=== PATIENT | female | born 1995 | race African-American/Black ===

== ENCOUNTER 2016-08-02 22:20 | Emergency (ER) | payer BC ==
[~2016-08-02] VITALS: Ht 157.5 cm; Wt 89.6 kg
[~2016-08-02 22:20] MED LIST: DICY1TAB26 PO; PANT20 PO; RANI150 PO; ZOFR4TAB3 PO
[2016-08-02 22:22] VITALS: BP 138/83; PULSE 107; RESP 18; TEMP 97.9; O2SAT 96
[2016-08-02 23:32] LABS: BACTERIA, URINE RARE /hpf; BLOOD, URINE NEG (NEG); GLUCOSE,URINE NEG (NEG); HYALINE CAST, URINE 3 /lpf (RARE); KETONE, URINE NEG (NEG); MUCUS URINE FEW /lpf (OCC); NITRITE,URINE NEG (NEG); SQUAMOUS EPITHELIAL CELL URINE 1 /hpf (0-5); URINE COLOR YELLOW (YELLW/STRAW)
[2016-08-03] MEDS ORDERED: CEPHALEXIN MONOHYDRATE 500 MG CAP PO ONE (00:15)
[2016-08-03] MEDS ORDERED: IBUPROFEN 600 MG TAB PO ONE (00:15)
[2016-08-03] MEDS ORDERED: CEPH-460 PO (00:24)
[2016-08-03] MEDS ORDERED: DIFL150T PO (00:24)
--- NOTE | 2016-08-03 00:25 | PD ---
HPI Chief Complaint: Complaint Time Seen by Provider: 22:50 Travel History International Travel<30 days: No Contact w/Intl Traveler<30days: No Traveled to known affect area: No [facility] Past Medical History Diminished Hearing: No Immunizations Current: Yes ?: Not LMP: 07/20/16 Past Surgical History Surgical History: No Previous Surgery Social History Alcohol Use: No Tobacco Use: No Substance Use: No Allergies-Medications (Allergen,Severity, Reaction): Coded Allergies: No Known Allergies (Unverified , 08/02/16) Reported Meds & Prescriptions Reported Meds & Active Scripts Active Diflucan (Fluconazole) 150 Mg Tab 150 Mg PO ONCE Keflex (Cephalexin) 500 Mg Cap 500 Mg PO Q6H 7 Days Data Data Last Documented VS Vital Signs Date Time Temp Pulse Resp B/P Pulse Ox O2 Delivery O2 Flow Rate FiO2 08/02/16 22:22 97.9 107 18 138/83 96 Room Air Orders Ua Includes Microscopic (08/02/16 22:50) Ed Urine Pregnancytest Poc (08/02/16 22:50) Wet Prep Profile (08/02/16 22:50) Gc And Chlamydia Pcr (08/02/16 22:50) Ibuprofen (Motrin) (08/03/16 00:15) Cephalexin (Keflex) (08/03/16 00:15) Labs Laboratory Tests Test 08/02/16 08/03/16 23:05 00:05 Urine Color YELLOW Urine Turbidity HAZY Urine pH 6.0 Urine Specific [place] 1.024 Urine Protein 30 mg/dL Urine Glucose (UA) NEG mg/dL Urine Ketones NEG mg/dL Urine Occult Blood NEG Urine Nitrite NEG Urine Bilirubin NEG Urine Urobilinogen LESS THAN 2.0 MG/DL Urine Leukocyte Esterase LARGE Urine RBC 163 /hpf Urine WBC 4 /hpf Urine Squamous Epithelial 1 /hpf Cells Urine Bacteria RARE /hpf Urine Hyaline Casts 3 /lpf Urine Mucus FEW /lpf Urine Yeast (Budding) OCC Microscopic Urinalysis Comment Chlamydia trachomatis DNA NOT DETECTED (PCR) Neisseria gonorrhoeae DNA NOT DETECTED (PCR) Clue Cells (Wet Prep) PRESENT Vaginal Trichomonas (Wet Prep) NONE SEEN Vaginal Yeast (Wet Prep) PRESENT MDM Medical Decision Making Medical Screen Exam Complete: Yes Emergency Medical Condition: Yes Diagnosis Primary Impression: UTI (urinary tract infection) Qualified Code: N30.01 - Acute cystitis with hematuria Additional Impressions: Yeast infection Vaginitis Additional Instructions: Recommend he follow-up with a primary care provider and your 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 Scripts Fluconazole (Diflucan)150 Mg [id number] Mg PO ONCE #1 TAB Ref 0 Prov:Yoan Saucedo MD 08/03/16 Cephalexin (Keflex)500 Mg [id number] Mg PO Q6H 7 Days Ref 0 Prov:Yoan Saucedo MD 08/03/16 Yoan Saucedo MD Aug 03, 2016 00:25
[2016-08-03 07:19] LABS: CHLAMYDIA PCR NOT DETECTED (NOT DETECT); NEISSERIA PCR NOT DETECTED (NOT DETECT)
--- NOTE | 2016-08-03 17:33 | PD ---
HPI Chief Complaint: Complaint Time Seen by Provider: 22:50 Travel History International Travel<30 days: No Contact w/Intl Traveler<30days: No Traveled to known affect area: No History of Present Illness HPI Patient is a 20 year old female presents for evaluation of vaginal burning and pain. Patient states she was discussing with her mother who told her she has a yeast infection and she had treated herself with vaginal treatments for the past two days. She states then started burning and cramping. States no chance for because she is a virgin. Patient denies fevers. Patient states has had pelvic exam once before and didn't like it. Denies n/v/d, chest pain, extremity pain, dysuria. PFSH Past Medical History Diminished Hearing: No Immunizations Current: Yes ?: Not LMP: 07/20/16 Past Surgical History Surgical History: No Previous Surgery Social History Alcohol Use: No Tobacco Use: No Substance Use: No Allergies-Medications (Allergen,Severity, Reaction): Coded Allergies: No Known Allergies (Unverified , 08/02/16) Reported Meds & Prescriptions Reported Meds & Active Scripts Active Diflucan (Fluconazole) 150 Mg Tab 150 Mg PO ONCE Keflex (Cephalexin) 500 Mg Cap 500 Mg PO Q6H 7 Days Review of Systems Except as stated in HPI: all other systems reviewed are Neg Physical Exam Narrative GENERAL: WD/WN in nad. SKIN: Warm and dry. HEAD: Atraumatic. Normocephalic. EYES: Pupils equal and round. No scleral icterus. No injection or drainage. ENT: No nasal bleeding or discharge. Mucous membranes pink and moist. NECK: Trachea midline. No JVD. CARDIOVASCULAR: Regular rate and rhythm. RESPIRATORY: No accessory muscle use. Clear to auscultation. Breath sounds equal bilaterally. GASTROINTESTINAL: Abdomen soft, non-tender, nondistended. Hepatic and splenic margins not palpable. GENITOURINARY: Performed with female nurse chiropractic physician at all times. Patient has signficant vaginal tenderness limiting exam. Has reddened vaginal kaur and moderate yeast like discharge. No cervical discharge. No obvious adenexal fullness nor tenderness. MUSCULOSKELETAL: Extremities without clubbing, cyanosis, or edema. No obvious deformities. NEUROLOGICAL: Awake and alert. No obvious cranial nerve deficits. Motor grossly within normal limits. Five out of 5 muscle strength in the arms and legs. Normal speech. PSYCHIATRIC: Appropriate mood and affect; insight and judgment normal. Data Data Last Documented VS Vital Signs Date Time Temp Pulse Resp B/P Pulse Ox O2 Delivery O2 Flow Rate FiO2 08/02/16 22:22 97.9 107 18 138/83 96 Room Air Orders Ua Includes Microscopic (08/02/16 22:50) Ed Urine Pregnancytest Poc (08/02/16 22:50) Wet Prep Profile (08/02/16 22:50) Gc And Chlamydia Pcr (08/02/16 22:50) Ibuprofen (Motrin) (08/03/16 00:15) Cephalexin (Keflex) (08/03/16 00:15) Labs Laboratory Tests Test 08/02/16 08/03/16 23:05 00:05 Urine Color YELLOW Urine Turbidity HAZY Urine pH 6.0 Urine Specific [place] 1.024 Urine Protein 30 mg/dL Urine Glucose (UA) NEG mg/dL Urine Ketones NEG mg/dL Urine Occult Blood NEG Urine Nitrite NEG Urine Bilirubin NEG Urine Urobilinogen LESS THAN 2.0 MG/DL Urine Leukocyte Esterase LARGE Urine RBC 163 /hpf Urine WBC 4 /hpf Urine Squamous Epithelial 1 /hpf Cells Urine Bacteria RARE /hpf Urine Hyaline Casts 3 /lpf Urine Mucus FEW /lpf Urine Yeast (Budding) OCC Microscopic Urinalysis Comment Chlamydia trachomatis DNA NOT DETECTED (PCR) Neisseria gonorrhoeae DNA NOT DETECTED (PCR) Clue Cells (Wet Prep) PRESENT Vaginal Trichomonas (Wet Prep) NONE SEEN Vaginal Yeast (Wet Prep) PRESENT MDM Medical Decision Making Medical Screen Exam Complete: Yes Emergency Medical Condition: Yes Differential Diagnosis Yeast infection, vaginitis, UTI, highly unlikely, STD highly unlikely. Narrative Course Patient roomed in ER. UPT negative. UA shows evidence of yeast infection. Discussed with patient at length after external examination that i cannot exclude other pathology without pelvic exam. She waivers on whether or not she would like pelvic exam. Patient ultimately agrees. Patient has significant vaginal wall tenderness. Yeast infection and UTI. WIll treat with difucan 150mg PO now and in one week. Diagnosis Primary Impression: UTI (urinary tract infection) Qualified Code: N30.01 - Acute cystitis with hematuria Additional Impressions: Yeast infection Vaginitis Patient Instructions: General Instructions, Urinary Tract Infection in Women ( ED) Departure Forms: Tests/Procedures Additional Instructions: Recommend he follow-up with a primary care provider and your crystal slicer within a week. Scripts Fluconazole (Diflucan)150 Mg [id number] Mg PO ONCE #1 TAB Ref 0 Prov:Yoan Saucedo MD 08/03/16 Cephalexin (Keflex)500 Mg [id number] Mg PO Q6H 7 Days Ref 0 Prov:Yoan Saucedo MD 08/03/16 Disposition: 01 DISCHARGE HOME Condition: Stable Yoan Saucedo MD Aug 03, 2016 17:32
== END 2016-08-03 00:47 | disposition home or self-care (01) ==
LOC: NEPC 22:20
DX: N30.01 Acute cystitis with hematuria (principal); B37.3 Candidiasis of vulva and vagina
CPT/HCPCS: 81001; 84703; 87210; 87491; 87591; 99283

== ENCOUNTER 2017-08-17 15:02 | Emergency (ER) | payer BC ==
[~2017-08-17 15:02] MED LIST changes: +CEPH-460 PO; -DICY1TAB26 PO; +DIFL150T PO; -PANT20 PO; -RANI150 PO; -ZOFR4TAB3 PO
[2017-08-17] MEDS ORDERED: IOHEXOL 350 MG/ML 10 ML VIAL (for RAD DIAG) IVCONTRAST ONE (15:03)
[2017-08-17 15:17] VITALS: BP 140/84; PULSE 92; RESP 16; TEMP 98.3; O2SAT 99
--- NOTE | 2017-08-17 16:25 | PD ---
HPI Chief Complaint: Abdominal Pain Time Seen by Provider: 16:17 Travel History International Travel<30 days: No Contact w/Intl Traveler<30days: No Traveled to known affect area: No History of Present Illness HPI 21-year-old female presents emergency department with approximate one-week history of nausea vomiting for the past 2 days with generalized abdominal cramping and diarrhea this morning. Patient denies fever or chills. She denies chest pain or shortness of breath. She denies upper respiratory symptoms. She denies urinary symptoms or vaginal symptoms. Pain is localized in the left upper quadrant. Patient's pain is approximately 7 out of 10. Patient denies blood in the stool. No history of colitis or diverticulitis in the past. She has no known drug allergies per [facility] Past Medical History Medical History: Denies Significant Hx Diminished Hearing: No Immunizations Current: Yes ?: Not LMP: 08/04/2017 Past Surgical History Surgical History: No Previous Surgery Social History Alcohol Use: No Tobacco Use: No Substance Use: No Allergies-Medications (Allergen,Severity, Reaction): Coded Allergies: No Known Allergies (Unverified Adverse Reaction, Unknown, 08/17/17) Reported Meds & Prescriptions Reported Meds & Active Scripts Active Diflucan (Fluconazole) 150 Mg Tab 150 Mg PO ONCE Keflex (Cephalexin) 500 Mg Cap 500 Mg PO Q6H 7 Days Review of Systems Except as stated in HPI: all other systems reviewed are Neg General / Constitutional: No: Fever Eyes: No: Visual changes HENT: No: Headaches Cardiovascular: No: Chest Pain or Discomfort Respiratory: No: Shortness of Breath Gastrointestinal: Positive: Nausea, Vomiting (2 days prior not today.), Diarrhea (Today.), Abdominal Pain (See history of present illness) Genitourinary: No: Dysuria Musculoskeletal: No: Pain Skin: No Rash Neurologic: No: Weakness Psychiatric: No: Depression Endocrine: No: Polydipsia Hematologic/Lymphatic: No: Easy Bruising Physical Exam Narrative GENERAL: Patient is in no obvious distress per SKIN: Warm and dry. Normal color. Normal turgor. HEAD: Atraumatic. Normocephalic. EYES: Pupils equal and round. No scleral icterus. No injection or drainage. ENT: No nasal bleeding or discharge. Mucous membranes pink and moist. Pharynx is clear. Airways patent NECK: Trachea midline. Supple and nontender. CARDIOVASCULAR: Regular rate and rhythm. RESPIRATORY: No accessory muscle use. Clear to auscultation. Breath sounds equal bilaterally. GASTROINTESTINAL: Abdomen soft, moderate left upper quadrant tenderness. Nondistended. No masses or specific rebound. No specific point tenderness or guarding. No CVA tenderness. Hepatic and splenic margins not palpable. MUSCULOSKELETAL: Extremities without clubbing, cyanosis, or edema. No obvious deformities. NEUROLOGICAL: Awake and alert. No obvious cranial nerve deficits. Motor grossly within normal limits. Five out of 5 muscle strength in the arms and legs. Normal speech. PSYCHIATRIC: Appropriate mood and affect; insight and judgment normal. Data Data Last Documented VS Vital Signs Date Time Temp Pulse Resp B/P (MAP) Pulse Ox O2 Delivery O2 Flow Rate FiO2 08/17/17 16:29 99 Room Air 08/17/17 15:17 98.3 92 16 140/84 (102) Orders Orders Complete Blood Count With Diff (08/17/17 15:29) Comprehensive Metabolic Panel (08/17/17 15:29) Lipase (08/17/17 15:29) Urinalysis - C+S If Indicated (08/17/17 15:29) Ed Urine Pregnancytest Poc (08/17/17 15:29) Iv Access Insert/Monitor (08/17/17 16:18) Oximetry (08/17/17 16:18) NPO (08/17/17 16:18) Oxygen Administration (08/17/17 16:18) Ondansetron Inj (Zofran Inj) (08/17/17 16:30) Dicyclomine (Bentyl) (08/17/17 16:30) Sodium Chlor 0.9% 1000 Ml Inj (Ns 1000 M (08/17/17 16:30) Ct Abd/Pel W Iv Contrast(Rout) (08/17/17 16:49) Iohexol 350 Inj (Omnipaque 350 Inj) (08/17/17 15:03) Abdomen, Flat & Upright (08/17/17 17:17) Labs Laboratory Tests Test 08/17/17 16:25 White Blood Count 5.6 TH/MM3 Red Blood Count 4.20 MIL/MM3 Hemoglobin 13.1 GM/DL Hematocrit 38.3 % Mean Corpuscular Volume 91.2 FL Mean Corpuscular Hemoglobin 31.0 PG Mean Corpuscular Hemoglobin Concent 34.1 % Red Cell Distribution Width 12.5 % Platelet Count 262 TH/MM3 Mean Platelet Volume 8.4 FL Neutrophils (%) (Auto) 60.2 % Lymphocytes (%) (Auto) 29.4 % Monocytes (%) (Auto) 8.3 % Eosinophils (%) (Auto) 1.2 % Basophils (%) (Auto) 0.9 % Neutrophils # (Auto) 3.4 TH/MM3 Lymphocytes # (Auto) 1.6 TH/MM3 Monocytes # (Auto) 0.5 TH/MM3 Eosinophils # (Auto) 0.1 TH/MM3 Basophils # (Auto) 0.0 TH/MM3 CBC Comment DIFF FINAL Differential Comment Urine Color YELLOW Urine Turbidity HAZY Urine pH 6.5 Urine Specific [place] 1.020 Urine Protein NEG mg/dL Urine Glucose (UA) NEG mg/dL Urine Ketones NEG mg/dL Urine Occult Blood NEG Urine Nitrite NEG Urine Bilirubin NEG Urine Urobilinogen LESS THAN 2.0 MG/DL Urine Leukocyte Esterase MOD Urine RBC 1 /hpf Urine WBC 2 /hpf Urine Squamous Epithelial Cells 6 /hpf Microscopic Urinalysis Comment CULT NOT INDICATED Blood Urea Nitrogen 16 MG/DL Creatinine 0.76 MG/DL Random Glucose 87 MG/DL Total Protein 7.9 GM/DL Albumin 4.0 GM/DL Calcium Level 9.0 MG/DL Alkaline Phosphatase 85 U/L Aspartate Amino Transf (AST/SGOT) 23 U/L Alanine Aminotransferase (ALT/SGPT) 15 U/L Total Bilirubin 0.4 MG/DL Sodium Level 139 MEQ/L Potassium Level 4.9 MEQ/L Chloride Level 105 MEQ/L Carbon Dioxide Level 29.1 MEQ/L Anion Gap 5 MEQ/L Estimat Glomerular Filtration Rate 117 ML/MIN Lipase 114 U/L [facility] Medical Decision Making Medical Screen Exam Complete: Yes Emergency Medical Condition: Yes Differential Diagnosis Abdominal pain. Gastroenteritis. Colitis. Diarrhea. UTI. Narrative Course Patient is medically stable at time of exam. Labs ordered including CBC, CMP, lipase, urinalysis, urine test. CT without IV contrast is ordered of the abdomen pelvis in triage. Question bilateral inflammation of the ovaries noted. X-ray upright and flat is ordered showing no signs of obstruction. CBC, CMP, lipase, and urinalysis are all within normal limits. Urine test is negative. Patient is felt to have gastroenteritis with diarrhea. I do not suspect PID. Patient treated empirically with Zofran 4 mg every 6 hours as needed nausea #12 Patient also given Bentyl 10 mg every 6 hours as needed #12 Patient is to rest, push fluids, take Tylenol and ibuprofen as needed, and follow-up if symptoms do not improve over the next several days. Diagnosis Primary Impression: Viral gastroenteritis Patient Instructions: Acute Diarrhea (ED), General Instructions Departure Forms: School Release Return to School Date: Aug 19, 2017 Additional Instructions: CT without IV contrast is ordered of the abdomen pelvis in triage. Question bilateral inflammation of the ovaries noted. X-ray upright and flat is ordered showing no signs of obstruction. CBC, CMP, lipase, and urinalysis are all within normal limits. Urine test is negative. Patient is felt to have gastroenteritis with diarrhea. I do not suspect PID. Patient treated empirically with Zofran 4 mg every 6 hours as needed nausea #12 Patient also given Bentyl 10 mg every 6 hours as needed #12 Patient is to rest, push fluids, take Tylenol and ibuprofen as needed, and follow-up if symptoms do not improve over the next several days. Med/Other Pt SpecificInfo: Prescription(s) given Disposition: 01 DISCHARGE HOME Condition: Stable Justino Casas Aug 17, 2017 16:25
[2017-08-17 16:29] VITALS: O2SAT 99
[2017-08-17] MEDS ORDERED: ONDANSETRON HCL 4 MG/2 ML VIAL IV PUSH ONE (16:30)
[2017-08-17] MEDS ORDERED: DICYCLOMINE HCL 10 MG CAP PO ONE (16:30)
[2017-08-17] MEDS ORDERED: SODIUM CHLOR 0.9% 1000 ML INJ 1,000 ML IV ONE (16:30)
[2017-08-17 16:47] LABS: AUTOMATED NEUTROPHIL # 3.4 TH/MM3 (1.8-7.7); BASOPHIL % 0.9 % (0.0-2.0); EOSINOPHIL # 0.1 TH/MM3 (0-0.4); EOSINOPHIL % 1.2 % (0.0-4.0); HEMATOCRIT 38.3 % (35.0-46.0); HEMOGLOBIN 13.1 GM/DL (11.6-15.3); LYMPH % 29.4 % (9.0-44.0); LYMPHOCYTE # 1.6 TH/MM3 (1.0-4.8); MEAN CELL VOLUME 91.2 FL (80.0-100.0); MEAN CORPUSCULAR HGB CONC 34.1 % (32.0-36.0); MEAN PLATELET VOLUME 8.4 FL (7.0-11.0); MONO % 8.3 % (0.0-8.0); MONOCYTE # 0.5 TH/MM3 (0-0.9); NEUT % 60.2 % (16.0-70.0); PLATELET COUNT 262 TH/MM3 (150-450); RED CELL DISTRIBUTION WIDTH 12.5 % (11.6-17.2); WHITE BLOOD COUNT 5.6 TH/MM3 (4.0-11.0)
[2017-08-17 16:52] LABS: BILIRUBIN, URINE NEG (NEG); BLOOD, URINE NEG (NEG); GLUCOSE,URINE NEG (NEG); KETONE, URINE NEG (NEG); NITRITE,URINE NEG (NEG); PH, URINE 6.5 (5.0-8.5); SQUAMOUS EPITHELIAL CELL URINE 6 /hpf (0-5); URINE COLOR YELLOW (YELLW/STRAW); URINE LEUKOCYTE ESTERASE MOD (NEG)
--- NOTE | 2017-08-17 17:15 | RADRPT ---
EXAM DATE/TIME: 08/17/2017 16:50 [facility] COMPARISON: No previous studies available for comparison. INDICATIONS : Left lower quadrant pain with nausea,vomiting diarrhea IV CONTRAST: 80 cc Omnipaque 350 (iohexol) IV ORAL CONTRAST: No oral contrast ingested. RADIATION DOSE: 7.31 CTDIvol (mGy) MEDICAL HISTORY : None SURGICAL HISTORY : None. ENCOUNTER: Initial ACUITY: 1 week PAIN SCALE: 7/10 LOCATION: Left lower quadrant Abdomen TECHNIQUE: Volumetric scanning of the abdomen and pelvis was performed. Using automated exposure control and ad justment of the mA and/or kV according to patient size, radiation dose was kept as low as reasonably achievable to obtain optimal diagnostic quality images. DICOM format image data is available electro nically for review and comparison. FINDINGS: The liver and spleen are normal in size and no focal defects are identified. There are numerous air c ontaining gallstones within the gallbladder with borderline wall thickening but no findings of acute cholecystitis. The adrenal glands and kidneys appear normal bilaterally. No hydronephrosis or mass le sions are identified. Examination of the pelvis demonstrates no evidence of free fluid or pelvic mass. No abnormally enlarg ed inguinal or retroperitoneal lymph nodes are present. The bladder is unremarkable. The lower uterin e segment and adnexa are prominent appearing bilaterally but no evidence of abscess. Correlation B. o utlet regards to the possibility of pelvic inflammatory disease. The colon appears normal. CONCLUSION: 1. Adnexal prominence bilaterally which may reflect pelvic inflammatory disease without evidence of a bscess. The remainder of the examination is unremarkable. Jevon Montanez MD on August 17, 2017 at 17:10 Board Certified Radiologist. This report was verified electronically.
[2017-08-17 17:17] LABS: ALKALINE PHOSPHATASE 85 U/L (45-117); TOTAL BILIRUBIN ADULT 0.4 MG/DL (0.2-1.0); TOTAL PROTEIN 7.9 GM/DL (6.4-8.2)
[2017-08-17 17:21] LABS: ALT (GPT) 15 U/L (9-42); AST (GOT) 23 U/L (16-38); BICARBONATE 29.1 MEQ/L (21.0-32.0); BLOOD UREA NITROGEN 16 MG/DL (7-18); CHLORIDE 105 MEQ/L (98-107); CREATININE 0.76 MG/DL (0.50-1.00); GLOMERULAR FILTRATION RATE 117 ML/MIN (>89); GLUCOSE,RANDOM 87 MG/DL (74-106); SODIUM (NA) 139 MEQ/L (136-145)
--- NOTE | 2017-08-17 17:29 | RADRPT ---
EXAM DATE/TIME: 08/17/2017 17:03 [facility] COMPARISON: No previous studies available for comparison. INDICATIONS : Nausea, vomiting, diarrhea, abdominal pain. MEDICAL HISTORY : None. SURGICAL HISTORY : None. ENCOUNTER: Initial ACUITY: 1 week PAIN SCORE: 7/10 LOCATION: Left abdomen. FINDINGS: Supine and upright views of the abdomen were performed. The abdominal bowel gas pattern is normal. No air fluid levels are seen. No abnormal masses, calcifications, or organomegaly is seen. The visu alized lower lungs are clear. No evidence of free intraperitoneal gas. The osseous structures are u nremarkable. Contrast is present in a normal-appearing urinary system and bladder CONCLUSION: No evidence of obstruction. Jevon Montanez MD on August 17, 2017 at 17:26 Board Certified Radiologist. This report was verified electronically.
[2017-08-17] MEDS ORDERED: ZOFR4TAB PO (17:35)
[2017-08-17] MEDS ORDERED: DICY10 PO (17:35)
== END 2017-08-17 18:43 | disposition home or self-care (01) ==
LOC: NEPD 15:02
DX: A08.4 Viral intestinal infection, unspecified (principal); Z79.899 Other long term (current) drug therapy
CPT/HCPCS: 74177; 80053; 81001; 83690; 84703; 85025; 96374; 99285; J2405; J7030; Q9967; 74019

== ENCOUNTER 2018-08-07 11:31 | Inpatient (IN) ==
[2018-08-07] MEDS ORDERED: Aluminum/Magnesium/Simethacone Susp 30 ML UDC PO ONE (11:46)
[2018-08-07] MEDS ORDERED: Famotidine PF Inj 20 MG/2 ML Vial IV.PUSH ONE (11:46)
[2018-08-07] MEDS ORDERED: Atropine/Scopolamine/Hyoscyamine/Phenobarb 10 ML Liq UDC PO ONE (11:46)
--- NOTE | 2018-08-07 11:56 | ED ---
HPI General Chief Complaint: Chest Pain Stated Complaint: Chest Pain Time Seen by Provider: 08/07/18 11:39 Source: patient Mode of arrival: ambulatory Limitations: no limitations History of Present Illness HPI narrative: 22-year-old female complains of epigastric abdominal pain and chest pain. Patient states the pain started about 4 days ago. Patient stated pain is aching pain started over the epigastric area with radiation to the substernal area. Patient denies any coughing congestion. Patient states that she has nausea. Patient stated pain is worse with eating and at night. Patient denies any dysuria frequency. Patient denies any vaginal discharge or bleeding. Patient status post cholecystectomy last year. Patient denies history hypertension, diabetes, hyperlipidemia. Patient is a non-smoker. Patient has family history of heart disease. Patient was seen in emergency room 2 days ago and liver ultrasound was negative acute pathology. LFTs mildly elevated. Patient states that her urine is more orange since discharge. MD complaint: Reports chest pain STEMI Alert: No Onset (ago): day(s) Duration: constant Onset: during rest Pain location: Reports substernal Severity: moderate Severity scale (1-10): 7 Quality: Reports aching Pain radiation: Reports abdomen Relieving factors: nothing Exacerbating factors: nothing Associated symptoms: Reports nausea Treatments prior to arrival chest pain: Reports none Related Data Previous Rx's Medication Instructions Recorded famotidine [Pepcid] 20 mg PO DAILY #14 tab 08/05/18 ondansetron HCl [Zofran] 4 mg PO DAILY PRN #20 tab 08/05/18 Allergies Allergy/AdvReac Type Severity Reaction Status Date / Time No Known Allergies Allergy Verified 08/05/18 15:51 Review of Systems ROS: all other systems reviewed are negative PMFSH Medical History Medical History Patient denies medical problems (Acute) Surgical History Surgical History Hx of cholecystectomy (Acute) Social History Social History Substance History: No History of Abuse Second Hand Smoke Exposure: No Smoking Status: Never smoker How Often Do You Have a Drink Containing Alcohol: 2 to 4 times a month Immunization History Tetanus Immunization: Unsure Exam Narrative Exam Narrative: GENERAL: Well-nourished, well-developed patient. SKIN: Focused skin assessment warm/dry. HEAD: Normocephalic. EYES: No scleral icterus. No injection or drainage. NECK: Supple, trachea midline. No JVD or lymphadenopathy. CARDIOVASCULAR: Regular rate and rhythm without murmurs, gallops, or rubs. RESPIRATORY: Breath sounds equal bilaterally. No accessory muscle use. GASTROINTESTINAL: Abdomen soft, nondistended. Patient has moderate tenderness on palpation epigastric area. No rebound tenderness. No mass. MUSCULOSKELETAL: No cyanosis, or edema. BACK: Nontender without obvious deformity. No CVA tenderness. Neurologic exam normal. Course Initial Documented Vital Signs Temperature 98 F 08/07/18 11:32 Pulse Rate 92 H 08/07/18 11:32 Respiratory Rate 24 08/07/18 11:32 Blood Pressure 156/64 H 08/07/18 11:32 Pulse Oximetry 98 08/07/18 11:32 Last Documented Vital Signs Temperature 98 F 08/07/18 11:32 Pulse Rate 78 08/07/18 18:42 Respiratory Rate 18 08/07/18 18:42 Blood Pressure 126/79 08/07/18 18:42 Pulse Oximetry 99 08/07/18 18:42 Medical Decision Making MDM Narrative Medical decision making narrative: 22-year-old female with epigastric abdominal pain and substernal chest pain. Start post cholecystectomy. Normal saline solution 125 cc an hour. Pepcid 20 mg IV. Maalox 30 cc p.o. 10 cc p.o. Medical Screen Exam Complete: Yes Emergency Medical Condition: Yes Differential Diagnosis Differential Diagnosis: Differential diagnosis including gastritis, PUD, pancreatitis, colitis, UTI, pyelonephritis, nephrolithiasis, angina, OR, PE, pneumothorax. Lab Data Lab results reviewed: Yes I reviewed the patient's lab results. Result diagrams: 08/07/18 11:45 08/07/18 11:45 Lab Results 08/07/18 08/07/18 08/07/18 Range/Units 11:45 11:45 11:45 WBC 3.8 L (4.0-11.0) th/mm3 RBC 4.34 (4.00-5.30) mil/mm3 Hgb 13.3 (11.6-15.3) gm/dL Hct 39.7 (35.0-46.0) % MCV 91.6 (80.0-100.0) fL MCH 30.7 (27.0-34.0) pg MCHC 33.6 (32.0-36.0) % RDW 13.1 (11.6-17.2) % Plt Count 231 D (150-450) th/mm3 MPV 8.9 (7.0-11.0) fL Neut % (Auto) 62.7 (16.0-70.0) % Lymph % (Auto) 23.9 (9.0-44.0) % Glascock % (Auto) 9.9 H (0.0-8.0) % Eos % (Auto) 2.2 (0.0-4.0) % Baso % (Auto) 1.3 (0.0-2.0) % Neut # (Auto) 2.4 (1.8-7.7) th/mm3 Lymph # (Auto) 0.9 L (1.0-4.8) th/mm3 Glascock # (Auto) 0.4 (0.0-0.9) th/mm3 Eos # (Auto) 0.1 (0.0-0.4) th/mm3 Baso # (Auto) 0.1 (0.0-0.2) th/mm3 WBC Differential . Differential Comment Auto diff final PT 10.3 (9.8-11.6) sec INR 1.0 Ratio APTT 31.2 (23.4-31.7) sec Sodium 138 (136-145) meq/L Potassium 3.7 D (3.5-5.1) meq/L Chloride 106 (98-107) meq/L Carbon Dioxide 25.6 (21.0-32.0) meq/L Anion Gap 6 (5-15) meq/L BUN 9 (7-18) mg/dL Creatinine 0.79 (0.50-1.00) mg/dL Estimated GFR Greater than 89 (>89) mL/min Random Glucose 116 H (74-106) mg/dL Calcium 8.8 (8.5-10.1) mg/dL Total Bilirubin 3.1 H (0.2-1.0) mg/dL AST 309 H (15-37) U/L ALT 612 H (10-53) U/L Alkaline Phosphatase 210 H (45-117) U/L Total Creatine Kinase 79 (26-192) U/L Troponin I Less than 0.02 L (0.02-0.05) ng/mL Total Protein 8.3 H D (6.4-8.2) g/dL Albumin 4.0 (3.4-5.0) g/dL Lipase 137 (73-393) U/L Urine Color (Yellw/Straw) Urine Clarity (Clear) Urine pH (5.0-8.5) Ur Specific Mel[place] (1.002-1.035) Urine Protein (Neg-Trace) mg/dL Urine Glucose (UA) (Negative) mg/dL Urine Ketones (Negative) mg/dL Urine Occult Blood (Negative) Urine Nitrate (Negative) Urine Bilirubin (Negative) Urine Ictotest (Negative) Urine Urobilinogen (Less than 2) mg/dL Ur Leukocyte Esterase (Negative) Urine RBC (0-3) /hpf Urine WBC (0-5) /hpf Ur Squamous Epith Cells (0-5) /hpf Urine Mucus (Occasional) /lpf Micro UA Comment Ur Microscopic Review Urine Culture Comments 08/07/18 Range/Units 12:00 WBC (4.0-11.0) th/mm3 RBC (4.00-5.30) mil/mm3 Hgb (11.6-15.3) gm/dL Hct (35.0-46.0) % MCV (80.0-100.0) fL MCH (27.0-34.0) pg MCHC (32.0-36.0) % RDW (11.6-17.2) % Plt Count (150-450) th/mm3 MPV (7.0-11.0) fL Neut % (Auto) (16.0-70.0) % Lymph % (Auto) (9.0-44.0) % Glascock % (Auto) (0.0-8.0) % Eos % (Auto) (0.0-4.0) % Baso % (Auto) (0.0-2.0) % Neut # (Auto) (1.8-7.7) th/mm3 Lymph # (Auto) (1.0-4.8) th/mm3 Glascock # (Auto) (0.0-0.9) th/mm3 Eos # (Auto) (0.0-0.4) th/mm3 Baso # (Auto) (0.0-0.2) th/mm3 WBC Differential Differential Comment PT (9.8-11.6) sec INR Ratio APTT (23.4-31.7) sec Sodium (136-145) meq/L Potassium (3.5-5.1) meq/L Chloride (98-107) meq/L Carbon Dioxide (21.0-32.0) meq/L Anion Gap (5-15) meq/L BUN (7-18) mg/dL Creatinine (0.50-1.00) mg/dL Estimated GFR (>89) mL/min Random Glucose (74-106) mg/dL Calcium (8.5-10.1) mg/dL Total Bilirubin (0.2-1.0) mg/dL AST (15-37) U/L ALT (10-53) U/L Alkaline Phosphatase (45-117) U/L Total Creatine Kinase (26-192) U/L Troponin I (0.02-0.05) ng/mL Total Protein (6.4-8.2) g/dL Albumin (3.4-5.0) g/dL Lipase (73-393) U/L Urine Color Elsy (Yellw/Straw) Urine Clarity Hazy H (Clear) Urine pH 5.0 (5.0-8.5) Ur Specific [place] 1.021 (1.002-1.035) Urine Protein Negative (Neg-Trace) mg/dL Urine Glucose (UA) Negative (Negative) mg/dL Urine Ketones Negative (Negative) mg/dL Urine Occult Blood Negative (Negative) Urine Nitrate Negative (Negative) Urine Bilirubin Moderate H (Negative) Urine Ictotest Positive H (Negative) Urine Urobilinogen 2.0 H (Less than 2) mg/dL Ur Leukocyte Esterase Trace H (Negative) Urine RBC 1 (0-3) /hpf Urine WBC 10 H (0-5) /hpf Ur Squamous Epith Cells 20 (0-5) /hpf Urine Mucus Many H (Occasional) /lpf Micro UA Comment Culture indicated Ur Microscopic Review Not Reportable Urine Culture Comments Culture indicated Imaging Data Radiologist's impression: Abdomen/Pelvis CT 08/07/18 11:46 CONCLUSION: 1. No acute findings. Previous cholecystectomy with mild intrahepatic biliary ductal dilatation. Mild constipation. Cholangiopancreatography MRI 08/07/18 15:48 CONCLUSION: 1. Post cholecystectomy with commonly seen mild biliary ductal dilatation. Normal pancreatic duct. No evidence for choledocholithiasis. No acute findings. Discharge Plan Discharge Disposition Patient Disposition: ED Admit(ED Internal Use Only) Discharge Order Discharge Orders: ED Use Only Admit Order (Routine); Ordered 08/07/18 Ordered By: Zaki Baum Discharge Details Diagnosis: Abdominal pain, Elevated bilirubin Physicians Team ED Provider: Zaki Baum Primary Care Provider: Primary Care Jennyfer Suarez Attending Provider: Jesus Hong Other Providers: Briana Gomes Discharge Interventions Interventions: Vital Signs Last Done: 08/07/18 18:42 ED Discharge Assessment Last Done: 08/07/18 18:42 Status ED Status: Admitted Observation Patient
[2018-08-07] MEDS ORDERED: Sod Chloride 0.9% Inj 1,000 ML IV.CONT SCH (12:00)
[2018-08-07 12:45] LABS: Baso # (Auto) 0.1 th/mm3 (0.0-0.2); Baso % (Auto) 1.3 % (0.0-2.0); Eos # (Auto) 0.1 th/mm3 (0.0-0.4); Eos % (Auto) 2.2 % (0.0-4.0); Hematocrit 39.7 % (35.0-46.0); Hemoglobin 13.3 gm/dL (11.6-15.3); Lymph # (Auto) 0.9 th/mm3 (1.0-4.8); Lymph % (Auto) 23.9 % (9.0-44.0); Mean Corpuscular HGB Conc 33.6 % (32.0-36.0); Mean Corpuscular Hemoglobin 30.7 pg (27.0-34.0); Mean Corpuscular Volume 91.6 fL (80.0-100.0); Mean Platelet Volume 8.9 fL (7.0-11.0); Mono # (Auto) 0.4 th/mm3 (0.0-0.9); Mono % (Auto) 9.9 % (0.0-8.0); Neut # (Auto) 2.4 th/mm3 (1.8-7.7); Neut % (Auto) 62.7 % (16.0-70.0); Platelet Count 231 th/mm3 (150-450); Red Blood Count 4.34 mil/mm3 (4.00-5.30); Red Cell Distribution Width 13.1 % (11.6-17.2); White Blood Count 3.8 th/mm3 (4.0-11.0)
[2018-08-07 12:55] LABS: Activated Partial Thrombo Time 31.2 sec (23.4-31.7); Prothrombin Time 10.3 sec (9.8-11.6)
[2018-08-07 12:58] LABS: Bilirubin,Urine Moderate (Negative); Clarity,Urine Hazy (Clear); Color,Urine Amber (Yellw/Straw); Glucose,Urine (UA) Negative (Negative); Leukocyte Esterase,Urine Trace (Negative); Mucus,Urine Many /lpf (Occasional); Nitrite,Urine Negative (Negative); Specific Gravity,Urine 1.021 (1.002-1.035); Squamous Epithelial Cell,Urine 20 /hpf (0-5)
[2018-08-07 13:00] LABS: Ictotest,Urine Positive (Negative)
[2018-08-07 13:14] LABS: Alanine Aminotransferase 612 U/L (10-53); Alkaline Phosphatase 210 U/L (45-117); Anion Gap 6 meq/L (5-15); Aspartate Aminotransferase 309 U/L (15-37); Blood Urea Nitrogen 9 mg/dL (7-18); Calcium 8.8 mg/dL (8.5-10.1); Carbon Dioxide 25.6 meq/L (21.0-32.0); Chloride 106 meq/L (98-107); Glomerular Filtration Rate Greater Than 89 mL/min (>89); Glucose,Random 116 mg/dL (74-106); Lipase 137 U/L (73-393); Potassium 3.7 meq/L (3.5-5.1); Sodium 138 meq/L (136-145); Total Protein 8.3 g/dL (6.4-8.2)
[2018-08-07 13:15] LABS: Creatine Kinase 79 U/L (26-192)
--- NOTE | 2018-08-07 14:40 | CT ---
EXAM DATE: 08/07/2018 2:16 PM EST AGE/SEX: 22 years / Female INDICATIONS: Complains of epigastric and chest pain, gastritis diagnosed recently. CLINICAL DATA: This is the patient's initial encounter. Patient reports that signs and symptoms have been present for 1 day and indicates a pain score of 8/10. MEDICAL/SURGICAL HISTORY: None. Cholecystectomy. ORAL CONTRAST: No oral contrast ingested. RADIATION DOSE: 15.73 CTDI (mGy) COMPARISON: [facility] [place], CT ABDOMEN & PELVIS W CONTRAST, 08/17/2017. . TECHNIQUE: Multiple contiguous axial images were obtained through the abdomen and pelvis following b olus infusion of 75ml ml Omnipaque 350 (iohexol) nonionic water-soluble contrast as a single exam d ose. No oral contrast ingested. Using automated exposure control and adjustment of the mA and/or kV according to patient size, radiation dose was kept as low as reasonably achievable to obtain optimal diagnostic quality images. DICOM format image data is available electronically for review and compar isaias. FINDINGS: Lung bases are clear. Spleen, adrenals, kidneys and pancreas are unremarkable. Previous cholecystecto my. Mild intrahepatic biliary ductal dilatation. No free fluid. No bowel obstruction. No adenopathy. Mild constipation. CONCLUSION: 1. No acute findings. Previous cholecystectomy with mild intrahepatic biliary ductal dilatation. Mil d constipation. Electronically signed by: Kishor Jules MD Board Certified Radiologist 08/07/2018 2:39 PM EST
--- NOTE | 2018-08-07 16:17 | P.HPFP ---
History of Present Illness Primary Care Physician: No Primary Care Physician <Jesus Hong Kala - 08/07/18 19:57> No Primary Care Physician <Gi Millard - 08/07/18 23:16> Chief Complaint: Epigastric pain <Gi Millard - 08/07/18 23:16> History of Present Illness: Patient is a 22 year old female who presents to the [facility] ED for evaluation of epigastric pain. Pain started on (08/04) around 5:30 p.m., following the patient's first meal of the day. Patient has since been experiencing a burning pain involving her epigastric region as well as chest tightness. The pain is non-radiating but continuous. She rates the pain an 8/ 10. The pain worsens with food. She has not found anything that provides relief. In the past, patient would eat pickle or drink vinegar to make heartburn go away but these remedies have not alleviate the current pain. Patient was seen at the [facility] ED on Wednesday, an abdominal US at that time was unremarkable. She received supportive care, felt a little better and was discharged from the ED. Once home, she started eating and the pain returned. She also reports nausea and non-bloody vomiting q2hr yesterday; no vomit today. She denies diarrhea. Her last bowel movement was one week ago, which is unusual for her. In fact, since her cholecystectomy last summer, she has been experiencing diarrhea or quick stools following meals. She denies fever and chills. She reports her urine looking orange, which is abnormal. She denies an odor to the urine. She denies pain with urination or increased frequency in urination. <Gi Millard - 08/07/18 23:16> - Diagnosis (1) Abdominal pain (2) Abnormal liver enzymes (3) Elevated bilirubin (4) Nutrition, metabolism, and development symptoms <Gi Millard 08/07/18 23:16> Inpatient Certification: I certify that the inpatient services were ordered in accordance with Medicare regulations governing the order. This includes certification that hospital inpatient services are reasonable and necessary and in the case of services not specified as inpatient-only under 42 CFR 419.22(n), that they are appropriately provided as inpatient services in accordance to with the 2-midnight benchmark under 43 CFR 412.3(e) <Jesus Hong 08/07/18 19:59> Estimated Total Length of Stay (Days): 2 <Gi Millard 08/07/18 23:16> Plans for Post Hospital Care: Home <Gi Millard 08/07/18 23:16> Review of Systems All other systems reviewed negative except as stated in HPI <Gi Millard 08/07/18 16:17> PMFSH - History History Provided By: Patient <Gi Millard 08/07/18 16:17> - Medical / Surgical Hx Neg / Unobtainable Medical Problems Denied: Yes <Gi Millard 08/07/18 23:16> - Medical History Medical History: Medical History (Last Reviewed 08/07/18 @ 11:56 by Zaki Baum MD) Patient denies medical problems <Jesus Hong 08/07/18 19:59> Medical History (Last Reviewed 08/07/18 @ 11:56 by Zaki Baum MD) Patient denies medical problems <Gi Millard 08/07/18 16:17> - Surgical History Surgical History: Surgical History (Last Reviewed 08/07/18 @ 11:56 by Zaki Baum MD) Hx of cholecystectomy <Jesus Hong 08/07/18 19:59> Surgical History (Last Reviewed 08/07/18 @ 11:56 by Zaki Baum MD) Hx of cholecystectomy <Macoliudmila Gi Hale 08/07/18 16:17> - Family History Family History: Family History (Last Updated 08/07/18 @ 23:00 by Gi Hale MD, R2) Other Family history of diabetes mellitus Family history of heart disease <Lonny AlexiaGi 08/07/18 23:16> - Tobacco History Second Hand Smoke Exposure: No <Gi Millard 08/07/18 16:17> Tobacco Use In Past 30 Days: No <Lonny AlexiaGi 08/07/18 23:16> Smoking Status: Never smoker <Lonny AlexiaKymberlyGi 08/07/18 16:17> - Alcohol History How Often Do You Have a Drink Containing Alcohol: 2 to 4 times a month < Gi Millard 08/07/18 23:16> - Substance Use History Substance History: No History of Abuse (Denies IV drug use) <Gi Millard 08/07/18 23:16> - Travel History History of Recent Travel: No <Gi Millard 08/07/18 23:16> Recent Travel in the [facility] Within the Last 8 Weeks: No <Gi Millard 23:16> Recent Travel Out of the Country Within the Last 8 Weeks: No <Gi Millard 08/07/18 23:16> - Immunization History Tetanus Immunization: Unsure <Gi Millard 08/07/18 16:17> Medications and Allergies Allergies Allergy/AdvReac Type Severity Reaction Status Date / Time No Known Allergies Allergy Verified 08/05/18 15:51 <Gi Millard 08/07/18 16:17> Active Medications: Active Medications Acetaminophen (Tylenol) 650 mg PO Q4H PRN PRN Reason: Temp > 100.4 Sodium Chloride (Ns Inj) 1,000 mls @ 125 mls/hr IV.CONT .Q8H KOMAL Stop: 08/07/18 19:59 Last Admin: 08/07/18 12:29 Dose: 125 mls/hr Ondansetron HCl (Zofran Inj) 4 mg IV.PUSH Q6H PRN PRN Reason: NAUSEA OR VOMITING Polyethylene Glycol (Miralax) 17 gm PO DAILY KOMAL Senna/Docusate Sodium (Tish-Colace) 1 tab PO BID KOMAL Sodium Chloride (Ns Flush) 2 ml IV.FLUSH BID KOMAL Sodium Chloride (Ns Flush) 2 ml IV.FLUSH PRN PRN PRN Reason: FLUSH AFTER USING IV ACCESS <Jesus Hong - 08/07/18 19:57> Active Medications Sodium Chloride (Ns Inj) 1,000 mls @ 125 mls/hr IV.CONT .Q8H KOMAL Stop: 08/07/18 19:59 Last Admin: 08/07/18 12:29 Dose: 125 mls/hr <Gi Millard 08/07/18 16:17> Exam Vital signs: Vital Signs 08/07/18 11:32 08/07/18 11:34 08/07/18 11:46 Temperature 98 F Pulse Rate 92 H 92 H Respiratory Rate 24 18 Blood Pressure 156/64 H 143/87 H Pulse Oximetry 98 100 98 08/07/18 15:34 08/07/18 16:24 08/07/18 17:22 Temperature Pulse Rate 77 82 Respiratory Rate 20 18 Blood Pressure 137/92 H 126/87 Pulse Oximetry 100 99 08/07/18 18:42 08/07/18 19:34 Temperature 97.7 F Pulse Rate 78 82 Respiratory Rate 18 16 Blood Pressure 126/79 127/74 Pulse Oximetry 99 99 Intake & Output 08/07/18 08/07/18 08/08/18 06:59 18:59 06:59 Weight 88.451 kg Other: Weight On Admission 88.451 kg <GelyJesus Armendariz - 08/07/18 19:57> Vital Signs 08/07/18 11:32 08/07/18 11:34 08/07/18 11:46 Temperature 98 F Pulse Rate 92 H 92 H Respiratory Rate 24 18 Blood Pressure 156/64 H 143/87 H Pulse Oximetry 98 100 98 08/07/18 15:34 Temperature Pulse Rate 77 Respiratory Rate 20 Blood Pressure 137/92 H Pulse Oximetry 100 Intake & Output 08/06/18 08/07/18 08/07/18 18:59 06:59 18:59 Weight 88.451 kg <Lonny HaleGi - 08/07/18 16:17> Narrative: GENERAL: -[place] female in no acute distress. SKIN: Warm and dry. HEAD: Atraumatic. Normocephalic. EYES: Pupils equal and round. No scleral icterus. No injection or drainage. ENT: No nasal bleeding or discharge. Mucous membranes pink and moist. NECK: Trachea midline. No JVD. CARDIOVASCULAR: Regular rate and rhythm. RESPIRATORY: No accessory muscle use. Clear to auscultation. Breath sounds equal bilaterally. GASTROINTESTINAL: Positive bowel sounds. Abdomen soft, nondistended. Tenderness upon palpation over epigastric region. No masses palpable. MUSCULOSKELETAL: Extremities without clubbing, cyanosis, or edema. No obvious deformities. NEUROLOGICAL: Awake and alert. No obvious cranial nerve deficits. Motor grossly within normal limits. Normal speech. PSYCHIATRIC: Appropriate mood and affect; insight and judgment normal. <Labell Gi Hale - 08/07/18 23:16> Results - Labs Result diagrams: 08/07/18 11:45 08/07/18 11:45 <Labell Gi Hale - 08/07/18 16:17> Abnormal lab results 08/07/18 08/07/18 08/07/18 Range/Units 11:45 11:45 12:00 WBC 3.8 L (4.0-11.0) th/mm3 [place] % (Auto) 9.9 H (0.0-8.0) % Lymph # (Auto) 0.9 L (1.0-4.8) th/mm3 Random Glucose 116 H (74-106) mg/dL Total Bilirubin 3.1 H (0.2-1.0) mg/dL AST 309 H (15-37) U/L ALT 612 H (10-53) U/L Alkaline Phosphatase 210 H (45-117) U/L Troponin I Less than 0.02 L (0.02-0.05) ng/mL Total Protein 8.3 H D (6.4-8.2) g/dL Urine Clarity Hazy H (Clear) Urine Bilirubin Moderate H (Negative) Urine Ictotest Positive H (Negative) Urine Urobilinogen 2.0 H (Less than 2) mg/dL Ur Leukocyte Esterase Trace H (Negative) Urine WBC 10 H (0-5) /hpf Urine Mucus Many H (Occasional) /lpf Short CBC 08/07/18 Range/Units 11:45 WBC 3.8 L (4.0-11.0) th/mm3 Hgb 13.3 (11.6-15.3) gm/dL Hct 39.7 (35.0-46.0) % Plt Count 231 D (150-450) th/mm3 BMP 08/07/18 11:45 Sodium 138 Potassium 3.7 D Chloride 106 Carbon Dioxide 25.6 BUN 9 Creatinine 0.79 Calcium 8.8 Cardiac Enzymes 08/07/18 Range/Units 11:45 Total Creatine Kinase 79 (26-192) U/L Troponin I Less than 0.02 L (0.02-0.05) ng/mL Liver Function 08/07/18 Range/Units 11:45 Total Bilirubin 3.1 H (0.2-1.0) mg/dL AST 309 H (15-37) U/L ALT 612 H (10-53) U/L Alkaline Phosphatase 210 H (45-117) U/L Albumin 4.0 (3.4-5.0) g/dL Urine 08/07/18 Range/Units 12:00 Urine Color Elsy (Yellw/Straw) Urine Clarity Hazy H (Clear) Urine pH 5.0 (5.0-8.5) Ur Specific [place] 1.021 (1.002-1.035) Urine Protein Negative (Neg-Trace) mg/dL Urine Glucose (UA) Negative (Negative) mg/dL <Jesus Hong - 08/07/18 19:57> Abnormal lab results 08/07/18 08/07/18 08/07/18 Range/Units 11:45 11:45 12:00 WBC 3.8 L (4.0-11.0) th/mm3 [place] % (Auto) 9.9 H (0.0-8.0) % Lymph # (Auto) 0.9 L (1.0-4.8) th/mm3 Random Glucose 116 H (74-106) mg/dL Total Bilirubin 3.1 H (0.2-1.0) mg/dL AST 309 H (15-37) U/L ALT 612 H (10-53) U/L Alkaline Phosphatase 210 H (45-117) U/L Troponin I Less than 0.02 L (0.02-0.05) ng/mL Total Protein 8.3 H D (6.4-8.2) g/dL Urine Clarity Hazy H (Clear) Urine Bilirubin Moderate H (Negative) Urine Ictotest Positive H (Negative) Urine Urobilinogen 2.0 H (Less than 2) mg/dL Ur Leukocyte Esterase Trace H (Negative) Urine WBC 10 H (0-5) /hpf Urine Mucus Many H (Occasional) /lpf Short CBC 08/07/18 Range/Units 11:45 WBC 3.8 L (4.0-11.0) th/mm3 Hgb 13.3 (11.6-15.3) gm/dL Hct 39.7 (35.0-46.0) % Plt Count 231 D (150-450) th/mm3 BMP 08/07/18 11:45 Sodium 138 Potassium 3.7 D Chloride 106 Carbon Dioxide 25.6 BUN 9 Creatinine 0.79 Calcium 8.8 Cardiac Enzymes 08/07/18 Range/Units 11:45 Total Creatine Kinase 79 (26-192) U/L Troponin I Less than 0.02 L (0.02-0.05) ng/mL Liver Function 08/07/18 Range/Units 11:45 Total Bilirubin 3.1 H (0.2-1.0) mg/dL AST 309 H (15-37) U/L ALT 612 H (10-53) U/L Alkaline Phosphatase 210 H (45-117) U/L Albumin 4.0 (3.4-5.0) g/dL Urine 08/07/18 Range/Units 12:00 Urine Color Elsy (Yellw/Straw) Urine Clarity Hazy H (Clear) Urine pH 5.0 (5.0-8.5) Ur Specific [place] 1.021 (1.002-1.035) Urine Protein Negative (Neg-Trace) mg/dL Urine Glucose (UA) Negative (Negative) mg/dL <Gi Millard - 08/07/18 16:17> - Imaging Impressions Abdomen/Pelvis CT 08/07/18 11:46 CONCLUSION: 1. No acute findings. Previous cholecystectomy with mild intrahepatic biliary ductal dilatation. Mild constipation. Cholangiopancreatography MRI 08/07/18 15:48 CONCLUSION: 1. Post cholecystectomy with commonly seen mild biliary ductal dilatation. Normal pancreatic duct. No evidence for choledocholithiasis. No acute findings. <Jesus Hong - 08/07/18 19:57> Impressions Abdomen/Pelvis CT 08/07/18 11:46 CONCLUSION: 1. No acute findings. Previous cholecystectomy with mild intrahepatic biliary ductal dilatation. Mild constipation. <Gi Millard - 08/07/18 16:17> Caprini VTE Risk Assessment Caprini VTE Risk Assessment: No/Low Risk (score <= 1) <Gi Millard - 23:16> Caprini Risk Assessment Model: Point Value = 1 Point Value = 2 Point Value = 3 Point Value = 5 Age 41-60 Minor surgery BMI > 25 kg/m2 Swollen legs Varicose veins or History of unexplained or recurrent spontaneous Oral contraceptives or hormone replacement Sepsis (< 1 month) Serious lung disease, including pneumonia (< 1 month) Abnormal pulmonary function Acute myocardial infarction Congestive heart failure (< 1 month) History of inflammatory bowel disease Medical patient at bed rest Age 61-74 Arthroscopic surgery Major open surgery (> 45 min) Laparoscopic surgery (> 45 min) Malignancy Confined to bed (> 72 hours) Immobilizing plaster cast Central venous access Age >= 75 History of VTE Family history of VTE Factor V Leiden Prothrombin [id number] Lupus anticoagulant Anticardiolipin antibodies Elevated serum homocysteine Heparin-induced thrombocytopenia Other congenital or acquired thrombophilia Stroke (< 1 month) Elective arthroplasty Hip, pelvis, or leg fracture Acute spinal cord injury (< 1 month) <Jesus Hong - 08/07/18 19:57> Point Value = 1 Point Value = 2 Point Value = 3 Point Value = 5 Age 41-60 Minor surgery BMI > 25 kg/m2 Swollen legs Varicose veins or History of unexplained or recurrent spontaneous Oral contraceptives or hormone replacement Sepsis (< 1 month) Serious lung disease, including pneumonia (< 1 month) Abnormal pulmonary function Acute myocardial infarction Congestive heart failure (< 1 month) History of inflammatory bowel disease Medical patient at bed rest Age 61-74 Arthroscopic surgery Major open surgery (> 45 min) Laparoscopic surgery (> 45 min) Malignancy Confined to bed (> 72 hours) Immobilizing plaster cast Central venous access Age >= 75 History of VTE Family history of VTE Factor V Leiden Prothrombin [id number] Lupus anticoagulant Anticardiolipin antibodies Elevated serum homocysteine Heparin-induced thrombocytopenia Other congenital or acquired thrombophilia Stroke (< 1 month) Elective arthroplasty Hip, pelvis, or leg fracture Acute spinal cord injury (< 1 month) <Gi Millard - 08/07/18 16:17> Prophylaxis Regimen: Total Risk Factor Score Risk Level Prophylaxis Regimen 0-1 Low Early ambulation 2 Moderate Order ONE of the following: *Sequential Compression Device (SCD) *Heparin 5000 units SQ BID 3-4 Higher Order ONE of the following medications: *Heparin 5000 units SQ TID *Enoxaparin/Lovenox 40 mg SQ daily (WT < 150 kg, CrCl > 30 mL/min) *Enoxaparin/Lovenox 30 mg SQ daily (WT < 150 kg, CrCl > 10-29 mL/min) *Enoxaparin/Lovenox 30 mg SQ BID (WT < 150 kg, CrCl > 30 mL/min) AND/OR *Sequential Compression Device (SCD) 5 or more Highest Order ONE of the following medications: *Heparin 5000 units SQ TID (Preferred with Epidurals) *Enoxaparin/Lovenox 40 mg SQ daily (WT < 150 kg, CrCl > 30 mL/min) *Enoxaparin/Lovenox 30 mg SQ daily (WT < 150 kg, CrCl > 10-29 mL/min) *Enoxaparin/Lovenox 30 mg SQ BID (WT < 150 kg, CrCl > 30 mL/min) AND *Sequential Compression Device (SCD) <Jesus Hong - 08/07/18 19:57> Total Risk Factor Score Risk Level Prophylaxis Regimen 0-1 Low Early ambulation 2 Moderate Order ONE of the following: *Sequential Compression Device (SCD) *Heparin 5000 units SQ BID 3-4 Higher Order ONE of the following medications: *Heparin 5000 units SQ TID *Enoxaparin/Lovenox 40 mg SQ daily (WT < 150 kg, CrCl > 30 mL/min) *Enoxaparin/Lovenox 30 mg SQ daily (WT < 150 kg, CrCl > 10-29 mL/min) *Enoxaparin/Lovenox 30 mg SQ BID (WT < 150 kg, CrCl > 30 mL/min) AND/OR *Sequential Compression Device (SCD) 5 or more Highest Order ONE of the following medications: *Heparin 5000 units SQ TID (Preferred with Epidurals) *Enoxaparin/Lovenox 40 mg SQ daily (WT < 150 kg, CrCl > 30 mL/min) *Enoxaparin/Lovenox 30 mg SQ daily (WT < 150 kg, CrCl > 10-29 mL/min) *Enoxaparin/Lovenox 30 mg SQ BID (WT < 150 kg, CrCl > 30 mL/min) AND *Sequential Compression Device (SCD) <Macol AlexiaGi - 08/07/18 16:17> Assessment and Plan - Assessment (1) Abdominal pain Code(s): R10.9 - Unspecified abdominal pain Status: Acute Plan: Patient with epigastric pain. Gastric ulcer versus biliary/hepatic duct stone versus infectious versus autoimmune etiology. WBC 3.8. Afebrile. Vitals wnl and stable. Liver enzymes and bilirubin abnormal. Lipase wnl. Tumor AFP wnl. Hepatitis panel nonreactive. SHERIE pending. CT abdomen/pelvis: No acute findings. Previous cholecystectomy with mild intrahepatic biliary ductal dilatation. Mild constipation. MRCP: Post cholecystectomy with commonly seen mild biliary ductal dilatation. Normal pancreatic duct. No evidence for choledocholithiasis. No acute findings. IV hydration as below. Protonix 40mg PO daily. Miralax 17gm PO daily. GI consulted; appreciate recommendations. * Possible EGD Wednesday. (2) Abnormal liver enzymes Code(s): R74.8 - Abnormal levels of other serum enzymes Status: Acute Plan: Labs on admission (08/07/18): AST 309 ALT 612 Alk Phos 210 Tumor Marker AFP wnl. Hepatitis panel nonreactive. See Plan above. (3) Elevated bilirubin Code(s): R17 - Unspecified jaundice Status: Acute Plan: Total bilirubin 3.1 on admission (08/07/18). Total bilirubin 1.1 two days prior (08/05/18). UA with moderate bilirubin. See Plan above. (4) Nutrition, metabolism, and development symptoms Code(s): R63.8 - Other symptoms and signs concerning food and fluid intake Status: Acute Plan: Fluid: NS at 125 ml/hr. Diet: Clear liquid diet. Electrolytes: Monitor and replete as necessary. <Gi Millard - 08/07/18 23:16> - Assessment and Plan Dr. Baum, ED physician. <Gi Millard - 08/07/18 23:16> - Attending Attestation The exam, history, and the medical decision-making described in the above note were completed with the assistance of the resident physician. I reviewed and agree with the findings presented. I attest that I had a [id number] encounter with the patient on the same day, and personally performed and documented my assessment and findings in the medical record. reviewed Dr Mukherjee's histories and agree. exam remarkable only for epigastric tenderness > RUQ tenderness. GI consulted already MRCP pending EGD if negative cont PPI, started transaminitis work up as well. <Jesus Hong - 08/07/18 19:59> <Labell R2,Gi - Last Filed: 08/07/18 23:16> (1) Abdominal pain Qualifiers: Abdominal location: epigastric Qualified Code(s): R10.13 - Epigastric pain <Labell R2,Gi - Last Filed: 08/07/18 23:16> (1) Abdominal pain Qualifiers: Abdominal location: epigastric Qualified Code(s): R10.13 - Epigastric pain
[2018-08-07] MEDS ORDERED: Acetaminophen 325 MG Tablet PO PRN (16:24)
--- NOTE | 2018-08-07 16:43 | P.CONGI ---
History of Present Illness Consult date: 08/07/18 Consult reason: Transaminitis and hyperbilirubinemia, epigastric and gastric abdominal pain Chief complaint: Chest Pain History of Present Illness: This is a 22-year-old obese female who came into the hospital for further evaluation on 08/07/2018 for uncontrolled epigastric and gastric discomfort. Patient was seen in the ER approximately 2 days ago with right upper quadrant discomfort as well as uncontrolled epigastric pain. Pain initiated approximately 4 days before this admission acute onset associated with dyspepsia but no dysphasia. Patient denies any hematemesis or coffee-ground emesis and no diarrhea and no rectal bleed. Patient does note increased stressors secondary to work, college, and has noted dark orange urine as well as constipation over the past week. Patient is positive for social alcohol consumption 2-4 times a month as well as history of previous cholecystectomy 1 year ago uneventful until this point. Right upper quadrant is mild pressure to light palpation no other abdominal pain noted labs reviewed which show hemoglobin 13.3, WBC count 3.8, lipase 137, bilirubin 3.1, AST 309 elevated and ALT 612 elevated, alkaline phosphatase 210. Noted liver ultrasound on 215 showed no mass no stone and common bile duct [address] scan performed on 2018 shows previous cholecystectomy noted with mild intrahepatic biliary ductal dilatation, mild constipation otherwise no acute findings and no bowel obstruction no adenopathy. Gastroenterology was consulted to assist in her care transaminitis, hyperbilirubinemia causes as well as epigastric and gastric discomfort 10 out of 10 at time rule out inflammation versus ulcer disease <Katarzyna Gloria - Last Filed: 08/07/18 16:43> [facility] - History History Provided By: Patient - Medical History Medical History: Medical History (Last Reviewed 08/07/18 @ 11:56 by Zaki Baum MD) Patient denies medical problems - Surgical History Surgical History: Surgical History (Last Reviewed 08/07/18 @ 11:56 by Zaki Baum MD) Hx of cholecystectomy - Tobacco History Second Hand Smoke Exposure: No Smoking Status: Never smoker - Alcohol History How Often Do You Have a Drink Containing Alcohol: 2 to 4 times a month - Substance Use History Substance History: No History of Abuse - Immunization History Tetanus Immunization: Unsure <Katarzyna Gloria - Last Filed: 08/07/18 16:43> - Medical History Medical History: Medical History (Last Reviewed 08/07/18 @ 11:56 by Zaki Baum MD) Patient denies medical problems - Surgical History Surgical History: Surgical History (Last Reviewed 08/07/18 @ 11:56 by Zaki Baum MD) Hx of cholecystectomy <Briana Gomes - Last Filed: 08/07/18 18:28> Medications and Allergies Active Medications: Active Medications Acetaminophen (Tylenol) 650 mg PO Q4H PRN PRN Reason: Temp > 100.4 Sodium Chloride (Ns Inj) 1,000 mls @ 125 mls/hr IV.CONT .Q8H KOMAL Stop: 08/07/18 19:59 Last Admin: 08/07/18 12:29 Dose: 125 mls/hr Ondansetron HCl (Zofran Inj) 4 mg IV.PUSH Q6H PRN PRN Reason: NAUSEA OR VOMITING Polyethylene Glycol (Miralax) 17 gm PO DAILY KOMAL Senna/Docusate Sodium (Tish-Colace) 1 tab PO BID KOMAL Sodium Chloride (Ns Flush) 2 ml IV.FLUSH BID KOMAL Sodium Chloride (Ns Flush) 2 ml IV.FLUSH PRN PRN PRN Reason: FLUSH AFTER USING IV ACCESS <Katarzyna Gloria Nitish - Last Filed: 08/07/18 16:43> Active Medications: Active Medications Acetaminophen (Tylenol) 650 mg PO Q4H PRN PRN Reason: Temp > 100.4 Sodium Chloride (Ns Inj) 1,000 mls @ 125 mls/hr IV.CONT .Q8H KOMAL Stop: 08/07/18 19:59 Last Admin: 08/07/18 12:29 Dose: 125 mls/hr Ondansetron HCl (Zofran Inj) 4 mg IV.PUSH Q6H PRN PRN Reason: NAUSEA OR VOMITING Polyethylene Glycol (Miralax) 17 gm PO DAILY KOMAL Senna/Docusate Sodium (Tish-Colace) 1 tab PO BID KOMAL Sodium Chloride (Ns Flush) 2 ml IV.FLUSH BID KOMAL Sodium Chloride (Ns Flush) 2 ml IV.FLUSH PRN PRN PRN Reason: FLUSH AFTER USING IV ACCESS <Briana Gomes - Last Filed: 08/07/18 18:28> Allergies Allergy/AdvReac Type Severity Reaction Status Date / Time No Known Allergies Allergy Verified 02/15/19 15:51 Exam Vital signs: Vital Signs 08/07/18 11:32 08/07/18 11:34 08/07/18 11:46 Temperature 98 F Pulse Rate 92 H 92 H Respiratory Rate 24 18 Blood Pressure 156/64 H 143/87 H Pulse Oximetry 98 100 98 08/07/18 15:34 Temperature Pulse Rate 77 Respiratory Rate 20 Blood Pressure 137/92 H Pulse Oximetry 100 Intake & Output 08/06/18 08/07/18 08/07/18 18:59 06:59 18:59 Weight 88.451 kg <Katarzyna Gloria - Last Filed: 08/07/18 16:43> Vital signs: Vital Signs 08/07/18 11:32 08/07/18 11:34 08/07/18 11:46 Temperature 98 F Pulse Rate 92 H 92 H Respiratory Rate 24 18 Blood Pressure 156/64 H 143/87 H Pulse Oximetry 98 100 98 08/07/18 15:34 08/07/18 16:24 08/07/18 17:22 Temperature Pulse Rate 77 82 Respiratory Rate 20 18 Blood Pressure 137/92 H 126/87 Pulse Oximetry 100 99 Intake & Output 08/06/18 08/07/18 08/07/18 18:59 06:59 18:59 Weight 88.451 kg <Briana Gomes - Last Filed: 08/07/18 18:28> Results - Labs CBC & Chem 7: 08/07/18 11:45 08/07/18 11:45 Labs: Laboratory Results - last 24 hr 08/07/18 08/07/18 08/07/18 11:45 11:45 11:45 WBC 3.8 L RBC 4.34 Hgb 13.3 Hct 39.7 MCV 91.6 MCH 30.7 MCHC 33.6 RDW 13.1 Plt Count 231 D MPV 8.9 Neut % (Auto) 62.7 Lymph % (Auto) 23.9 [place] % (Auto) 9.9 H Eos % (Auto) 2.2 Baso % (Auto) 1.3 Neut # (Auto) 2.4 Lymph # (Auto) 0.9 L [place] # (Auto) 0.4 Eos # (Auto) 0.1 Baso # (Auto) 0.1 WBC Differential . Differential Comment Auto diff final PT 10.3 INR 1.0 APTT 31.2 Sodium 138 Potassium 3.7 D Chloride 106 Carbon Dioxide 25.6 Anion Gap 6 BUN 9 Creatinine 0.79 Estimated GFR Greater than 89 Random Glucose 116 H Calcium 8.8 Total Bilirubin 3.1 H AST 309 H ALT 612 H Alkaline Phosphatase 210 H Total Creatine Kinase 79 Troponin I Less than 0.02 L Total Protein 8.3 H D Albumin 4.0 Lipase 137 Urine Color Urine Clarity Urine pH Ur Specific [place] Urine Protein Urine Glucose (UA) Urine Ketones Urine Occult Blood Urine Nitrate Urine Bilirubin Urine Ictotest Urine Urobilinogen Ur Leukocyte Esterase Urine RBC Urine WBC Ur Squamous Epith Cells Urine Mucus Micro UA Comment Ur Microscopic Review Urine Culture Comments 08/07/18 12:00 WBC RBC Hgb Hct MCV MCH MCHC RDW Plt Count MPV Neut % (Auto) Lymph % (Auto) [place] % (Auto) Eos % (Auto) Baso % (Auto) Neut # (Auto) Lymph # (Auto) [place] # (Auto) Eos # (Auto) Baso # (Auto) WBC Differential Differential Comment PT INR APTT Sodium Potassium Chloride Carbon Dioxide Anion Gap BUN Creatinine Estimated GFR Random Glucose Calcium Total Bilirubin AST ALT Alkaline Phosphatase Total Creatine Kinase Troponin I Total Protein Albumin Lipase Urine Color Elsy Urine Clarity Hazy H Urine pH 5.0 Ur Specific [place] 1.021 Urine Protein Negative Urine Glucose (UA) Negative Urine Ketones Negative Urine Occult Blood Negative Urine Nitrate Negative Urine Bilirubin Moderate H Urine Ictotest Positive H Urine Urobilinogen 2.0 H Ur Leukocyte Esterase Trace H Urine RBC 1 Urine WBC 10 H Ur Squamous Epith Cells 20 Urine Mucus Many H Micro UA Comment Culture indicated Ur Microscopic Review Not Reportable Urine Culture Comments Culture indicated - Imaging Impressions Abdomen/Pelvis CT 08/07/18 11:46 CONCLUSION: 1. No acute findings. Previous cholecystectomy with mild intrahepatic biliary ductal dilatation. Mild constipation. <Katarzyna Gloria - Last Filed: 08/07/18 16:43> - Labs CBC & Chem 7: 08/07/18 11:45 08/07/18 11:45 Labs: Laboratory Results - last 24 hr 08/07/18 08/07/18 08/07/18 11:45 11:45 11:45 WBC 3.8 L RBC 4.34 Hgb 13.3 Hct 39.7 MCV 91.6 MCH 30.7 MCHC 33.6 RDW 13.1 Plt Count 231 D MPV 8.9 Neut % (Auto) 62.7 Lymph % (Auto) 23.9 [place] % (Auto) 9.9 H Eos % (Auto) 2.2 Baso % (Auto) 1.3 Neut # (Auto) 2.4 Lymph # (Auto) 0.9 L [place] # (Auto) 0.4 Eos # (Auto) 0.1 Baso # (Auto) 0.1 WBC Differential . Differential Comment Auto diff final PT 10.3 INR 1.0 APTT 31.2 Sodium 138 Potassium 3.7 D Chloride 106 Carbon Dioxide 25.6 Anion Gap 6 BUN 9 Creatinine 0.79 Estimated GFR Greater than 89 Random Glucose 116 H Calcium 8.8 Total Bilirubin 3.1 H AST 309 H ALT 612 H Alkaline Phosphatase 210 H Total Creatine Kinase 79 Troponin I Less than 0.02 L Total Protein 8.3 H D Albumin 4.0 Lipase 137 Urine Color Urine Clarity Urine pH Ur Specific [place] Urine Protein Urine Glucose (UA) Urine Ketones Urine Occult Blood Urine Nitrate Urine Bilirubin Urine Ictotest Urine Urobilinogen Ur Leukocyte Esterase Urine RBC Urine WBC Ur Squamous Epith Cells Urine Mucus Micro UA Comment Ur Microscopic Review Urine Culture Comments 08/07/18 12:00 WBC RBC Hgb Hct MCV MCH MCHC RDW Plt Count MPV Neut % (Auto) Lymph % (Auto) [place] % (Auto) Eos % (Auto) Baso % (Auto) Neut # (Auto) Lymph # (Auto) [place] # (Auto) Eos # (Auto) Baso # (Auto) WBC Differential Differential Comment PT INR APTT Sodium Potassium Chloride Carbon Dioxide Anion Gap BUN Creatinine Estimated GFR Random Glucose Calcium Total Bilirubin AST ALT Alkaline Phosphatase Total Creatine Kinase Troponin I Total Protein Albumin Lipase Urine Color Elsy Urine Clarity Hazy H Urine pH 5.0 Ur Specific [place] 1.021 Urine Protein Negative Urine Glucose (UA) Negative Urine Ketones Negative Urine Occult Blood Negative Urine Nitrate Negative Urine Bilirubin Moderate H Urine Ictotest Positive H Urine Urobilinogen 2.0 H Ur Leukocyte Esterase Trace H Urine RBC 1 Urine WBC 10 H Ur Squamous Epith Cells 20 Urine Mucus Many H Micro UA Comment Culture indicated Ur Microscopic Review Not Reportable Urine Culture Comments Culture indicated - Imaging Impressions Abdomen/Pelvis CT 08/07/18 11:46 CONCLUSION: 1. No acute findings. Previous cholecystectomy with mild intrahepatic biliary ductal dilatation. Mild constipation. Cholangiopancreatography MRI 08/07/18 15:48 CONCLUSION: 1. Post cholecystectomy with commonly seen mild biliary ductal dilatation. Normal pancreatic duct. No evidence for choledocholithiasis. No acute findings. <Briana Gomes - Last Filed: 08/07/18 18:28> Assessment and Plan - Plan uncontrolled epigastric and gastric discomfort. Patient was seen in the ER approximately 2 days ago with right upper quadrant discomfort as well as uncontrolled epigastric pain. Pain initiated approximately 4 days before this admission acute onset associated with dyspepsia but no dysphasia. Patient denies any hematemesis or coffee-ground emesis and no diarrhea and no rectal bleed. Patient does note increased stressors secondary to work, college, and has noted dark orange urine as well as constipation over the past week. Patient is positive for social alcohol consumption 2-4 times a month as well as history of previous cholecystectomy 1 year ago uneventful until this point. Right upper quadrant is mild pressure to light palpation no other abdominal pain noted labs reviewed which show hemoglobin 13.3, WBC count 3.8, lipase 137, bilirubin 3.1, AST 309 elevated and ALT 612 elevated, alkaline phosphatase 210. Noted liver ultrasound on 215 showed no mass no stone and common bile duct [address] scan performed on 08/07/2018 shows previous cholecystectomy noted with mild intrahepatic biliary ductal dilatation, mild constipation otherwise no acute findings and no bowel obstruction no adenopathy. Gastroenterology was consulted to assist in her care transaminitis, hyperbilirubinemia causes as well as epigastric and gastric discomfort 10 out of 10 at time rule out inflammation versus ulcer disease Patient has had no previous EGD or colonoscopy and no family history of colon cancer or GI disease Dyspepsia uncontrolled, patient does note if she eats spicy foods and late at night due to her schedule. Patient states she is awakened at 1:59 AM with dyspepsia and it is worse in the evening time and after eating. She denies any ibuprofen or Aleve use . Stressors related to college, and work. Erratic eating schedule Hyperbilirubinemia, rule out hepatocellular disease Transaminitis unspecified rule out autoimmune versus obstruction versus infection or inflammation./Stones Social alcohol use, does not appear to be a heavy alcohol consumer History of cholecystectomy Obesity Plan Diet clear liquids for now MRCP pending Further recommendations to follow once MRCP is performed, may need to consider EGD Wednesday or EGD with ERCP pending results 08/09/2018 Add Protonix 40 mg daily MiraLAX daily for bowel regimen until patient constipation is alleviated Recommend IV fluids for hydration for now Alpha-fetoprotein SHERIE level Hepatitis profile Monitor labs with special attention to bilirubin and LFTs, recheck in a.m. Supportive care Further recommendations to follow Patient was seen per myself and Dr. Gomes, note was written on his behalf <Katarzyna Gloria - Last Filed: 08/07/18 16:43> - Plan Seen and examined with [facility], records reviewed. MRCP ordered, if -ve consider egd /ercp. Dr Campbell will follow. Thank you <Briana Gomes - Last Filed: 08/07/18 18:28>
--- NOTE | 2018-08-07 18:01 | MR ---
EXAM DATE: 08/07/2018 5:40 PM EST AGE/SEX: 22 years / Female INDICATIONS: Abdominal pain. CLINICAL DATA: This is the patient's initial encounter. Patient reports that signs and symptoms have been present for 1 day and indicates a pain score of 4/10. MEDICAL/SURGICAL HISTORY: None. Cholecystectomy. COMPARISON: [facility] [place], CT ABDOMEN & PELVIS W CONTRAST, 08/07/2018. . TECHNIQUE: Multiplanar, multisequence images of the abdomen were obtained without contrast including dedicated cholangiographic images. FINDINGS: There is previous cholecystectomy with mild biliary ductal dilatation up to about 8 mm. Also minimal intrahepatic biliary ductal dilatation which can be seen post cholecystectomy. Pancreatic duct has no rmal caliber. Mild fatty liver. Spleen, adrenals, kidneys and pancreas unremarkable. No free fluid. Normal caliber bowel. CONCLUSION: 1. Post cholecystectomy with commonly seen mild biliary ductal dilatation. Normal pancreatic duct. N o evidence for choledocholithiasis. No acute findings. Electronically signed by: Kishor Jules MD Board Certified Radiologist 08/07/2018 6:00 PM EST
[2018-08-07] MEDS: Senna/Docusate Sodium 8.6/50 MG Tablet PO SCH (20:48)
[2018-08-07 21:22] LABS: Hepatitits B Surface Antigen Nonreactive (Nonreactive)
[2018-08-07 21:55] LABS: Hepatitis A IgM Antibody Nonreactive (Nonreactive)
[2018-08-08] MEDS: Sod Chloride 0.9% Inj 1,000 ML IV.CONT SCH ×4 (04:42→23:04)
[2018-08-08 08:08] LABS: Hematocrit 33.8 % (35.0-46.0); Hemoglobin 11.5 gm/dL (11.6-15.3); Mean Corpuscular Hemoglobin 30.5 pg (27.0-34.0); Mean Corpuscular Volume 89.8 fL (80.0-100.0); Mean Platelet Volume 8.2 fL (7.0-11.0); Platelet Count 205 th/mm3 (150-450); Red Blood Count 3.77 mil/mm3 (4.00-5.30); Red Cell Distribution Width 12.8 % (11.6-17.2)
[2018-08-08] MEDS: Polyethylene Glycol 3350 17 GM Packet PO SCH (08:12)
[2018-08-08] MEDS: Senna/Docusate Sodium 8.6/50 MG Tablet PO SCH ×2 (08:12→20:13)
[2018-08-08 08:28] LABS: Alanine Aminotransferase 356 U/L (10-53); Albumin 3.3 g/dL (3.4-5.0); Anion Gap 7 meq/L (5-15); Aspartate Aminotransferase 124 U/L (15-37); Blood Urea Nitrogen 6 mg/dL (7-18); Calcium 8.4 mg/dL (8.5-10.1); Carbon Dioxide 25.5 meq/L (21.0-32.0); Chloride 108 meq/L (98-107); Glomerular Filtration Rate Greater Than 89 mL/min (>89); Glucose,Random 87 mg/dL (74-106); Potassium 3.7 meq/L (3.5-5.1); Sodium 140 meq/L (136-145)
[2018-08-08 08:29] LABS: Alkaline Phosphatase 174 U/L (45-117); Total Protein 6.7 g/dL (6.4-8.2)
--- NOTE | 2018-08-08 10:13 | P.PNGI ---
Subjective Interval history: Awake and alert Sitting up in bed Completed clear liquid diet Reports generalized abdominal tenderness Denies hematemesis or any noted bleeding, denies nausea Physical Exam Vital signs: Vital Signs 08/07/18 11:32 08/07/18 11:34 08/07/18 11:46 Temperature 98 F Pulse Rate 92 H 92 H Respiratory Rate 24 18 Blood Pressure 156/64 H 143/87 H Pulse Oximetry 98 100 98 08/07/18 15:34 08/07/18 16:24 08/07/18 17:22 Temperature Pulse Rate 77 82 Respiratory Rate 20 18 Blood Pressure 137/92 H 126/87 Pulse Oximetry 100 99 08/07/18 18:42 08/07/18 19:34 08/07/18 23:28 Temperature 97.7 F 98.4 F Pulse Rate 78 82 72 Respiratory Rate 18 16 16 Blood Pressure 126/79 127/74 121/80 Pulse Oximetry 99 99 99 08/08/18 03:36 08/08/18 07:53 08/08/18 08:00 Temperature 98.8 F 98.5 F Pulse Rate 95 H 88 Respiratory Rate 12 16 Blood Pressure 102/53 L 124/73 Pulse Oximetry 96 100 100 Intake & Output 08/07/18 08/08/18 08/08/18 18:59 06:59 18:59 Intake Total 1000 / 1000 1000 / 1000 Balance 1000 / 1000 1000 / 1000 Weight 88.451 kg Intake: IV 1000 / 1000 1000 / 1000 NS Inj 1,000 ML @ 125 mls/hr IV 1000 / 1000 1000 / 1000 .CONT .Q8H [facility] Rx#:[id number] Other: Weight On Admission 88.451 kg - Constitutional no acute distress, cooperative - Routine HEENT Exam Head: Present: normocephalic ENT: Present: mucous membranes moist - Routine Neck Exam Present: supple - Routine Respiratory Exam Present: CTA bilaterally. Absent: accessory muscle use - Routine Cardiovascular Exam Present: RRR, S1 - Routine Abdominal Exam Present: soft, normoactive bowel sounds, tenderness. Absent: distended, guarding, firm - Routine Extremities Exam Absent: edema - Routine Skin Exam Present: dry, warm - Routine Neurological Exam Present: alert, oriented X3 Results - Labs CBC & Chem 7: 08/08/18 07:57 08/08/18 07:57 Laboratory Results - last 24 hr 08/07/18 08/07/1819 11:45 11:45 11:45 WBC 3.8 L RBC 4.34 Hgb 13.3 Hct 39.7 MCV 91.6 MCH 30.7 MCHC 33.6 RDW 13.1 Plt Count 231 D MPV 8.9 Neut % (Auto) 62.7 Lymph % (Auto) 23.9 [place] % (Auto) 9.9 H Eos % (Auto) 2.2 Baso % (Auto) 1.3 Neut # (Auto) 2.4 Lymph # (Auto) 0.9 L [place] # (Auto) 0.4 Eos # (Auto) 0.1 Baso # (Auto) 0.1 WBC Differential . Differential Comment Auto diff final PT 10.3 INR 1.0 APTT 31.2 Sodium 138 Potassium 3.7 D Chloride 106 Carbon Dioxide 25.6 Anion Gap 6 BUN 9 Creatinine 0.79 Estimated GFR Greater than 89 Random Glucose 116 H Calcium 8.8 Total Bilirubin 3.1 H AST 309 H ALT 612 H Alkaline Phosphatase 210 H Total Creatine Kinase 79 Troponin I Less than 0.02 L Total Protein 8.3 H D Albumin 4.0 Lipase 137 Tumor Marker AFP Urine Color Urine Clarity Urine pH Ur Specific [place] Urine Protein Urine Glucose (UA) Urine Ketones Urine Occult Blood Urine Nitrate Urine Bilirubin Urine Ictotest Urine Urobilinogen Ur Leukocyte Esterase Urine RBC Urine WBC Ur Squamous Epith Cells Urine Mucus Micro UA Comment Ur Microscopic Review Urine Culture Comments Hepatitis A IgM Ab Hep Bs Antigen Hep B Core IgM Ab Hep C IgG Ab 08/07/18 08/07/18 08/07/18 12:00 18:30 18:30 WBC RBC Hgb Hct MCV MCH MCHC RDW Plt Count MPV Neut % (Auto) Lymph % (Auto) [place] % (Auto) Eos % (Auto) Baso % (Auto) Neut # (Auto) Lymph # (Auto) [place] # (Auto) Eos # (Auto) Baso # (Auto) WBC Differential Differential Comment PT INR APTT Sodium Potassium Chloride Carbon Dioxide Anion Gap BUN Creatinine Estimated GFR Random Glucose Calcium Total Bilirubin AST ALT Alkaline Phosphatase Total Creatine Kinase Troponin I Total Protein Albumin Lipase Tumor Marker AFP 6.6 Urine Color Elsy Urine Clarity Hazy H Urine pH 5.0 Ur Specific [place] 1.021 Urine Protein Negative Urine Glucose (UA) Negative Urine Ketones Negative Urine Occult Blood Negative Urine Nitrate Negative Urine Bilirubin Moderate H Urine Ictotest Positive H Urine Urobilinogen 2.0 H Ur Leukocyte Esterase Trace H Urine RBC 1 Urine WBC 10 H Ur Squamous Epith Cells 20 Urine Mucus Many H Micro UA Comment Culture indicated Ur Microscopic Review Not Reportable Urine Culture Comments Culture indicated Hepatitis A IgM Ab Nonreactive Hep Bs Antigen Nonreactive Hep B Core IgM Ab Nonreactive Hep C IgG Ab Nonreactive 08/08/18 08/08/18 07:57 07:57 WBC 4.0 RBC 3.77 L Hgb 11.5 L Hct 33.8 L MCV 89.8 MCH 30.5 MCHC 34.0 RDW 12.8 Plt Count 205 MPV 8.2 Neut % (Auto) Lymph % (Auto) [place] % (Auto) Eos % (Auto) Baso % (Auto) Neut # (Auto) Lymph # (Auto) [place] # (Auto) Eos # (Auto) Baso # (Auto) WBC Differential Differential Comment PT INR APTT Sodium 140 Potassium 3.7 Chloride 108 H Carbon Dioxide 25.5 Anion Gap 7 BUN 6 L Creatinine 0.64 Estimated GFR Greater than 89 Random Glucose 87 Calcium 8.4 L Total Bilirubin 4.2 H AST 124 H ALT 356 H Alkaline Phosphatase 174 H Total Creatine Kinase Troponin I Total Protein 6.7 D Albumin 3.3 L D Lipase Tumor Marker AFP Urine Color Urine Clarity Urine pH Ur Specific [place] Urine Protein Urine Glucose (UA) Urine Ketones Urine Occult Blood Urine Nitrate Urine Bilirubin Urine Ictotest Urine Urobilinogen Ur Leukocyte Esterase Urine RBC Urine WBC Ur Squamous Epith Cells Urine Mucus Micro UA Comment Ur Microscopic Review Urine Culture Comments Hepatitis A IgM Ab Hep Bs Antigen Hep B Core IgM Ab Hep C IgG Ab - Imaging Impressions Abdomen/Pelvis CT 08/07/18 11:46 CONCLUSION: 1. No acute findings. Previous cholecystectomy with mild intrahepatic biliary ductal dilatation. Mild constipation. Cholangiopancreatography MRI 08/07/18 15:48 CONCLUSION: 1. Post cholecystectomy with commonly seen mild biliary ductal dilatation. Normal pancreatic duct. No evidence for choledocholithiasis. No acute findings. Assessment and Plan - Plan Uncontrolled epigastric and gastric discomfort. Patient was seen in the ER approximately 2 days ago with right upper quadrant discomfort as well as uncontrolled epigastric pain. Pain initiated approximately 4 days before this admission acute onset associated with dyspepsia but no dysphasia. Patient denies any hematemesis or coffee-ground emesis and no diarrhea and no rectal bleed. Patient does note increased stressors secondary to work, college, and has noted dark orange urine as well as constipation over the past week. Patient is positive for social alcohol consumption 2-4 times a month as well as history of previous cholecystectomy 1 year ago uneventful until this point. Right upper quadrant is mild pressure to light palpation no other abdominal pain noted labs reviewed which show hemoglobin 13.3, WBC count 3.8, lipase 137, bilirubin 3.1, AST 309 elevated and ALT 612 elevated, alkaline phosphatase 210. Noted liver ultrasound on 215 showed no mass no stone and common bile duct [address] scan performed on 08/07/2018 shows previous cholecystectomy noted with mild intrahepatic biliary ductal dilatation, mild constipation otherwise no acute findings and no bowel obstruction no adenopathy. Gastroenterology was consulted to assist in her care transaminitis, hyperbilirubinemia causes as well as epigastric and gastric discomfort 10 out of 10 at time rule out inflammation versus ulcer disease Patient has had no previous EGD or colonoscopy and no family history of colon cancer or GI disease Dyspepsia uncontrolled, patient does note if she eats spicy foods and late at night due to her schedule. Patient states she is awakened at 1:59 AM with dyspepsia and it is worse in the evening time and after eating. She denies any ibuprofen or Aleve use . Stressors related to college, and work. Erratic eating schedule Hyperbilirubinemia, rule out hepatocellular disease Transaminitis unspecified rule out autoimmune versus obstruction versus infection or inflammation./Stones Social alcohol use, does not appear to be a heavy alcohol consumer History of cholecystectomy Obesity 08/08/2018 Transaminitis Dyspepsia Patient tolerating clear liquid diet without complaint of nausea or vomiting. Endorses generalized abdominal tenderness on palpation during exam -WBC 4.0 hemoglobin 11.5 hematocrit 33.8 -Total bilirubin 4.2 AST 124 ALT 356 alk phos 174 trending down-liver immunology pending -AFP 6.6 -SHERIE pending -Hepatitis panel nonreactive 08/07/2018 MRCP revealed the following : post cholecystectomy with commonly seen mild biliary ductal dilatation. Normal pancreatic duct. No evidence for choledocholithiasis. No acute findings. Plan -Clear liquid diet -N.p.o. after midnight -Obtain consent for EGD with ERCP -Monitor labs -Liver immunology pending -Bowel regimen -IV hydration -Analgesics and antiemetics as per attending -Continue PPI -Supportive care -Further recommendations to follow This patient was seen by myself and Dr. Campbell and this note is written on his behalf - Attending Attestation Dr. Campbell
--- NOTE | 2018-08-08 11:57 | P.PNFP ---
Subjective Interval history: 22-year-old female admitted for epigastric abdominal pain. Patient seen and examined this morning, who states she is feeling much better compared to yesterday. She notes improved epigastric abdominal pain and some mild nausea at present. She denies vomiting, dysuria, back pain, chest pain, shortness of breath, or leg pain. All questions answered. <Sonya Roa B - 08/08/18 11:57> Results - Labs Result diagrams: 08/08/18 07:57 08/08/18 07:57 <Jesus Hong - 08/08/18 16:34> Abnormal lab results 08/08/18 08/08/18 08/08/18 Range/Units 07:57 07:57 11:33 RBC 3.77 L (4.00-5.30) mil/mm3 Hgb 11.5 L (11.6-15.3) gm/dL Hct 33.8 L (35.0-46.0) % Chloride 108 H (98-107) meq/L BUN 6 L (7-18) mg/dL Calcium 8.4 L (8.5-10.1) mg/dL Iron 226 H (50-170) mcg/dL % Saturation 62.6 H (20-50) % Total Bilirubin 4.2 H (0.2-1.0) mg/dL AST 124 H (15-37) U/L ALT 356 H (10-53) U/L Alkaline Phosphatase 174 H (45-117) U/L Albumin 3.3 L D (3.4-5.0) g/dL Short CBC 08/08/18 Range/Units 07:57 WBC 4.0 (4.0-11.0) th/mm3 Hgb 11.5 L (11.6-15.3) gm/dL Hct 33.8 L (35.0-46.0) % Plt Count 205 (150-450) th/mm3 BMP 08/08/18 07:57 Sodium 140 Potassium 3.7 Chloride 108 H Carbon Dioxide 25.5 BUN 6 L Creatinine 0.64 Calcium 8.4 L Liver Function 08/08/18 Range/Units 07:57 Total Bilirubin 4.2 H (0.2-1.0) mg/dL AST 124 H (15-37) U/L ALT 356 H (10-53) U/L Alkaline Phosphatase 174 H (45-117) U/L Albumin 3.3 L D (3.4-5.0) g/dL <Jesus Hong K - 08/08/18 16:34> Abnormal lab results 08/07/18 08/07/18 08/07/18 Range/Units 11:45 11:45 12:00 WBC 3.8 L (4.0-11.0) th/mm3 RBC (4.00-5.30) mil/mm3 Hgb (11.6-15.3) gm/dL Hct (35.0-46.0) % [place] % (Auto) 9.9 H (0.0-8.0) % Lymph # (Auto) 0.9 L (1.0-4.8) th/mm3 Chloride (98-107) meq/L BUN (7-18) mg/dL Random Glucose 116 H (74-106) mg/dL Calcium (8.5-10.1) mg/dL Total Bilirubin 3.1 H (0.2-1.0) mg/dL AST 309 H (15-37) U/L ALT 612 H (10-53) U/L Alkaline Phosphatase 210 H (45-117) U/L Troponin I Less than 0.02 L (0.02-0.05) ng/mL Total Protein 8.3 H D (6.4-8.2) g/dL Albumin (3.4-5.0) g/dL Urine Clarity Hazy H (Clear) Urine Bilirubin Moderate H (Negative) Urine Ictotest Positive H (Negative) Urine Urobilinogen 2.0 H (Less than 2) mg/dL Ur Leukocyte Esterase Trace H (Negative) Urine WBC 10 H (0-5) /hpf Urine Mucus Many H (Occasional) /lpf 08/08/18 08/08/18 Range/Units 07:57 07:57 WBC (4.0-11.0) th/mm3 RBC 3.77 L (4.00-5.30) mil/mm3 Hgb 11.5 L (11.6-15.3) gm/dL Hct 33.8 L (35.0-46.0) % [place] % (Auto) (0.0-8.0) % Lymph # (Auto) (1.0-4.8) th/mm3 Chloride 108 H (98-107) meq/L BUN 6 L (7-18) mg/dL Random Glucose (74-106) mg/dL Calcium 8.4 L (8.5-10.1) mg/dL Total Bilirubin 4.2 H (0.2-1.0) mg/dL AST 124 H (15-37) U/L ALT 356 H (10-53) U/L Alkaline Phosphatase 174 H (45-117) U/L Troponin I (0.02-0.05) ng/mL Total Protein (6.4-8.2) g/dL Albumin 3.3 L D (3.4-5.0) g/dL Urine Clarity (Clear) Urine Bilirubin (Negative) Urine Ictotest (Negative) Urine Urobilinogen (Less than 2) mg/dL Ur Leukocyte Esterase (Negative) Urine WBC (0-5) /hpf Urine Mucus (Occasional) /lpf Short CBC 08/07/18 08/08/18 Range/Units 11:45 07:57 WBC 3.8 L 4.0 (4.0-11.0) th/mm3 Hgb 13.3 11.5 L (11.6-15.3) gm/dL Hct 39.7 33.8 L (35.0-46.0) % Plt Count 231 D 205 (150-450) th/mm3 BMP 08/07/18 08/08/18 11:45 07:57 Sodium 138 140 Potassium 3.7 D 3.7 Chloride 106 108 H Carbon Dioxide 25.6 25.5 BUN 9 6 L Creatinine 0.79 0.64 Calcium 8.8 8.4 L Cardiac Enzymes 08/07/18 Range/Units 11:45 Total Creatine Kinase 79 (26-192) U/L Troponin I Less than 0.02 L (0.02-0.05) ng/mL Liver Function 08/07/18 08/08/18 Range/Units 11:45 07:57 Total Bilirubin 3.1 H 4.2 H (0.2-1.0) mg/dL AST 309 H 124 H (15-37) U/L ALT 612 H 356 H (10-53) U/L Alkaline Phosphatase 210 H 174 H (45-117) U/L Albumin 4.0 3.3 L D (3.4-5.0) g/dL Urine 08/07/18 Range/Units 12:00 Urine Color Elsy (Yellw/Straw) Urine Clarity Hazy H (Clear) Urine pH 5.0 (5.0-8.5) Ur Specific [place] 1.021 (1.002-1.035) Urine Protein Negative (Neg-Trace) mg/dL Urine Glucose (UA) Negative (Negative) mg/dL <Sonya Roa - 08/08/18 11:57> - Imaging Impressions Cholangiopancreatography MRI 08/07/18 15:48 CONCLUSION: 1. Post cholecystectomy with commonly seen mild biliary ductal dilatation. Normal pancreatic duct. No evidence for choledocholithiasis. No acute findings. <Jesus Hong - 08/08/18 16:34> Impressions Abdomen/Pelvis CT 08/07/18 11:46 CONCLUSION: 1. No acute findings. Previous cholecystectomy with mild intrahepatic biliary ductal dilatation. Mild constipation. Cholangiopancreatography MRI 08/07/18 15:48 CONCLUSION: 1. Post cholecystectomy with commonly seen mild biliary ductal dilatation. Normal pancreatic duct. No evidence for choledocholithiasis. No acute findings. <Sonya Roa - 08/08/18 11:57> Physical Exam Vital signs: Vital Signs 08/07/18 17:22 08/07/18 18:42 08/07/18 19:34 Temperature 97.7 F Pulse Rate 78 82 Respiratory Rate 18 16 Blood Pressure 126/79 127/74 Pulse Oximetry 99 99 99 08/07/18 23:28 08/08/18 03:36 08/08/18 07:53 Temperature 98.4 F 98.8 F 98.5 F Pulse Rate 72 95 H 88 Respiratory Rate 16 12 16 Blood Pressure 121/80 102/53 L 124/73 Pulse Oximetry 99 96 100 08/08/18 08:00 08/08/18 12:00 08/08/18 16:00 Temperature 99.2 F 98.7 F Pulse Rate 82 66 Respiratory Rate 16 16 Blood Pressure 126/80 117/57 L Pulse Oximetry 100 99 99 Intake & Output 08/07/18 08/08/18 08/08/18 18:59 06:59 18:59 Intake Total 1000 / 999 Balance 1000 / 999 Weight 88.451 kg Intake: IV 1000 / 1000 1999 NS Inj 1,000 ML @ 125 mls/hr IV 1000 / 1000 1999 .CONT .Q8H KOMAL Rx#:[id number] Other: Date of Last Bowel Movement 08/08/18 # Bowel Movements 1 Weight On Admission 88.451 kg <Jesus Hong K - 08/08/18 16:34> Vital Signs 08/07/18 15:34 08/07/18 16:24 08/07/18 17:22 Temperature Pulse Rate 77 82 Respiratory Rate 20 18 Blood Pressure 137/92 H 126/87 Pulse Oximetry 100 99 08/07/18 18:42 08/07/18 19:34 08/07/18 23:28 Temperature 97.7 F 98.4 F Pulse Rate 78 82 72 Respiratory Rate 18 16 16 Blood Pressure 126/79 127/74 121/80 Pulse Oximetry 99 99 99 08/08/18 03:36 08/08/18 07:53 08/08/18 08:00 Temperature 98.8 F 98.5 F Pulse Rate 95 H 88 Respiratory Rate 12 16 Blood Pressure 102/53 L 124/73 Pulse Oximetry 96 100 100 Intake & Output 08/07/18 08/08/18 08/08/18 18:59 06:59 18:59 Intake Total 1000 / 1000 1000 / 1000 Balance 1000 / 1000 1000 / 1000 Weight 88.451 kg Intake: IV 1000 / 1000 1000 / 1000 NS Inj 1,000 ML @ 125 mls/hr IV 1000 / 1000 1000 / 1000 .CONT .Q8H KOMAL Rx#:[id number] Other: Weight On Admission 88.451 kg <Sonya Roa Piper - 08/08/18 11:57> Narrative: GENERAL: -[place] female, sitting up in bed, in no acute distress. SKIN: Warm and dry. HEAD: Atraumatic. Normocephalic. EYES: EMOI. No scleral icterus. No injection or drainage. ENT: No nasal bleeding or discharge. Mucous membranes pink and moist. NECK: Trachea midline. No JVD. CARDIOVASCULAR: Regular rate and rhythm. RESPIRATORY: No accessory muscle use. Clear to auscultation. Breath sounds equal bilaterally. GASTROINTESTINAL: Positive bowel sounds. Abdomen soft, nondistended. Tenderness upon palpation over epigastric region. No masses palpable. MUSCULOSKELETAL: Extremities without clubbing, cyanosis, or edema. No obvious deformities. NEUROLOGICAL: Awake and alert. No obvious cranial nerve deficits. Motor grossly within normal limits. Normal speech. PSYCHIATRIC: Appropriate mood and affect; insight and judgment normal. <Sonya Roa - 08/08/18 11:57> Assessment and Plan - Assessment (1) Abdominal pain Code(s): R10.9 - Unspecified abdominal pain Status: Acute (2) Abnormal liver enzymes Code(s): R74.8 - Abnormal levels of other serum enzymes Status: Acute (3) Elevated bilirubin Code(s): R17 - Unspecified jaundice Status: Acute (4) Nutrition, metabolism, and development symptoms Code(s): R63.8 - Other symptoms and signs concerning food and fluid intake Status: Acute <Jesus Hong - 08/08/18 16:34> (1) Abdominal pain Code(s): R10.9 - Unspecified abdominal pain Status: Acute Plan: Patient with epigastric pain. Gastric ulcer versus biliary/hepatic duct stone versus infectious versus autoimmune etiology. WBC 3.8. Afebrile. Vitals wnl and stable. CT abdomen/pelvis: No acute findings. Previous cholecystectomy with mild intrahepatic biliary ductal dilatation. Mild constipation. MRCP: Post cholecystectomy with commonly seen mild biliary ductal dilatation. Normal pancreatic duct. No evidence for choledocholithiasis. No acute findings. LFTs abnormal on admission, AST/ALT 103/612, improving today at 124/356. Lipase wnl. Tumor AFP wnl. Hepatitis panel nonreactive. SHERIE pending. UA positive for moderate bilirubin, trace leukoesterase and 10 white blood cells. Culture indicated. Urine culture less than 50,000 CFU/mL of mixed jhonathan, probable contaminants. No treatment indicated. IV hydration as below. Protonix 40mg PO daily. Miralax 17gm PO daily. GI consulted * MRCP ordered yesterday showed post cholecystectomy with commonly seen mild biliary ductal dilatation. Normal pancreatic duct. No evidence for choledocholithiasis. No acute findings. * Ordered iron profile, ferritin, ceruloplasmin, smooth muscle antibody, alpha- 1 antitrypsin, and mitochondrial M2 antibody levels. * Plan for EGD with ERCP tomorrow * N.p.o. after midnight in preparation for procedure. (2) Abnormal liver enzymes Code(s): R74.8 - Abnormal levels of other serum enzymes Status: Acute Plan: See Plan above. (3) Elevated bilirubin Code(s): R17 - Unspecified jaundice Status: Acute Plan: See Plan above. (4) Nutrition, metabolism, and development symptoms Code(s): R63.8 - Other symptoms and signs concerning food and fluid intake Status: Acute Plan: Fluid: NS at 125 ml/hr. Diet: Clear liquid diet. N.p.o. after midnight in preparation for EGD with ERCP Electrolytes: Monitor and replete as necessary. <Sonya Roa - 08/08/18 11:46> - Assessment and Plan sdw Dr. Hong and Dr. Hernandez <Sonya Roa - 08/08/18 11:57> - Attending Attestation The exam, history, and the medical decision-making described in the above note were completed with the assistance of the resident physician. I reviewed and agree with the findings presented. I attest that I had a [id number] encounter with the patient on the same day, and personally performed and documented my assessment and findings in the medical record. Much improved clinically and lab mcneill today. abdominal pain significantly improved on exam. still on PPI/anti emetics. transaminitis work up pending but MRCP with no concerns. GI plans for EGD tomorrow. hopeful d/c soon after that. <Jesus Hong - 08/08/18 16:34> <Sonya Roa - Last Filed: 08/08/18 11:46> (1) Abdominal pain Qualifiers: Abdominal location: epigastric Qualified Code(s): R10.13 - Epigastric pain <Jesus Hong - Last Filed: 08/08/18 16:34> (1) Abdominal pain Qualifiers: Abdominal location: epigastric Qualified Code(s): R10.13 - Epigastric pain <Sonya Roa B - Last Filed: 08/08/18 11:46> (1) Abdominal pain Qualifiers: Abdominal location: epigastric Qualified Code(s): R10.13 - Epigastric pain <Jesus Hong K - Last Filed: 08/08/18 16:34> (1) Abdominal pain Qualifiers: Abdominal location: epigastric Qualified Code(s): R10.13 - Epigastric pain
[2018-08-08 13:04] LABS: % Iron Saturation 62.6 % (20-50)
[2018-08-08] MEDS ORDERED: Naloxone Inj 0.4 MG/ML Vial IV.PUSH PRN (20:23)
[2018-08-09] MEDS: Sod Chloride 0.9% Inj 1,000 ML IV.CONT SCH ×2 (06:18→16:57)
[2018-08-09 07:29] LABS: Baso # (Auto) 0.1 th/mm3 (0.0-0.2); Baso % (Auto) 1.6 % (0.0-2.0); Eos # (Auto) 0.1 th/mm3 (0.0-0.4); Eos % (Auto) 1.9 % (0.0-4.0); Hematocrit 33.9 % (35.0-46.0); Hemoglobin 11.5 gm/dL (11.6-15.3); Lymph # (Auto) 1.4 th/mm3 (1.0-4.8); Lymph % (Auto) 33.9 % (9.0-44.0); Mean Corpuscular HGB Conc 33.8 % (32.0-36.0); Mean Corpuscular Hemoglobin 30.8 pg (27.0-34.0); Mean Corpuscular Volume 91.3 fL (80.0-100.0); Mean Platelet Volume 8.8 fL (7.0-11.0); Mono # (Auto) 0.4 th/mm3 (0.0-0.9); Mono % (Auto) 9.8 % (0.0-8.0); Neut # (Auto) 2.1 th/mm3 (1.8-7.7); Neut % (Auto) 52.8 % (16.0-70.0); Platelet Count 201 th/mm3 (150-450); Red Blood Count 3.71 mil/mm3 (4.00-5.30); Red Cell Distribution Width 12.6 % (11.6-17.2); White Blood Count 4.1 th/mm3 (4.0-11.0)
[2018-08-09 08:09] LABS: Albumin 3.2 g/dL (3.4-5.0); Anion Gap 8 meq/L (5-15); Aspartate Aminotransferase 76 U/L (15-37); Blood Urea Nitrogen 4 mg/dL (7-18); Calcium 8.5 mg/dL (8.5-10.1); Carbon Dioxide 23.9 meq/L (21.0-32.0); Chloride 108 meq/L (98-107); Glomerular Filtration Rate Greater Than 89 mL/min (>89); Glucose,Random 68 mg/dL (74-106); Potassium 3.6 meq/L (3.5-5.1); Sodium 140 meq/L (136-145)
[2018-08-09 08:10] LABS: Alanine Aminotransferase 273 U/L (10-53)
[2018-08-09 08:12] LABS: Alkaline Phosphatase 164 U/L (45-117); Total Protein 6.9 g/dL (6.4-8.2)
[2018-08-09] MEDS: Polyethylene Glycol 3350 17 GM Packet PO SCH (08:29)
[2018-08-09] MEDS: Senna/Docusate Sodium 8.6/50 MG Tablet PO SCH ×2 (08:29→20:01)
--- NOTE | 2018-08-09 11:03 | P.PNFP ---
Subjective Interval history: Patient was seen and evaluated this morning. She is doing well but continues to experience epigastric pain as well as nausea. She denies vomiting. She denies chest pain, shortness of breath, diarrhea and constipation. Patient scheduled for EGD this morning. All questions were answered. <Lonny Gi Hale - 08/09/18 12:35> Results - Labs Result diagrams: 08/09/18 05:58 08/09/18 05:58 <Jesus Hong - 08/09/18 21:21> Abnormal lab results 08/09/18 08/09/18 Range/Units 05:58 05:58 RBC 3.71 L (4.00-5.30) mil/mm3 Hgb 11.5 L (11.6-15.3) gm/dL Hct 33.9 L (35.0-46.0) % [place] % (Auto) 9.8 H (0.0-8.0) % Chloride 108 H (98-107) meq/L BUN 4 L (7-18) mg/dL Random Glucose 68 L (74-106) mg/dL Total Bilirubin 4.7 H (0.2-1.0) mg/dL AST 76 H (15-37) U/L ALT 273 H (10-53) U/L Alkaline Phosphatase 164 H (45-117) U/L Albumin 3.2 L (3.4-5.0) g/dL Short CBC 08/09/18 Range/Units 05:58 WBC 4.1 (4.0-11.0) th/mm3 Hgb 11.5 L (11.6-15.3) gm/dL Hct 33.9 L (35.0-46.0) % Plt Count 201 (150-450) th/mm3 [facility] 08/09/18 05:58 Sodium 140 Potassium 3.6 Chloride 108 H Carbon Dioxide 23.9 BUN 4 L Creatinine 0.53 Calcium 8.5 Liver Function 08/09/18 Range/Units 05:58 Total Bilirubin 4.7 H (0.2-1.0) mg/dL AST 76 H (15-37) U/L ALT 273 H (10-53) U/L Alkaline Phosphatase 164 H (45-117) U/L Albumin 3.2 L (3.4-5.0) g/dL <Jesus Hong - 08/09/18 21:21> Abnormal lab results 08/08/18 08/09/18 08/09/18 Range/Units 11:33 05:58 05:58 RBC 3.71 L (4.00-5.30) mil/mm3 Hgb 11.5 L (11.6-15.3) gm/dL Hct 33.9 L (35.0-46.0) % [place] % (Auto) 9.8 H (0.0-8.0) % Chloride 108 H (98-107) meq/L BUN 4 L (7-18) mg/dL Random Glucose 68 L (74-106) mg/dL Iron 226 H (50-170) mcg/dL % Saturation 62.6 H (20-50) % Total Bilirubin 4.7 H (0.2-1.0) mg/dL AST 76 H (15-37) U/L ALT 273 H (10-53) U/L Alkaline Phosphatase 164 H (45-117) U/L Albumin 3.2 L (3.4-5.0) g/dL Short CBC 08/09/18 Range/Units 05:58 WBC 4.1 (4.0-11.0) th/mm3 Hgb 11.5 L (11.6-15.3) gm/dL Hct 33.9 L (35.0-46.0) % Plt Count 201 (150-450) th/mm3 BMP 08/09/18 05:58 Sodium 140 Potassium 3.6 Chloride 108 H Carbon Dioxide 23.9 BUN 4 L Creatinine 0.53 Calcium 8.5 Liver Function 08/09/18 Range/Units 05:58 Total Bilirubin 4.7 H (0.2-1.0) mg/dL AST 76 H (15-37) U/L ALT 273 H (10-53) U/L Alkaline Phosphatase 164 H (45-117) U/L Albumin 3.2 L (3.4-5.0) g/dL <Gi Millard - 08/09/18 11:03> - Imaging Impressions GI Procedure 08/09/18 00:00 CONCLUSION: No acute abnormality. Mildly prominent common bile duct, probably reservoir effect postcholecystectomy. No filling defects are demonstrated. <Jesus Hong - 08/09/18 21:21> Physical Exam Vital signs: Vital Signs 08/09/18 00:00 08/09/18 04:00 08/09/18 07:46 Temperature 98.7 F Pulse Rate 73 80 82 Respiratory Rate 16 16 18 Blood Pressure 136/83 144/65 H 112/56 L Pulse Oximetry 100 98 100 08/09/18 11:10 08/09/18 15:21 08/09/18 15:30 Temperature 98.6 F 98 F Pulse Rate 88 111 H 109 H Respiratory Rate 18 20 24 Blood Pressure 133/71 122/70 121/73 Pulse Oximetry 99 100 100 08/09/18 15:45 08/09/18 16:57 08/09/18 19:42 Temperature 98 F 98.3 F Pulse Rate 104 H 89 Respiratory Rate 21 17 18 Blood Pressure 121/75 126/59 L Pulse Oximetry 100 98 Intake & Output 08/09/18 08/09/18 08/10/18 06:59 18:59 06:59 Intake Total 1850 / 1850 850 / 850 916 / 916 Output Total 0 / 0 Balance 1850 / 1850 850 / 850 916 / 916 Intake: IV 1850 / 1850 850 / 850 916 / 916 NS Inj 1,000 ML @ 125 mls/hr IV 1850 / 1850 850 / 850 .CONT .Q8H KOMAL Rx#:[id number] LR 1000 mL Inj 1,000 ML @ 250 916 / 916 mls/hr IV.SIG .Q4H KOMAL Rx#: [id number] Oral 0 / 0 Output: Urine 0 / 0 Other: Date of Last Bowel Movement 08/08/18 08/08/18 08/08/18 <Jesus Hong 08/09/18 21:21> Vital Signs 08/08/18 12:00 08/08/18 16:00 08/09/18 00:00 Temperature 99.2 F 98.7 F Pulse Rate 82 66 73 Respiratory Rate 16 16 16 Blood Pressure 126/80 117/57 L 136/83 Pulse Oximetry 99 99 100 08/09/18 04:00 08/09/18 07:46 Temperature 98.7 F Pulse Rate 80 82 Respiratory Rate 16 18 Blood Pressure 144/65 H 112/56 L Pulse Oximetry 98 100 Intake & Output 08/08/18 08/09/18 08/09/18 18:59 06:59 18:59 Intake Total 1999 Balance 1999 Intake: IV 1999 NS Inj 1,000 ML @ 125 mls/hr IV 1999 .CONT .Q8H KOMAL Rx#:[id number] Other: Date of Last Bowel Movement 08/08/18 08/08/18 08/08/18 # Bowel Movements 1 <Gi Millard - 08/09/18 11:03> Narrative: GENERAL: -Iranian female, laying in bed, in no acute distress. SKIN: Warm and dry. HEAD: Atraumatic. Normocephalic. EYES: EMOI. No scleral icterus. No injection or drainage. ENT: No nasal bleeding or discharge. Mucous membranes pink and moist. CARDIOVASCULAR: Regular rate and rhythm. RESPIRATORY: No accessory muscle use. Clear to auscultation. Breath sounds equal bilaterally. GASTROINTESTINAL: Positive bowel sounds. Abdomen soft, nondistended. Tenderness upon palpation over epigastric region. MUSCULOSKELETAL: Extremities without clubbing, cyanosis, or edema. No obvious deformities. NEUROLOGICAL: Awake and alert. Normal speech. PSYCHIATRIC: Appropriate mood and affect; insight and judgment normal. <Gi Millard - 08/09/18 12:35> Assessment and Plan - Assessment (1) Abdominal pain Code(s): R10.9 - Unspecified abdominal pain Status: Acute (2) Abnormal liver enzymes Code(s): R74.8 - Abnormal levels of other serum enzymes Status: Acute (3) Elevated bilirubin Code(s): R17 - Unspecified jaundice Status: Acute (4) Nutrition, metabolism, and development symptoms Code(s): R63.8 - Other symptoms and signs concerning food and fluid intake Status: Acute <Jesus Hong - 08/09/18 21:21> (1) Abdominal pain Code(s): R10.9 - Unspecified abdominal pain Status: Acute Plan: Patient with epigastric pain. Gastric ulcer versus biliary/hepatic duct stone versus infectious versus autoimmune etiology. WBC 4.1. Afebrile. Vitals wnl and stable. CT abdomen/pelvis: No acute findings. Previous cholecystectomy with mild intrahepatic biliary ductal dilatation. Mild constipation. MRCP: Post cholecystectomy with commonly seen mild biliary ductal dilatation. Normal pancreatic duct. No evidence for choledocholithiasis. No acute findings. LFTs abnormal on admission, AST/ALT 103/612, improving today at 76/273. Lipase wnl. Tumor AFP wnl. Hepatitis panel nonreactive. SHERIE negative. Iron 226, TIBC 361, % saturation 62.6, ferritin 63. Ceruloplasmin pending. UA positive for moderate bilirubin, trace leukocyte esterase and 10 white blood cells. Culture indicated. Urine culture less than 50,000 CFU/mL of mixed jhonathan, probable contaminants. No treatment indicated. IV hydration as below. Protonix 40mg PO daily. Miralax 17gm PO daily. GI consulted * Plan for EGD this morning. * NPO after midnight in preparation for procedure. (2) Abnormal liver enzymes Code(s): R74.8 - Abnormal levels of other serum enzymes Status: Acute Plan: See Plan above. (3) Elevated bilirubin Code(s): R17 - Unspecified jaundice Status: Acute Plan: Up-trending. See Plan above. (4) Nutrition, metabolism, and development symptoms Code(s): R63.8 - Other symptoms and signs concerning food and fluid intake Status: Acute Plan: Fluid: NS at 125 ml/hr. Diet: Clear liquid diet. NPO after midnight in preparation for EGD. Electrolytes: Monitor and replete as necessary. <Gi Millard - 08/09/18 12:29> - Assessment and Plan Discharge Planning: Pending clinical improvement and GI clearance. <Gi Millard - 08/09/18 12:35> - Attending Attestation The exam, history, and the medical decision-making described in the above note were completed with the assistance of the resident physician. I reviewed and agree with the findings presented. I attest that I had a [id number] encounter with the patient on the same day, and personally performed and documented my assessment and findings in the medical record. Saw prior to procedure and she was still feeling much better ERCP today found retained ductal stone, removed. Follow labs tomorrow and clinically for pancreatitis and response to therapy <Jesus Hong - 08/09/18 21:21> <Labell [id number] - Last Filed: 08/09/18 12:29> (1) Abdominal pain Qualifiers: Abdominal location: epigastric Qualified Code(s): R10.13 - Epigastric pain <Jesus Hong - Last Filed: 08/09/18 21:21> (1) Abdominal pain Qualifiers: Abdominal location: epigastric Qualified Code(s): R10.13 - Epigastric pain <Labell Gi Hale - Last Filed: 08/09/18 12:29> (1) Abdominal pain Qualifiers: Abdominal location: epigastric Qualified Code(s): R10.13 - Epigastric pain <Jesus Hong - Last Filed: 08/09/18 21:21> (1) Abdominal pain Qualifiers: Abdominal location: epigastric Qualified Code(s): R10.13 - Epigastric pain
[2018-08-09] MEDS ORDERED: Metoprolol Tartrate 25 MG Tablet PO ONE (13:47)
[2018-08-09] MEDS ORDERED: Chlorhexidine Gluconate 2% 1 Pack (2 Cloths) TOPICAL ONE (13:47)
[2018-08-09] MEDS ORDERED: Sodium Chlor 0.9% Inj 500 ML IV.SIG SCH (14:00)
[2018-08-09] MEDS ORDERED: Lidocaine PF 1% Inj 5 ML Syringe OTHER ONE (14:05)
[2018-08-09] MEDS ORDERED: Glycopyrrolate Inj 1 MG/5 ML Syringe IV.PUSH ONE (14:05)
[2018-08-09] MEDS ORDERED: Ampicillin/Sulbactam 3 GM Vial ONE (14:14)
[2018-08-09 14:44] LABS: Smooth Muscle Total Auto Abs Negative (Negative)
[2018-08-09] MEDS ORDERED: *morphine SULFATE 4 MG/ML PERIprocedure ONLY ONE (15:31)
--- NOTE | 2018-08-09 15:35 | FL ---
EXAM DATE: 08/09/2018 3:30 PM EST AGE/SEX: 22 years / Female INDICATIONS: Obstruction; pancreatitis. CLINICAL DATA: This is the patient's initial encounter. Patient reports that signs and symptoms have been present for 1 day and indicates a pain score of Nonresponsive. MEDICAL/SURGICAL HISTORY: Non-responsive. Non-responsive. COMPARISON: [facility] [place], CT ABDOMEN & PELVIS W CONTRAST, 08/07/2018. . FLUORO TIME: 121.8 seconds IMAGE COUNT: 8 RADIATION DOSE: 1.2 mgym2 DAP FINDINGS: An ERCP was performed by the ordering physician. The images demonstrate an upper limits of normal ca liber bile duct without perceptible filling defect. CONCLUSION: No acute abnormality. Mildly prominent common bile duct, probably reservoir effect postcholecystectom y. No filling defects are demonstrated. Electronically signed by: Ha Lord MD Board Certified Radiologist 08/09/2018 3:34 PM EST
--- NOTE | 2018-08-09 15:41 | GIPROC ---
[facility] [address] [facility]. [facility], [address] ERCP PROCEDURE REPORT EXAM DATE: 08/09/2018 PATIENT NAME: Elvira Lindsay MR #: [id number] BIRTHDATE: 1995 ATTENDING: Janes Campbell MD ORDER #: [id number] RECEPTIONIST DOCTOR'S OFFICE: Luann Lock and Roshan Jones STATUS: inpatient INDICATIONS: The patient is a 22 yr old female here for an ERCP due to abdominal pain of suspected biliary origin, abnormal liver function test , and abnormal MRCP PROCEDURE PERFORMED: ERCP with sphincterotomy/papillotomy ERCP with removal of calculus/calculi MEDICATIONS: Per Anesthesia and None. CONSENT: The patient understands the risks and benefits of the procedure and understands that these risks include, but are not limited to: sedation, allergic reaction, infection, perforation and/or bleeding. Alternative means of evaluation and treatment include, among others: physical exam, x-rays, and/or surgical intervention. The patient elects to proceed with this endoscopic procedure. medical equipment was checked for proper function. Hand hygiene and appropriate measures for infection prevention was taken. After the risks, benefits and alternatives of the procedure were thoroughly explained, Informed was verified, confirmed and timeout was successfully executed by the treatment team. With the patient in prone position, medications were administered intravenously.The Pentax [id number] was passed from the mouth into the esophagus and further advanced from the esophagus into the stomach. From stomach scope was directed to the second portion of the duodenum. Major papilla was aligned with the duodenoscope. The scope position was confirmed fluoroscopically..Major ampula large,bulging due to cbd stone stuck in ampula. Selective CBD cannulation failed. Precut done with Needle knife .Stone passed into D2. CBd D selectively cannulated with Sphincterotome. Sphincteromy extended. Stone extraction balloon next passed on .Multiple pull through done .No more stones seen Rest of the findings/therapeutics are given below. The scope was then completely withdrawn from the patient and the procedure completed. The pulse, BP, and O2 saturation were monitored and documented by the physician and the nursing staff throughout the entire procedure. The patient was cared for as planned according to standard protocol. The patient was then discharged to recovery in stable condition and with appropriate post procedure care. Th ADVERSE EVENT: There were no complications. IMPRESSIONS: Ampulla appeared distorted CBD stone s/p removal S/P Needle knife precut, ES, Balloon extraction RECOMMENDATIONS: 1. Admit to hospital 2. Monitor labs IVF LR 250/hr X 6hrs REPEAT EXAM: Return as needed for ERCP Janes Campbell MD eSigned: Janes Campbell MD 08/09/2018 3:41 PM cc: PATIENT NAME: Elvira Lindsay MR#: [id number]
[2018-08-09] MEDS ORDERED: Iohexol 350 MG/ML 50 ML Vial (for Rad Diag) PO ONE (16:04)
[2018-08-10] MEDS ORDERED: Simethicone 125 MG Chew Tablet PO ONE (03:37)
[2018-08-10] MEDS ORDERED: Morphine Inj 4 MG/ML Vial IV.PUSH ONE (05:00)
[2018-08-10] MEDS ORDERED: Morphine Sulfate Inj 2 MG/ML Vial IV.PUSH PRN ×2 (05:02→08:52)
[2018-08-10] MEDS: Acetaminophen Inj 650 MG/65 ML VIAL IV.SIG ONE ×2 (05:19→06:45)
--- NOTE | 2018-08-10 05:26 | P.PNADD ---
Addendum to Inpatient Note Reason for Addendum: Additional Documentation Additional information: She is a 22-year old female status post ERCP, sphincterotomy, and stone removal yesterday. She started having increasing abdominal pain this morning and had her first episode of emesis around 0330. She was given a Zofran without relief. She then had multiple episodes of bilious emesis without blood. She was given simethicone by mouth for the pain, which she promptly threw up. I evaluated her around 0500. Her pain right now is constant and mostly epigastric. It is slightly improved sitting in the upright position and is exacerbated by movement and deep breathing. General: Obese female, sitting up in bed, in obvious pain Cardiac: Regular rate and rhythm without murmur Pulmonary: Clear to auscultation bilaterally with good air entry Abdominal: Hypoactive bowel sounds, moderate tenderness to palpation in the RUQ , mild tenderness elsewhere. Without guarding or rebound. Extremities: 2+ peripheral pulses, no edema Assessment and plan: Due to her pain, hypoactive bowel sounds, and emesis she likely has postprocedure ileus. It is unlikely this is gallstone ileus, post ERCP ileus is otherwise uncommon. Post procedure pancreatitis must also be considered. Upright abdomen XR IV Tylenol and 2 mg IV morphine now, repeat dose of 2 mg IV morphine for pain does not improve significantly Lipase and CMP
[2018-08-10 05:49] LABS: Alanine Aminotransferase 258 U/L (10-53); Albumin 3.5 g/dL (3.4-5.0); Anion Gap 9 meq/L (5-15); Aspartate Aminotransferase 91 U/L (15-37); Blood Urea Nitrogen 4 mg/dL (7-18); Calcium 8.8 mg/dL (8.5-10.1); Carbon Dioxide 23.4 meq/L (21.0-32.0); Chloride 107 meq/L (98-107); Glucose,Random 138 mg/dL (74-106); Potassium 3.8 meq/L (3.5-5.1); Sodium 139 meq/L (136-145)
[2018-08-10 05:51] LABS: Alkaline Phosphatase 173 U/L (45-117); Lipase 15167 U/L (73-393); Total Protein 7.4 g/dL (6.4-8.2)
--- NOTE | 2018-08-10 06:04 | XR ---
EXAM DATE: 08/10/2018 6:00 AM EST AGE/SEX: 22 years / Female INDICATIONS: Epigastric pain. CLINICAL DATA: This is the patient's subsequent encounter. Patient reports that signs and symptoms h ave been present for 3 days and indicates a pain score of 8/10. MEDICAL/SURGICAL HISTORY: None. Cholecystectomy. COMPARISON: [facility] [place], 08/17/2017. . FINDINGS: A single erect view of the abdomen demonstrates the lower lungs to be clear. No evidence of free intr aperitoneal gas. The visualized bowel loops are unremarkable. Surgical clips in the right upper abdom inal quadrant are characteristic of prior cholecystectomy CONCLUSION: Radiographically benign abdomen without obstruction or pneumoperitoneum. Electronically signed by: Erik Taylor MD Board Certified Radiologist 08/10/2018 6:02 AM EST
[2018-08-10] MEDS: Senna/Docusate Sodium 8.6/50 MG Tablet PO SCH (08:33)
[2018-08-10] MEDS: Polyethylene Glycol 3350 17 GM Packet PO SCH (08:33)
[2018-08-10] MEDS ORDERED: Naloxone Inj 0.4 MG/ML Vial IV.PUSH PRN (08:52)
--- NOTE | 2018-08-10 08:55 | P.PNFP ---
Subjective Interval history: Patient was seen and evaluated this morning. She reports diffuse abdominal pain and nausea. She denies vomiting. She denies diarrhea. Patient denies chest pain and shortness of breath. She was unable to sleep last night and feels very tired this morning. Spoke to mom over the phone to update on daughter's condition. All questions were answered. <Lonny Gi Hale - 08/10/18 11:03> Results - Labs Result diagrams: 08/09/18 05:58 08/10/18 05:20 <Jesus Hong - 08/10/18 11:51> Abnormal lab results 08/10/18 Range/Units 05:20 BUN 4 L (7-18) mg/dL Random Glucose 138 H (74-106) mg/dL Total Bilirubin 3.7 H (0.2-1.0) mg/dL AST 91 H (15-37) U/L ALT 258 H (10-53) U/L Alkaline Phosphatase 173 H (45-117) U/L Lipase 81825 H (73-393) U/L [facility] 08/10/18 05:20 Sodium 139 Potassium 3.8 Chloride 107 Carbon Dioxide 23.4 BUN 4 L Creatinine 0.60 Calcium 8.8 Liver Function 08/10/18 Range/Units 05:20 Total Bilirubin 3.7 H (0.2-1.0) mg/dL AST 91 H (15-37) U/L ALT 258 H (10-53) U/L Alkaline Phosphatase 173 H (45-117) U/L Albumin 3.5 (3.4-5.0) g/dL <Jesus Hong - 08/10/18 11:51> Abnormal lab results 08/10/18 Range/Units 05:20 BUN 4 L (7-18) mg/dL Random Glucose 138 H (74-106) mg/dL Total Bilirubin 3.7 H (0.2-1.0) mg/dL AST 91 H (15-37) U/L ALT 258 H (10-53) U/L Alkaline Phosphatase 173 H (45-117) U/L Lipase 65470 H (73-393) U/L [facility] 08/10/18 05:20 Sodium 139 Potassium 3.8 Chloride 107 Carbon Dioxide 23.4 BUN 4 L Creatinine 0.60 Calcium 8.8 Liver Function 08/10/18 Range/Units 05:20 Total Bilirubin 3.7 H (0.2-1.0) mg/dL AST 91 H (15-37) U/L ALT 258 H (10-53) U/L Alkaline Phosphatase 173 H (45-117) U/L Albumin 3.5 (3.4-5.0) g/dL <Labell Kymberly Halein - 08/10/18 08:55> - Imaging Impressions GI Procedure 08/09/18 00:00 CONCLUSION: No acute abnormality. Mildly prominent common bile duct, probably reservoir effect postcholecystectomy. No filling defects are demonstrated. Abdomen X-Ray 08/10/18 00:00 CONCLUSION: Radiographically benign abdomen without obstruction or pneumoperitoneum. <Jesus Hong - 08/10/18 11:51> Impressions GI Procedure 08/09/18 00:00 CONCLUSION: No acute abnormality. Mildly prominent common bile duct, probably reservoir effect postcholecystectomy. No filling defects are demonstrated. Abdomen X-Ray 08/10/18 00:00 CONCLUSION: Radiographically benign abdomen without obstruction or pneumoperitoneum. <Labell Alexia,Gi - 08/10/18 08:55> Physical Exam Vital signs: Vital Signs 08/09/18 15:21 08/09/18 15:30 08/09/18 15:45 Temperature 98 F 98 F Pulse Rate 111 H 109 H 104 H Respiratory Rate 20 24 21 Blood Pressure 122/70 121/73 121/75 Pulse Oximetry 100 100 100 08/09/18 16:57 08/09/18 19:42 08/09/18 23:37 Temperature 98.3 F 98.2 F Pulse Rate 89 94 H Respiratory Rate 17 18 17 Blood Pressure 126/59 L 123/79 Pulse Oximetry 98 96 08/10/18 03:46 08/10/18 07:15 08/10/18 07:56 Temperature 98.4 F 98.6 F Pulse Rate 79 71 Respiratory Rate 20 8 L 16 Blood Pressure 142/84 H 139/83 Pulse Oximetry 98 99 08/10/18 08:00 08/10/18 09:17 08/10/18 09:46 Temperature Pulse Rate Respiratory Rate 17 18 17 Blood Pressure Pulse Oximetry 08/10/18 11:45 Temperature 99 F Pulse Rate 78 Respiratory Rate 16 Blood Pressure 135/73 Pulse Oximetry 98 Intake & Output 08/09/18 08/10/18 08/10/18 18:59 06:59 18:59 Intake Total 850 / 850 1915 545 / 545 Output Total 0 / 0 Balance 850 / 850 1915 545 / 545 Intake: IV 850 / 850 1915 65 / 65 NS Inj 1,000 ML @ 125 mls/hr IV 850 / 850 .CONT .Q8H [facility] Rx#:[id number] Ofirmev Inj 650 mg In 65 ml @ 65 / 65 400 mls/hr IV.SIG ONCE ONE Rx#: [id number] LR 1000 mL Inj 1,000 ML @ 250 1915 mls/hr IV.SIG .Q4H [facility] Rx#: [id number] Oral 0 / 0 480 / 480 Output: Urine 0 / 0 Other: # Voids 4 Date of Last Bowel Movement 08/08/18 08/08/18 08/08/18 # Emeses 5 <Jesus Hong K - 08/10/18 11:51> Vital Signs 08/09/18 11:10 08/09/18 15:21 08/09/18 15:30 Temperature 98.6 F 98 F Pulse Rate 88 111 H 109 H Respiratory Rate 18 20 24 Blood Pressure 133/71 122/70 121/73 Pulse Oximetry 99 100 100 08/09/18 15:45 08/09/18 16:57 08/09/18 19:42 Temperature 98 F 98.3 F Pulse Rate 104 H 89 Respiratory Rate 21 17 18 Blood Pressure 121/75 126/59 L Pulse Oximetry 100 98 08/09/18 23:37 08/10/18 03:46 08/10/18 07:15 Temperature 98.2 F 98.4 F Pulse Rate 94 H 79 Respiratory Rate 17 20 8 L Blood Pressure 123/79 142/84 H Pulse Oximetry 96 98 08/10/18 07:56 Temperature 98.6 F Pulse Rate 71 Respiratory Rate 16 Blood Pressure 139/83 Pulse Oximetry 99 Intake & Output 08/09/18 08/10/18 08/10/18 18:59 06:59 18:59 Intake Total 850 / 850 1915 545 / 545 Output Total 0 / 0 Balance 850 / 850 1915 545 / 545 Intake: IV 850 / 850 1915 65 / 65 NS Inj 1,000 ML @ 125 mls/hr IV 850 / 850 .CONT .Q8H [facility] Rx#:[id number] Ofirmev Inj 650 mg In 65 ml @ 65 / 65 400 mls/hr IV.SIG ONCE ONE Rx#: [id number] LR 1000 mL Inj 1,000 ML @ 250 1915 mls/hr IV.SIG .Q4H [facility] Rx#: [id number] Oral 0 / 0 480 / 480 Output: Urine 0 / 0 Other: # Voids 4 Date of Last Bowel Movement 08/08/18 08/08/18 # Emeses 5 <Gi Millard - 08/10/18 08:55> Narrative: GENERAL: -[place] Citizen female, laying in bed, in obvious pain. SKIN: Warm and dry. HEAD: Atraumatic. Normocephalic. EYES: EMOI. No scleral icterus. No injection or drainage. CARDIOVASCULAR: Regular rate and rhythm. RESPIRATORY: No accessory muscle use. Clear to auscultation. Breath sounds equal bilaterally. GASTROINTESTINAL: Positive bowel sounds. Abdomen soft, nondistended. Diffuse tenderness upon palpation. MUSCULOSKELETAL: Extremities without clubbing, cyanosis, or edema. No obvious deformities. NEUROLOGICAL: Awake and alert. Normal speech. PSYCHIATRIC: Appropriate mood and affect; insight and judgment normal. <Gi Millard - 08/10/18 11:03> Assessment and Plan - Assessment (1) Acute pancreatitis after endoscopic retrograde cholangiopancreatography ( ERCP) Code(s): K91.89 - Other postprocedural complications and disorders of digestive system; K85.90 - Acute pancreatitis without necrosis or infection, unspecified Status: Acute (2) Abdominal pain Code(s): R10.9 - Unspecified abdominal pain Status: Acute (3) Abnormal liver enzymes Code(s): R74.8 - Abnormal levels of other serum enzymes Status: Acute (4) Elevated bilirubin Code(s): R17 - Unspecified jaundice Status: Acute (5) Nutrition, metabolism, and development symptoms Code(s): R63.8 - Other symptoms and signs concerning food and fluid intake Status: Acute <Jesus Hong - 08/10/18 11:51> (1) Acute pancreatitis after endoscopic retrograde cholangiopancreatography ( ERCP) Code(s): K91.89 - Other postprocedural complications and disorders of digestive system; K85.90 - Acute pancreatitis without necrosis or infection, unspecified Status: Acute Plan: Patient s/p ERCP with sphincterotomy/papillotomy on 08/09/18. * ERCP with removal of calculus. Patient with diffuse abdominal pain this morning. Lipase 63275. Patient allowed sips of water per GI. Aggressive IV hydration as below. Morphine for pain control. IV Potonix. Monitor labs, specifically lipase. GI following; appreciate further recommendations. (2) Abdominal pain Code(s): R10.9 - Unspecified abdominal pain Status: Acute Plan: See Plan above. Hospital Course: Patient with epigastric pain on admission. CT abdomen/pelvis: No acute findings. Previous cholecystectomy with mild intrahepatic biliary ductal dilatation. Mild constipation. MRCP: Post cholecystectomy with commonly seen mild biliary ductal dilatation. Normal pancreatic duct. No evidence for choledocholithiasis. No acute findings. LFTs abnormal on admission, AST/ALT 103/612, improving today at 76/273. Lipase wnl. Tumor AFP wnl. Hepatitis panel nonreactive. SHERIE negative. Iron 226, TIBC 361, % saturation 62.6, ferritin 63. Ceruloplasmin pending. UA positive for moderate bilirubin, trace leukocyte esterase and 10 white blood cells. Culture indicated. Urine culture less than 50,000 CFU/mL of mixed jhonathan, probable contaminants. No treatment indicated. (3) Abnormal liver enzymes Code(s): R74.8 - Abnormal levels of other serum enzymes Status: Acute Plan: See Plan above. (4) Elevated bilirubin Code(s): R17 - Unspecified jaundice Status: Acute Plan: See Plan above. (5) Nutrition, metabolism, and development symptoms Code(s): R63.8 - Other symptoms and signs concerning food and fluid intake Status: Acute Plan: Fluid: LR at 200 ml/hr. Diet: Clear liquid diet - allow sips of water. Electrolytes: Monitor and replete as necessary. <Gi Millard - 08/10/18 10:30> - Assessment and Plan Discharge Planning: Pending clinical improvement and GI clearance. <LabelGi Broussard - 08/10/18 11:03> - Attending Attestation The exam, history, and the medical decision-making described in the above note were completed with the assistance of the resident physician. I reviewed and agree with the findings presented. I attest that I had a [id number] encounter with the patient on the same day, and personally performed and documented my assessment and findings in the medical record. has epigastric pain and nausea this AM. POD #1 sphincterotomy and retained CBD stone extraction by ERCP unfortunately has developed post ERCP pancreatitis. We have made her NPO and restarted LR at 200 for aggressive IV hydration and bowel rest today will trend lipase and increase pain control as needed <Jesus Hong Kala - 08/10/18 11:51> <Labell Gi Hale - Last Filed: 08/10/18 10:30> (2) Abdominal pain Qualifiers: Abdominal location: epigastric Qualified Code(s): R10.13 - Epigastric pain <Jesus Hong Kala - Last Filed: 08/10/18 11:51> (2) Abdominal pain Qualifiers: Abdominal location: epigastric Qualified Code(s): R10.13 - Epigastric pain <Labell Gi Hale - Last Filed: 08/10/18 10:30> (2) Abdominal pain Qualifiers: Abdominal location: epigastric Qualified Code(s): R10.13 - Epigastric pain <Jesus Hong - Last Filed: 08/10/18 11:51> (2) Abdominal pain Qualifiers: Abdominal location: epigastric Qualified Code(s): R10.13 - Epigastric pain
[2018-08-10] MEDS: Pantoprazole Inj 40 MG Vial IV.PUSH SCH ×2 (09:16→20:24)
[2018-08-10] MEDS: Morphine Inj 4 MG/ML Vial IV.PUSH PRN ×7 (09:16→20:24)
--- NOTE | 2018-08-10 09:22 | P.PNGI ---
Subjective Interval history: Patient laying in bed complaining of diffuse abdominal pain from the epigastric area down to the lower quadrant RN at bedside reported patient had complaints of nausea but no vomiting Physical Exam Vital signs: Vital Signs 08/09/18 11:10 08/09/18 15:21 08/09/18 15:30 Temperature 98.6 F 98 F Pulse Rate 88 111 H 109 H Respiratory Rate 18 20 24 Blood Pressure 133/71 122/70 121/73 Pulse Oximetry 99 100 100 08/09/18 15:45 08/09/18 16:57 08/09/18 19:42 Temperature 98 F 98.3 F Pulse Rate 104 H 89 Respiratory Rate 21 17 18 Blood Pressure 121/75 126/59 L Pulse Oximetry 100 98 08/09/18 23:37 08/10/18 03:46 08/10/18 07:15 Temperature 98.2 F 98.4 F Pulse Rate 94 H 79 Respiratory Rate 17 20 8 L Blood Pressure 123/79 142/84 H Pulse Oximetry 96 98 08/10/18 07:56 Temperature 98.6 F Pulse Rate 71 Respiratory Rate 16 Blood Pressure 139/83 Pulse Oximetry 99 Intake & Output 08/09/18 08/10/18 08/10/18 18:59 06:59 18:59 Intake Total 850 / 850 1915 545 / 545 Output Total 0 / 0 Balance 850 / 850 1915 545 / 545 Intake: IV 850 / 850 1915 65 / 65 NS Inj 1,000 ML @ 125 mls/hr IV 850 / 850 .CONT .Q8H [facility] Rx#:[id number] Ofirmev Inj 650 mg In 65 ml @ 65 / 65 400 mls/hr IV.SIG ONCE ONE Rx#: [id number] LR 1000 mL Inj 1,000 ML @ 250 1915 / 1915 mls/hr IV.SIG .Q4H [facility] Rx#: [id number] Oral 0 / 0 480 / 480 Output: Urine 0 / 0 Other: # Voids 4 Date of Last Bowel Movement 08/08/18 08/08/18 # Emeses 5 - Constitutional no acute distress - Routine HEENT Exam Head: Present: normocephalic, atraumatic - Routine Neck Exam Present: supple - Routine Respiratory Exam Present: CTA bilaterally - Routine Cardiovascular Exam Present: RRR, S1, S2 - Routine Abdominal Exam Present: soft, normoactive bowel sounds, tenderness. Absent: distended Comments: Mild tenderness on palpation Patient pointed to the epigastric area with diffuse pattern towards lower quadrants is painful 12/28 - Routine Skin Exam Present: intact - Routine Neurological Exam Present: alert, oriented X3 Results - Labs CBC & Chem 7: 08/10/18 11:19 08/10/18 05:20 Laboratory Results - last 24 hr 08/08/18 08/08/18 08/10/18 11:33 12:15 05:20 Sodium 139 Potassium 3.8 Chloride 107 Carbon Dioxide 23.4 Anion Gap 9 BUN 4 L Creatinine 0.60 Random Glucose 138 H Calcium 8.8 Total Bilirubin 3.7 H AST 91 H ALT 258 H Alkaline Phosphatase 173 H Total Protein 7.4 Albumin 3.5 Lipase 89947 H Stool [id number] Less than 22 Anti-Smooth Muscle Ab Negative - Imaging Impressions GI Procedure 08/09/18 00:00 CONCLUSION: No acute abnormality. Mildly prominent common bile duct, probably reservoir effect postcholecystectomy. No filling defects are demonstrated. Abdomen X-Ray 08/10/18 00:00 CONCLUSION: Radiographically benign abdomen without obstruction or pneumoperitoneum. Assessment and Plan (1) Post-ERCP acute pancreatitis Status: Acute Code(s): K91.89 - Other postprocedural complications and disorders of digestive system; K85.90 - Acute pancreatitis without necrosis or infection, unspecified (2) Abdominal pain Status: Acute Code(s): R10.9 - Unspecified abdominal pain (3) Elevated bilirubin Status: Acute Code(s): R17 - Unspecified jaundice (4) Common bile duct dilatation Status: Acute Code(s): K83.8 - Other specified diseases of biliary tract - Plan Uncontrolled epigastric and gastric discomfort. Patient was seen in the ER approximately 2 days ago with right upper quadrant discomfort as well as uncontrolled epigastric pain. Pain initiated approximately 4 days before this admission acute onset associated with dyspepsia but no dysphasia. Patient denies any hematemesis or coffee-ground emesis and no diarrhea and no rectal bleed. Patient does note increased stressors secondary to work, college, and has noted dark orange urine as well as constipation over the past week. Patient is positive for social alcohol consumption 2-4 times a month as well as history of previous cholecystectomy 1 year ago uneventful until this point. Right upper quadrant is mild pressure to light palpation no other abdominal pain noted labs reviewed which show hemoglobin 13.3, WBC count 3.8, lipase 137, bilirubin 3.1, AST 309 elevated and ALT 612 elevated, alkaline phosphatase 210. Noted liver ultrasound on 215 showed no mass no stone and common bile duct [address] scan performed on 08/07/2018 shows previous cholecystectomy noted with mild intrahepatic biliary ductal dilatation, mild constipation otherwise no acute findings and no bowel obstruction no adenopathy. Gastroenterology was consulted to assist in her care transaminitis, hyperbilirubinemia causes as well as epigastric and gastric discomfort 10 out of 10 at time rule out inflammation versus ulcer disease Patient has had no previous EGD or colonoscopy and no family history of colon cancer or GI disease Dyspepsia uncontrolled, patient does note if she eats spicy foods and late at night due to her schedule. Patient states she is awakened at 1:59 AM with dyspepsia and it is worse in the evening time and after eating. She denies any ibuprofen or Aleve use . Stressors related to college, and work. Erratic eating schedule Hyperbilirubinemia, rule out hepatocellular disease Transaminitis unspecified rule out autoimmune versus obstruction versus infection or inflammation./Stones Social alcohol use, does not appear to be a heavy alcohol consumer History of cholecystectomy Obesity 08/08/2018 Transaminitis Dyspepsia Patient tolerating clear liquid diet without complaint of nausea or vomiting. Endorses generalized abdominal tenderness on palpation during exam -WBC 4.0 hemoglobin 11.5 hematocrit 33.8 -Total bilirubin 4.2 AST 124 ALT 356 alk phos 174 trending down-liver immunology pending -AFP 6.6 -SHERIE pending -Hepatitis panel nonreactive 08/07/2018 MRCP revealed the following : post cholecystectomy with commonly seen mild biliary ductal dilatation. Normal pancreatic duct. No evidence for choledocholithiasis. No acute findings. 08/10/2018 Assessment Patient status post ERCP with sphincterotomy/papillotomy ERCP with removal of calculus/calculi -08/09/2018 Post cholecystectomy biliary ductal dilatation Post ERCP with stones removal Acute pancreatitis post ERCP -abdominal pain secondary to post ERCP pancreatitis most likely due to reactive response to the removal of a huge stone close to the ampulla of the pancreas Plan -Sips of water/clear liquid diet -Aggressive IV hydration with LR 200 cc an hour for the next 24 hours -Monitor labs especially lipase -Liver immunology pending -Analgesics and antiemetics as per attending -Protonix p.o. twice daily 40 mg -Repeat ERCP as needed -Supportive care -Further recommendations to follow This patient was seen by myself and Dr. Campbell and this note is written on his behalf - Attending Attestation Dr. Campbell (2) Abdominal pain Qualifiers: Abdominal location: epigastric Qualified Code(s): R10.13 - Epigastric pain
[2018-08-10 12:26] LABS: Baso % (Auto) 0.3 % (0.0-2.0); Hematocrit 34.4 % (35.0-46.0); Hemoglobin 11.6 gm/dL (11.6-15.3); Lymph # (Auto) 0.4 th/mm3 (1.0-4.8); Lymph % (Auto) 6.3 % (9.0-44.0); Mean Corpuscular HGB Conc 33.7 % (32.0-36.0); Mean Corpuscular Hemoglobin 30.5 pg (27.0-34.0); Mean Corpuscular Volume 90.6 fL (80.0-100.0); Mean Platelet Volume 9.2 fL (7.0-11.0); Mono # (Auto) 0.3 th/mm3 (0.0-0.9); Mono % (Auto) 4.7 % (0.0-8.0); Neut # (Auto) 6.1 th/mm3 (1.8-7.7); Neut % (Auto) 88.7 % (16.0-70.0); Platelet Count 211 th/mm3 (150-450); Red Cell Distribution Width 13.1 % (11.6-17.2); White Blood Count 6.9 th/mm3 (4.0-11.0)
[2018-08-10 19:53] LABS: Ceruloplasmin 32 mg/dL (18-53)
[2018-08-11] MEDS: Morphine Inj 4 MG/ML Vial IV.PUSH PRN ×6 (02:15→22:16)
[2018-08-11 07:26] LABS: Anion Gap 8 meq/L (5-15); Aspartate Aminotransferase 96 U/L (15-37); Blood Urea Nitrogen 4 mg/dL (7-18); Calcium 8.4 mg/dL (8.5-10.1); Carbon Dioxide 26.9 meq/L (21.0-32.0); Chloride 104 meq/L (98-107); Glucose,Random 87 mg/dL (74-106); Potassium 3.5 meq/L (3.5-5.1); Sodium 139 meq/L (136-145)
[2018-08-11 07:29] LABS: Alanine Aminotransferase 209 U/L (10-53); Alkaline Phosphatase 142 U/L (45-117); Lipase 3341 U/L (73-393); Total Protein 6.5 g/dL (6.4-8.2)
--- NOTE | 2018-08-11 09:19 | P.PNFP ---
Subjective Interval history: Patient was seen and evaluated this morning. She continues to experience diffuse abdominal pain but denies nausea this morning. Patient also denies vomiting. She has not had a bowel movement since admission. Patient denies chest pain and shortness of breath. All questions were answered. <Lonny Gi Hale - 08/11/18 09:06> Results - Labs Result diagrams: 08/10/18 11:19 08/11/18 05:45 <Jesus Hong - 08/11/18 10:39> Abnormal lab results 08/10/18 08/10/18 08/11/18 Range/Units 11:19 13:51 05:45 RBC 3.80 L (4.00-5.30) mil/mm3 Hct 34.4 L (35.0-46.0) % Neut % (Auto) 88.7 H (16.0-70.0) % Lymph % (Auto) 6.3 L (9.0-44.0) % Lymph # (Auto) 0.4 L (1.0-4.8) th/mm3 BUN (7-18) mg/dL Calcium (8.5-10.1) mg/dL Total Bilirubin (0.2-1.0) mg/dL AST (15-37) U/L ALT (10-53) U/L Alkaline Phosphatase (45-117) U/L Albumin (3.4-5.0) g/dL Lipase 79493 H 3335 H (73-393) U/L 08/11/18 Range/Units 05:45 RBC (4.00-5.30) mil/mm3 Hct (35.0-46.0) % Neut % (Auto) (16.0-70.0) % Lymph % (Auto) (9.0-44.0) % Lymph # (Auto) (1.0-4.8) th/mm3 BUN 4 L (7-18) mg/dL Calcium 8.4 L (8.5-10.1) mg/dL Total Bilirubin 2.2 H (0.2-1.0) mg/dL AST 96 H (15-37) U/L ALT 209 H (10-53) U/L Alkaline Phosphatase 142 H (45-117) U/L Albumin 3.0 L (3.4-5.0) g/dL Lipase 3341 H (73-393) U/L Short CBC 08/10/18 Range/Units 11:19 WBC 6.9 (4.0-11.0) th/mm3 Hgb 11.6 (11.6-15.3) gm/dL Hct 34.4 L (35.0-46.0) % Plt Count 211 (150-450) th/mm3 BMP 08/11/18 05:45 Sodium 139 Potassium 3.5 Chloride 104 Carbon Dioxide 26.9 BUN 4 L Creatinine 0.58 Calcium 8.4 L Liver Function 08/11/18 Range/Units 05:45 Total Bilirubin 2.2 H (0.2-1.0) mg/dL AST 96 H (15-37) U/L ALT 209 H (10-53) U/L Alkaline Phosphatase 142 H (45-117) U/L Albumin 3.0 L (3.4-5.0) g/dL <Jesus Hong - 08/11/18 10:39> Abnormal lab results 08/10/18 08/10/18 08/11/18 Range/Units 11:19 13:51 05:45 RBC 3.80 L (4.00-5.30) mil/mm3 Hct 34.4 L (35.0-46.0) % Neut % (Auto) 88.7 H (16.0-70.0) % Lymph % (Auto) 6.3 L (9.0-44.0) % Lymph # (Auto) 0.4 L (1.0-4.8) th/mm3 BUN (7-18) mg/dL Calcium (8.5-10.1) mg/dL Total Bilirubin (0.2-1.0) mg/dL AST (15-37) U/L ALT (10-53) U/L Alkaline Phosphatase (45-117) U/L Albumin (3.4-5.0) g/dL Lipase 76921 H 3335 H (73-393) U/L 08/11/18 Range/Units 05:45 RBC (4.00-5.30) mil/mm3 Hct (35.0-46.0) % Neut % (Auto) (16.0-70.0) % Lymph % (Auto) (9.0-44.0) % Lymph # (Auto) (1.0-4.8) th/mm3 BUN 4 L (7-18) mg/dL Calcium 8.4 L (8.5-10.1) mg/dL Total Bilirubin 2.2 H (0.2-1.0) mg/dL AST 96 H (15-37) U/L ALT 209 H (10-53) U/L Alkaline Phosphatase 142 H (45-117) U/L Albumin 3.0 L (3.4-5.0) g/dL Lipase 3341 H (73-393) U/L Short CBC 08/10/18 Range/Units 11:19 WBC 6.9 (4.0-11.0) th/mm3 Hgb 11.6 (11.6-15.3) gm/dL Hct 34.4 L (35.0-46.0) % Plt Count 211 (150-450) th/mm3 BMP 08/11/18 05:45 Sodium 139 Potassium 3.5 Chloride 104 Carbon Dioxide 26.9 BUN 4 L Creatinine 0.58 Calcium 8.4 L Liver Function 08/11/18 Range/Units 05:45 Total Bilirubin 2.2 H (0.2-1.0) mg/dL AST 96 H (15-37) U/L ALT 209 H (10-53) U/L Alkaline Phosphatase 142 H (45-117) U/L Albumin 3.0 L (3.4-5.0) g/dL <Labell Gi Hale - 08/11/18 09:06> Physical Exam Vital signs: Vital Signs 08/10/18 11:45 08/10/18 15:36 08/10/18 15:54 Temperature 99 F 99.2 F Pulse Rate 78 87 Respiratory Rate 16 16 17 Blood Pressure 135/73 140/75 Pulse Oximetry 98 98 08/10/18 20:23 08/10/18 21:30 08/10/18 21:56 Temperature 98.0 F 98.4 F Pulse Rate 92 H 97 H Respiratory Rate 16 16 16 Blood Pressure 129/71 134/78 Pulse Oximetry 98 98 08/11/18 00:43 08/11/18 03:00 08/11/18 05:07 Temperature 98.0 F 99.0 F Pulse Rate 93 H 98 H Respiratory Rate 16 16 16 Blood Pressure 139/74 138/69 Pulse Oximetry 96 96 08/11/18 08:00 Temperature 100 F H Pulse Rate 106 H Respiratory Rate 16 Blood Pressure 139/70 Pulse Oximetry 94 L Intake & Output 08/10/18 08/11/18 08/11/18 18:59 06:59 18:59 Intake Total 2545 / 2545 1999 Balance 2545 / 2545 1999 Intake: IV 2064 LR 1000 mL Inj 1,000 ML @ 200 1999 mls/hr IV.CONT .Q5H KOMAL Rx#: [id number] Ofirmev Inj 650 mg In 65 ml @ 65 / 65 400 mls/hr IV.SIG ONCE ONE Rx#: [id number] Oral 480 / 480 Other: # Voids 4 Date of Last Bowel Movement 08/08/18 08/09/18 # Emeses 5 1 <Jesus Hong Kala - 08/11/18 10:39> Vital Signs 08/10/18 09:17 08/10/18 09:46 08/10/18 11:45 Temperature 99 F Pulse Rate 78 Respiratory Rate 18 17 16 Blood Pressure 135/73 Pulse Oximetry 98 08/10/18 15:36 08/10/18 15:54 08/10/18 20:23 Temperature 99.2 F 98.0 F Pulse Rate 87 92 H Respiratory Rate 16 17 16 Blood Pressure 140/75 129/71 Pulse Oximetry 98 98 08/10/18 21:30 08/10/18 21:56 08/11/18 00:43 Temperature 98.4 F 98.0 F Pulse Rate 97 H 93 H Respiratory Rate 16 16 16 Blood Pressure 134/78 139/74 Pulse Oximetry 98 96 08/11/18 03:00 08/11/18 05:07 08/11/18 08:00 Temperature 99.0 F 100 F H Pulse Rate 98 H 106 H Respiratory Rate 16 16 16 Blood Pressure 138/69 139/70 Pulse Oximetry 96 94 L Intake & Output 08/10/18 08/11/18 08/11/18 18:59 06:59 18:59 Intake Total 2544 / 2545 1999 Balance 2545 / 2545 1999 Intake: IV 2064 LR 1000 mL Inj 1,000 ML @ 200 1999 mls/hr IV.CONT .Q5H KOMAL Rx#: [id number] Ofirmev Inj 650 mg In 65 ml @ 65 / 65 400 mls/hr IV.SIG ONCE ONE Rx#: [id number] Oral 480 / 480 Other: # Voids 4 Date of Last Bowel Movement 08/08/18 # Emeses 5 1 <Gi Millard - 08/11/18 09:06> Narrative: GENERAL: -[place] female, laying in bed, in no acute distress. Patient smiling. SKIN: Warm and dry. HEAD: Atraumatic. Normocephalic. EYES: EMOI. No scleral icterus. No injection or drainage. CARDIOVASCULAR: Regular rate and rhythm. RESPIRATORY: No accessory muscle use. Clear to auscultation. Breath sounds equal bilaterally. GASTROINTESTINAL: Hypoactive bowel sounds. Abdomen soft, nondistended. Diffuse tenderness upon palpation. MUSCULOSKELETAL: Extremities without clubbing, cyanosis, or edema. No obvious deformities. NEUROLOGICAL: Awake and alert. Normal speech. PSYCHIATRIC: Appropriate mood and affect; insight and judgment normal. <Gi Millard - 08/11/18 09:06> Assessment and Plan - Assessment (1) Acute pancreatitis after endoscopic retrograde cholangiopancreatography ( ERCP) Code(s): K91.89 - Other postprocedural complications and disorders of digestive system; K85.90 - Acute pancreatitis without necrosis or infection, unspecified Status: Acute (2) Abdominal pain Code(s): R10.9 - Unspecified abdominal pain Status: Acute (3) Abnormal liver enzymes Code(s): R74.8 - Abnormal levels of other serum enzymes Status: Acute (4) Elevated bilirubin Code(s): R17 - Unspecified jaundice Status: Acute (5) Nutrition, metabolism, and development symptoms Code(s): R63.8 - Other symptoms and signs concerning food and fluid intake Status: Acute <Jesus Hong - 08/11/18 10:39> (1) Acute pancreatitis after endoscopic retrograde cholangiopancreatography ( ERCP) Code(s): K91.89 - Other postprocedural complications and disorders of digestive system; K85.90 - Acute pancreatitis without necrosis or infection, unspecified Status: Acute Plan: Patient s/p ERCP with sphincterotomy/papillotomy on 08/09/18. * ERCP with removal of calculus. Patient with diffuse abdominal pain this morning. Lipase downtrending; 3341. Patient allowed sips of water per GI. Aggressive IV hydration as below. Morphine for pain control. Protonix PO. Monitor labs, specifically lipase. GI following; appreciate further recommendations. (2) Abdominal pain Code(s): R10.9 - Unspecified abdominal pain Status: Acute Plan: See Plan above. Hospital Course: Patient with epigastric pain on admission. CT abdomen/pelvis: No acute findings. Previous cholecystectomy with mild intrahepatic biliary ductal dilatation. Mild constipation. MRCP: Post cholecystectomy with commonly seen mild biliary ductal dilatation. Normal pancreatic duct. No evidence for choledocholithiasis. No acute findings. LFTs abnormal on admission, AST/ALT 103/612, improving today at 76/273. Lipase wnl. Tumor AFP wnl. Hepatitis panel nonreactive. SHERIE negative. Iron 226, TIBC 361, % saturation 62.6, ferritin 63. Ceruloplasmin 32. UA positive for moderate bilirubin, trace leukocyte esterase and 10 white blood cells. Culture indicated. Urine culture less than 50,000 CFU/mL of mixed jhonathan, probable contaminants. No treatment indicated. (3) Abnormal liver enzymes Code(s): R74.8 - Abnormal levels of other serum enzymes Status: Acute Plan: Improving. See Plan above. (4) Elevated bilirubin Code(s): R17 - Unspecified jaundice Status: Acute Plan: Improving. See Plan above. (5) Nutrition, metabolism, and development symptoms Code(s): R63.8 - Other symptoms and signs concerning food and fluid intake Status: Acute Plan: Fluid: LR at 200 ml/hr. Diet: Clear liquid diet - allow sips of water. Electrolytes: Monitor and replete as necessary. <Gi Millard - 08/11/18 08:50> - Assessment and Plan Discharge Planning: Pending clinical improvement and GI clearance. <Gi Millard - 08/11/18 09:06> - Attending Attestation The exam, history, and the medical decision-making described in the above note were completed with the assistance of the resident physician. I reviewed and agree with the findings presented. I attest that I had a [id number] encounter with the patient on the same day, and personally performed and documented my assessment and findings in the medical record. still with epigastric pain but much improved from yesterday. not vomiting. food averse. still smoe tenderness to light epigastric palpation feels pain controlled on current regimen but knwos she can ask for more if needed and we will increase it lipase downtrending significantly working with GI to determine diet but is on clear liquids for today and we will see how she does. if no further intervention, pain improving, and lipase still down trending, possibly advance cautiously tomorrow if ok with GI <Jesus Hong - 08/11/18 10:39> <Labell Gi Hale - Last Filed: 08/11/18 08:50> (2) Abdominal pain Qualifiers: Abdominal location: epigastric Qualified Code(s): R10.13 - Epigastric pain <Jesus Hong - Last Filed: 08/11/18 10:39> (2) Abdominal pain Qualifiers: Abdominal location: epigastric Qualified Code(s): R10.13 - Epigastric pain <Labell Gi Hale - Last Filed: 08/11/18 08:50> (2) Abdominal pain Qualifiers: Abdominal location: epigastric Qualified Code(s): R10.13 - Epigastric pain <Jesus Hong - Last Filed: 08/11/18 10:39> (2) Abdominal pain Qualifiers: Abdominal location: epigastric Qualified Code(s): R10.13 - Epigastric pain
[2018-08-11 12:15] LABS: Baso % (Auto) 0.3 % (0.0-2.0); Eos % (Auto) 0.4 % (0.0-4.0); Hematocrit 32.7 % (35.0-46.0); Lymph # (Auto) 0.8 th/mm3 (1.0-4.8); Lymph % (Auto) 8.4 % (9.0-44.0); Mean Corpuscular HGB Conc 33.5 % (32.0-36.0); Mean Corpuscular Hemoglobin 30.2 pg (27.0-34.0); Mean Corpuscular Volume 90.2 fL (80.0-100.0); Mean Platelet Volume 8.6 fL (7.0-11.0); Mono # (Auto) 0.7 th/mm3 (0.0-0.9); Neut # (Auto) 7.5 th/mm3 (1.8-7.7); Neut % (Auto) 82.9 % (16.0-70.0); Platelet Count 192 th/mm3 (150-450); Red Blood Count 3.63 mil/mm3 (4.00-5.30); Red Cell Distribution Width 12.6 % (11.6-17.2)
[2018-08-11] MEDS ORDERED: Morphine Inj 4 MG/ML Vial IM ONE (13:12)
[2018-08-11] MEDS ORDERED: Sod Chloride 0.9% Inj 1,000 ML IV.SIG SCH (14:15)
[2018-08-11] MEDS: Piperacil/Tazo 3.375 GM Premix 3.375 GM/50 ML PIGGYBACK IV.SIG SCH ×2 (15:33→22:06)
[2018-08-11] MEDS: Acetaminophen 325 MG Tablet PO PRN (15:33)
[2018-08-11] MEDS: Heparin - SQ 10,000 UNITS/ML Vial SQ SCH ×2 (15:34→22:55)
--- NOTE | 2018-08-11 20:58 | CT ---
EXAM DATE: 08/11/2018 8:52 PM EST AGE/SEX: 22 years / Female INDICATIONS: Diffuse abdominal pain, constipation. CLINICAL DATA: This is the patient's initial encounter. Patient reports that signs and symptoms have been present for 1 day and indicates a pain score of 6/10. MEDICAL/SURGICAL HISTORY: None. Cholecystectomy. ORAL CONTRAST: No oral contrast ingested. RADIATION DOSE: 17.59 CTDI (mGy) COMPARISON: [facility] – [place], CT ABDOMEN & PELVIS W CONTRAST, 08/07/2018. . TECHNIQUE: Multiple contiguous axial images were obtained through the abdomen and pelvis following b olus infusion of 95 ml Omnipaque 350 (iohexol) nonionic water-soluble contrast as a single exam dos e. No oral contrast ingested. Using automated exposure control and adjustment of the mA and/or kV ac cording to patient size, radiation dose was kept as low as reasonably achievable to obtain optimal di agnostic quality images. DICOM format image data is available electronically for review and comparis on. FINDINGS: Lower Lungs: Moderate atelectasis and left lower lobe. Mild atelectasis right lower lobe. Small left pleural effusion. Liver: Diffuse mild hepatic hypodensity indicating possible hepatic steatosis. No focal mass identifi ed. Cholecystectomy clips are noted. Spleen: Homogeneous density without enlargement. Pancreas: Unremarkable without mass or calcification. Kidneys: Normal in size and shape. No evidence of mass or hydronephrosis. Adrenal Glands: Unremarkable. Aorta: The aorta and proximal iliac vessels are grossly unremarkable without aneurysmal dilation. Bowel/Mesentery: No evidence of bowel dilatation. Small amount of free fluid in the dependent portio n of the pelvis. This is a greater amount than typical physiologic fluid fluid. Trace ascites in the abdomen. Appendix is within normal limits. Abdominal Wall: Intact. Retroperitoneum: No evidence of adenopathy in the retrocrural, para-aortic, or deep pelvic regions. Bladder: Contours are smooth. Reproductive Organs: No abnormal masses or calcifications seen. Inguinal: The inguinal region is unremarkable without evidence of adenopathy. Bony Structures: Unremarkable. CONCLUSION: 1. Small amount of ascites now seen with free fluid in the pelvis greater than typically seen with p hysiologic free fluid. 2. Possible hepatic steatosis. 3. Status post cholecystectomy. Electronically signed by: Brooks Aldana MD Board Certified Radiologist 08/11/2018 8:57 PM EST
--- NOTE | 2018-08-11 22:03 | XR ---
EXAM DATE: 08/11/2018 9:58 PM EST AGE/SEX: 22 years / Female INDICATIONS: . Fever. CLINICAL DATA: This is the patient's initial encounter. Patient reports that signs and symptoms have been present for 1 day and indicates a pain score of 0/10. MEDICAL/SURGICAL HISTORY: None. None. COMPARISON: No prior exams available for comparison. FINDINGS: PA and lateral views of the chest demonstrate the lungs to be under aerated without evidence of mass, infiltrate or effusion. The cardiomediastinal contours are unremarkable. Osseous structures are inta ct. CONCLUSION: Under aerated, otherwise negative Electronically signed by: Femi Flannery MD Board Certified Radiologist 08/11/2018 10:01 PM EST
[2018-08-12] MEDS: Acetaminophen 325 MG Tablet PO PRN ×2 (00:58→12:10)
[2018-08-12] MEDS: Morphine Inj 4 MG/ML Vial IV.PUSH PRN ×6 (01:34→20:53)
[2018-08-12] MEDS: Piperacil/Tazo 3.375 GM Premix 3.375 GM/50 ML PIGGYBACK IV.SIG SCH ×3 (03:50→14:12)
[2018-08-12 07:58] LABS: Baso % (Auto) 0.4 % (0.0-2.0); Eos # (Auto) 0.1 th/mm3 (0.0-0.4); Eos % (Auto) 1.2 % (0.0-4.0); Hematocrit 29.1 % (35.0-46.0); Hemoglobin 10.1 gm/dL (11.6-15.3); Lymph % (Auto) 11.1 % (9.0-44.0); Mean Corpuscular HGB Conc 34.7 % (32.0-36.0); Mean Corpuscular Hemoglobin 31.5 pg (27.0-34.0); Mean Corpuscular Volume 90.9 fL (80.0-100.0); Mean Platelet Volume 8.6 fL (7.0-11.0); Mono # (Auto) 0.8 th/mm3 (0.0-0.9); Neut # (Auto) 6.8 th/mm3 (1.8-7.7); Neut % (Auto) 78.3 % (16.0-70.0); Platelet Count 177 th/mm3 (150-450); Red Cell Distribution Width 12.7 % (11.6-17.2); White Blood Count 8.6 th/mm3 (4.0-11.0)
[2018-08-12 08:10] LABS: Aspartate Aminotransferase 60 U/L (15-37); Chloride 105 meq/L (98-107); Glomerular Filtration Rate Greater Than 89 mL/min (>89); Potassium 3.5 meq/L (3.5-5.1); Sodium 140 meq/L (136-145)
[2018-08-12 08:16] LABS: Alanine Aminotransferase 157 U/L (10-53); Albumin 2.6 g/dL (3.4-5.0); Alkaline Phosphatase 117 U/L (45-117); Anion Gap 7 meq/L (5-15); Blood Urea Nitrogen 3 mg/dL (7-18); Carbon Dioxide 27.7 meq/L (21.0-32.0); Glucose,Random 87 mg/dL (74-106); Lipase 472 U/L (73-393); Total Protein 6.3 g/dL (6.4-8.2)
[2018-08-12] MEDS: Heparin - SQ 10,000 UNITS/ML Vial SQ SCH ×2 (08:29→15:39)
--- NOTE | 2018-08-12 11:22 | P.PNFP ---
Subjective Interval history: Patient was seen and evaluated this morning. She reports abdominal soreness with some nausea. She denies vomiting. She is afraid to eat because she worries that the abdominal pain will return. She has taken sips of her coffee and ate a little bit of her breakfast. Patient has not had a bowel movement since admission. She denies chest pain and shortness of breath. All questions were answered. <Lonny HaleGi - 08/12/18 13:07> Results - Labs Result diagrams: 08/12/18 06:45 08/12/18 06:45 <Jesus Hong - 08/12/18 14:24> Abnormal lab results 08/12/18 08/12/18 Range/Units 06:45 06:45 RBC 3.20 L (4.00-5.30) mil/mm3 Hgb 10.1 L (11.6-15.3) gm/dL Hct 29.1 L (35.0-46.0) % Neut % (Auto) 78.3 H (16.0-70.0) % [place] % (Auto) 9.0 H (0.0-8.0) % BUN 3 L (7-18) mg/dL Calcium 8.0 L (8.5-10.1) mg/dL Total Bilirubin 2.0 H (0.2-1.0) mg/dL AST 60 H (15-37) U/L ALT 157 H (10-53) U/L Total Protein 6.3 L (6.4-8.2) g/dL Albumin 2.6 L (3.4-5.0) g/dL Lipase 472 H (73-393) U/L Short CBC 08/12/18 Range/Units 06:45 WBC 8.6 (4.0-11.0) th/mm3 Hgb 10.1 L (11.6-15.3) gm/dL Hct 29.1 L (35.0-46.0) % Plt Count 177 (150-450) th/mm3 BMP 08/12/18 06:45 Sodium 140 Potassium 3.5 Chloride 105 Carbon Dioxide 27.7 BUN 3 L Creatinine 0.65 Calcium 8.0 L Liver Function 08/12/18 Range/Units 06:45 Total Bilirubin 2.0 H (0.2-1.0) mg/dL AST 60 H (15-37) U/L ALT 157 H (10-53) U/L Alkaline Phosphatase 117 (45-117) U/L Albumin 2.6 L (3.4-5.0) g/dL <Jesus Hong K - 08/12/18 14:24> Abnormal lab results 08/11/18 08/12/18 08/12/18 Range/Units 11:36 06:45 06:45 RBC 3.63 L 3.20 L (4.00-5.30) mil/mm3 Hgb 11.0 L 10.1 L (11.6-15.3) gm/dL Hct 32.7 L 29.1 L (35.0-46.0) % Neut % (Auto) 82.9 H 78.3 H (16.0-70.0) % Lymph % (Auto) 8.4 L (9.0-44.0) % [place] % (Auto) 9.0 H (0.0-8.0) % Lymph # (Auto) 0.8 L (1.0-4.8) th/mm3 BUN 3 L (7-18) mg/dL Calcium 8.0 L (8.5-10.1) mg/dL Total Bilirubin 2.0 H (0.2-1.0) mg/dL AST 60 H (15-37) U/L ALT 157 H (10-53) U/L Total Protein 6.3 L (6.4-8.2) g/dL Albumin 2.6 L (3.4-5.0) g/dL Lipase 472 H (73-393) U/L Short CBC 08/11/18 08/12/18 Range/Units 11:36 06:45 WBC 9.0 8.6 (4.0-11.0) th/mm3 Hgb 11.0 L 10.1 L (11.6-15.3) gm/dL Hct 32.7 L 29.1 L (35.0-46.0) % Plt Count 192 177 (150-450) th/mm3 BMP 08/12/18 06:45 Sodium 140 Potassium 3.5 Chloride 105 Carbon Dioxide 27.7 BUN 3 L Creatinine 0.65 Calcium 8.0 L Liver Function 08/12/18 Range/Units 06:45 Total Bilirubin 2.0 H (0.2-1.0) mg/dL AST 60 H (15-37) U/L ALT 157 H (10-53) U/L Alkaline Phosphatase 117 (45-117) U/L Albumin 2.6 L (3.4-5.0) g/dL <Labell Kymberly Halein - 08/12/18 11:22> - Imaging Impressions Abdomen/Pelvis CT 08/11/18 00:00 CONCLUSION: 1. Small amount of ascites now seen with free fluid in the pelvis greater than typically seen with physiologic free fluid. 2. Possible hepatic steatosis. 3. Status post cholecystectomy. Chest X-Ray 08/11/18 00:00 CONCLUSION: Under aerated, otherwise negative <Jesus Hong - 08/12/18 14:24> Impressions Abdomen/Pelvis CT 08/11/18 00:00 CONCLUSION: 1. Small amount of ascites now seen with free fluid in the pelvis greater than typically seen with physiologic free fluid. 2. Possible hepatic steatosis. 3. Status post cholecystectomy. Chest X-Ray 08/11/18 00:00 CONCLUSION: Under aerated, otherwise negative <Labell Kymberly Halein - 08/12/18 11:22> Physical Exam Vital signs: Vital Signs 08/11/18 16:00 08/11/18 16:35 08/11/18 19:40 Temperature 100.4 F H 98.6 F Pulse Rate 103 H 97 H 116 H Respiratory Rate 18 18 Blood Pressure 136/81 163/85 H Pulse Oximetry 99 98 08/11/18 20:00 08/11/18 23:00 08/12/18 00:00 Temperature 100.2 F H Pulse Rate 102 H 105 H 95 H Respiratory Rate 18 Blood Pressure 133/76 Pulse Oximetry 98 08/12/18 00:56 08/12/18 03:45 08/12/18 04:00 Temperature 100.5 F H 99.5 F Pulse Rate 106 H 94 H Respiratory Rate 18 Blood Pressure 110/56 L Pulse Oximetry 93 L 08/12/18 08:00 08/12/18 12:00 Temperature 98.5 F 98 F Pulse Rate 100 H 108 H Respiratory Rate 18 18 Blood Pressure 126/62 141/81 H Pulse Oximetry 98 94 L Intake & Output 08/11/18 08/12/18 08/12/18 18:59 06:59 18:59 Intake Total 2560 / 2560 840 / 840 3070 / 3070 Output Total 1000 / 1000 Balance 2560 / 2560 -160 / -160 3070 / 3070 Weight 99.3 kg 98.3 kg Intake: IV 2560 / 2560 600 / 600 3070 / 3070 LR 1000 mL Inj 1,000 ML @ 200 1000 / 1000 mls/hr IV.CONT .Q5H KOMAL Rx#: [id number] KCl Inj 20 MEQ In LR 1000 mL 510 / 510 500 / 500 3020 / 3020 Inj 1,000 ML @ 140 mls/hr IV. CONT .Q7H13M [facility]OMAL Rx#:[id number] Zosyn 3.375 GM Premix 3.375 gm 50 / 50 100 / 100 50 / 50 In 50 ml @ 100 mls/hr IV.SIG Q6H KOMAL Rx#:[id number] NS Inj 1,000 ML @ 1000 mls/hr 1000 / 1000 IV.SIG BOLUS KOMAL Rx#:[id number] Oral 240 / 240 Output: Urine 1000 / 1000 Urine/Stool Mix 0 / 0 Other: # Voids 1 Date of Last Bowel Movement 08/09/18 # Bowel Movements 0 <Jesus Hong - 08/12/18 14:24> Vital Signs 08/11/18 12:00 08/11/18 13:55 08/11/18 16:00 Temperature 100 F H 101.1 F H 100.4 F H Pulse Rate 128 H 107 H 103 H Respiratory Rate 17 18 18 Blood Pressure 140/67 134/70 136/81 Pulse Oximetry 95 97 99 08/11/18 16:35 08/11/18 19:40 08/11/18 20:00 Temperature 98.6 F Pulse Rate 97 H 116 H 102 H Respiratory Rate 18 Blood Pressure 163/85 H Pulse Oximetry 98 08/11/18 23:00 08/12/18 00:00 08/12/18 00:56 Temperature 100.2 F H 100.5 F H Pulse Rate 105 H 95 H Respiratory Rate 18 Blood Pressure 133/76 Pulse Oximetry 98 08/12/18 03:45 08/12/18 04:00 08/12/18 08:00 Temperature 99.5 F 98.5 F Pulse Rate 106 H 94 H 100 H Respiratory Rate 18 18 Blood Pressure 110/56 L 126/62 Pulse Oximetry 93 L 98 Intake & Output 08/11/18 08/12/18 08/12/18 18:59 06:59 18:59 Intake Total 2560 / 2560 840 / 840 1050 / 1050 Output Total 1000 / 1000 Balance 2560 / 2560 -160 / -160 1050 / 1050 Weight 99.3 kg 98.3 kg Intake: IV 2560 / 2560 600 / 600 1050 / 1050 LR 1000 mL Inj 1,000 ML @ 200 1000 / 1000 mls/hr IV.CONT .Q5H KOMAL Rx#: [id number] KCl Inj 20 MEQ In LR 1000 mL 510 / 510 500 / 500 1000 / 1000 Inj 1,000 ML @ 200 mls/hr IV. CONT .Q5H3M [facility]AL Rx#:[id number] Zosyn 3.375 GM Premix 3.375 gm 50 / 50 100 / 100 50 / 50 In 50 ml @ 100 mls/hr IV.SIG Q6H KOMAL Rx#:[id number] NS Inj 1,000 ML @ 1000 mls/hr 1000 / 1000 IV.SIG BOLUS KOMAL Rx#:[id number] Oral 240 / 240 Output: Urine 1000 / 1000 Urine/Stool Mix 0 / 0 Other: # Voids 1 Date of Last Bowel Movement 08/09/18 # Bowel Movements 0 <Lonny Selene HaleGi - 08/12/18 11:22> Narrative: GENERAL: -Malagasy female, laying in bed, in no acute distress. SKIN: Warm and dry. HEAD: Atraumatic. Normocephalic. EYES: EMOI. No scleral icterus. No injection or drainage. CARDIOVASCULAR: Regular rate and rhythm. RESPIRATORY: No accessory muscle use. Clear to auscultation. Breath sounds equal bilaterally. GASTROINTESTINAL: Positive bowel sounds. Abdomen soft, nondistended. Diffuse tenderness upon palpation. MUSCULOSKELETAL: Extremities without clubbing, cyanosis, or edema. No obvious deformities. NEUROLOGICAL: Awake and alert. Normal speech. PSYCHIATRIC: Appropriate mood and affect; insight and judgment normal. <Lonny Gi aHle - 08/12/18 13:07> Assessment and Plan - Assessment (1) Sepsis Code(s): A41.9 - Sepsis, unspecified organism Status: Acute (2) Acute pancreatitis after endoscopic retrograde cholangiopancreatography ( ERCP) Code(s): K91.89 - Other postprocedural complications and disorders of digestive system; K85.90 - Acute pancreatitis without necrosis or infection, unspecified Status: Acute (3) Abdominal pain Code(s): R10.9 - Unspecified abdominal pain Status: Acute (4) Abnormal liver enzymes Code(s): R74.8 - Abnormal levels of other serum enzymes Status: Acute (5) Elevated bilirubin Code(s): R17 - Unspecified jaundice Status: Acute (6) Nutrition, metabolism, and development symptoms Code(s): R63.8 - Other symptoms and signs concerning food and fluid intake Status: Acute <Jesus Hong K - 08/12/18 14:24> (1) Sepsis Code(s): A41.9 - Sepsis, unspecified organism Status: Acute Plan: Patient met sepsis criteria on 08/12/18 with T 101.1, tachycardia (HR >100) and source of infection (pancreas). Patient received 1L NS bolus, followed by LR at 200 ml/hr. Patient started on Zosyn (08/12/18 -) CT abdomen/pelvis: Small amount of ascites now seen with free fluid in the pelvis greater than typically seen with physiologic free fluid. Possible hepatic steatosis. Status post cholecystectomy. Patient afebrile since midnight. Plan to stop Zosyn if afebrile for 24hrs. (2) Acute pancreatitis after endoscopic retrograde cholangiopancreatography ( ERCP) Code(s): K91.89 - Other postprocedural complications and disorders of digestive system; K85.90 - Acute pancreatitis without necrosis or infection, unspecified Status: Acute Plan: Patient s/p ERCP with sphincterotomy/papillotomy on 08/09/18. * ERCP with removal of calculus. Patient with diffuse abdominal pain this morning. Lipase downtrending; 472. Patient on full liquid diet. Encouraged to eat. IV hydration as below. Morphine for pain control. Protonix PO. Monitor labs, specifically lipase. GI following; appreciate further recommendations. (3) Abdominal pain Code(s): R10.9 - Unspecified abdominal pain Status: Acute Plan: See Plan above. (4) Abnormal liver enzymes Code(s): R74.8 - Abnormal levels of other serum enzymes Status: Acute Plan: Improving. See Plan above. (5) Elevated bilirubin Code(s): R17 - Unspecified jaundice Status: Acute Plan: Improving. See Plan above. (6) Nutrition, metabolism, and development symptoms Code(s): R63.8 - Other symptoms and signs concerning food and fluid intake Status: Acute Plan: Fluid: LR at 140 ml/hr. Diet: Full liquid diet. Electrolytes: Monitor and replete as necessary. <Gi Millard - 08/12/18 12:52> - Assessment and Plan Discharge Planning: Pending clinical improvement and GI clearance. Hospital Course: Patient with epigastric pain on admission. CT abdomen/pelvis: No acute findings. Previous cholecystectomy with mild intrahepatic biliary ductal dilatation. Mild constipation. MRCP: Post cholecystectomy with commonly seen mild biliary ductal dilatation. Normal pancreatic duct. No evidence for choledocholithiasis. No acute findings. LFTs abnormal on admission, AST/ALT 103/612, improving today at 76/273. Lipase wnl. Tumor AFP wnl. Hepatitis panel nonreactive. SHERIE negative. Iron 226, TIBC 361, % saturation 62.6, ferritin 63. Ceruloplasmin 32. UA positive for moderate bilirubin, trace leukocyte esterase and 10 white blood cells. Culture indicated. Urine culture less than 50,000 CFU/mL of mixed jhonathan, probable contaminants. No treatment indicated. <Gi Millard - 08/12/18 13:07> - Attending Attestation The exam, history, and the medical decision-making described in the above note were completed with the assistance of the resident physician. I reviewed and agree with the findings presented. I attest that I had a [id number] encounter with the patient on the same day, and personally performed and documented my assessment and findings in the medical record. lipase down trending and pain improving, still some TTP over epigastrium. still with food aversion. will try to start transitioning to PO and ADAT and continue to trend lipase no source of infection ID'd so will d/c zosyn. hopefully d/c in next 1-2 days if cleared by GI. <Jesus Hong - 08/12/18 14:24> <Labell Gi Hale Last Filed: 08/12/18 12:52> (3) Abdominal pain Qualifiers: Abdominal location: epigastric Qualified Code(s): R10.13 - Epigastric pain <Jesus Hong Kala - Last Filed: 08/12/18 14:24> (3) Abdominal pain Qualifiers: Abdominal location: epigastric Qualified Code(s): R10.13 - Epigastric pain <Labell Gi Hale - Last Filed: 08/12/18 12:52> (3) Abdominal pain Qualifiers: Abdominal location: epigastric Qualified Code(s): R10.13 - Epigastric pain <Jesus Hong Kala - Last Filed: 08/12/18 14:24> (3) Abdominal pain Qualifiers: Abdominal location: epigastric Qualified Code(s): R10.13 - Epigastric pain
[2018-08-12] MEDS: Bisacodyl 10 MG Supp RECTAL ONE ×2 (13:44→15:39)
--- NOTE | 2018-08-12 14:13 | P.DIET ---
Nutritional Evaluation Type of nutrition evaluation: initial Nutrition screening: Weight Loss > 10 lbs Objective - Diagnosis Epigastric abdominal pain - Objective Body Mass Index: 39 [place] body weight: 50 kg (110lb) % IBW: 196 Body Weight Used for Calculations: Upper end of IBW (50kg) Energy Needs - Lower Range (kCal/kg): 28 Energy Needs - Upper Range (kCal/kg): 32 Lower Limit kCal/kg (kCals): 1,400 Upper Limit kCal/kg (kCals): 1,600 Lower Limit Protein Factor (Grams per Kg): 1.0 (g/kg IBW) Upper Limit Protein Factor (Grams per Kg): 1.3 (g/kg IBW) Lower Protein Needs (Protein): 50 Upper Protein Needs (Protein): 65 Dietitian Reviewed in Medical Record: Current diet, Curent medications, Intake & Output, Labs, Medical history Diet Order: Full liquids Objective Comments: PMH;pt denies PMH Labs; lipase 44970 now trending downward at 472 Medications;reviewed Assessment Assessment: Pt presents to ED for epigastric pain and reports previous unplanned weight loss placing her at nutritional risk. Pt now s/p EGD and ECRP and found to have large stone close to ampulla of the pancreas and acute pancreatitis s/p stone removal. She is tolerating clear liquids at this time but reports she is afraid to try full liquids and experience pain again. I will send pt Ensure clear TID in order to provide some substantial nutritional substance if she will not take full liquids. Pt was agreeable to this. Labs and medications reviewed, will continue to monitor for diet advancement, PO intake and supplement acceptance. Recommendations: 1. Ensure clear nutritional supplement TID 2. Monitor for diet advancement Dietitian to Monitor: Lab values, Supplement acceptance, PO Intake, Diet advancement, Medical course
--- NOTE | 2018-08-12 17:11 | P.PNGI ---
Subjective Interval history: Awake and alert Sitting up in bed Reporting eating minimally due to fear of abdominal discomfort Denies nausea or vomiting on full liquid diet. Physical Exam Vital signs: Vital Signs 08/11/18 19:40 08/11/18 20:00 08/11/18 23:00 Temperature 98.6 F 100.2 F H Pulse Rate 116 H 102 H 105 H Respiratory Rate 18 18 Blood Pressure 163/85 H 133/76 Pulse Oximetry 98 98 08/12/18 00:00 08/12/18 00:56 08/12/18 03:45 Temperature 100.5 F H 99.5 F Pulse Rate 95 H 106 H Respiratory Rate 18 Blood Pressure 110/56 L Pulse Oximetry 93 L 08/12/18 04:00 08/12/18 08:00 08/12/18 12:00 Temperature 98.5 F 98 F Pulse Rate 94 H 100 H 108 H Respiratory Rate 18 18 Blood Pressure 126/62 141/81 H Pulse Oximetry 98 94 L Intake & Output 08/11/18 08/12/18 08/12/18 18:59 06:59 18:59 Intake Total 2560 / 2560 840 / 840 3120 / 3120 Output Total 1000 / 1000 Balance 2560 / 2560 -160 / -160 3120 / 3120 Weight 99.3 kg 98.3 kg Intake: IV 2560 / 2560 600 / 600 3120 / 3120 LR 1000 mL Inj 1,000 ML @ 200 1000 / 1000 mls/hr IV.CONT .Q5H KOMAL Rx#: [id number] KCl Inj 20 MEQ In LR 1000 mL 510 / 510 500 / 500 3020 / 3020 Inj 1,000 ML @ 140 mls/hr IV. CONT .Q7H13M [facility]OMAL Rx#:[id number] Zosyn 3.375 GM Premix 3.375 gm 50 / 50 100 / 100 100 / 100 In 50 ml @ 100 mls/hr IV.SIG Q6H KOMAL Rx#:[id number] NS Inj 1,000 ML @ 1000 mls/hr 1000 / 1000 IV.SIG BOLUS KOMAL Rx#:[id number] Oral 240 / 240 Output: Urine 1000 / 1000 Urine/Stool Mix 0 / 0 Other: # Voids 1 Date of Last Bowel Movement 08/09/18 # Bowel Movements 0 - Constitutional no acute distress, cooperative - Routine HEENT Exam Head: Present: normocephalic ENT: Present: mucous membranes moist - Routine Neck Exam Present: supple - Routine Respiratory Exam Present: CTA bilaterally. Absent: accessory muscle use - Routine Cardiovascular Exam Present: RRR - Routine Abdominal Exam Present: soft, normoactive bowel sounds, tenderness. Absent: distended, guarding, firm Comments: Minimal tenderness to palpation epigastrium - Routine Extremities Exam Absent: edema - Routine Skin Exam Present: dry, warm - Routine Neurological Exam Present: alert, oriented X3 Results - Labs CBC & Chem 7: 08/12/18 06:45 08/12/18 06:45 Laboratory Results - last 24 hr 08/08/18 08/12/18 08/12/18 11:33 06:45 06:45 WBC 8.6 RBC 3.20 L Hgb 10.1 L Hct 29.1 L MCV 90.9 MCH 31.5 MCHC 34.7 RDW 12.7 Plt Count 177 MPV 8.6 Neut % (Auto) 78.3 H Lymph % (Auto) 11.1 [place] % (Auto) 9.0 H Eos % (Auto) 1.2 Baso % (Auto) 0.4 Neut # (Auto) 6.8 Lymph # (Auto) 1.0 [place] # (Auto) 0.8 Eos # (Auto) 0.1 Baso # (Auto) 0.0 WBC Differential . Differential Comment Auto diff final Sodium 140 Potassium 3.5 Chloride 105 Carbon Dioxide 27.7 Anion Gap 7 BUN 3 L Creatinine 0.65 Estimated GFR Greater than 89 Random Glucose 87 Calcium 8.0 L Total Bilirubin 2.0 H AST 60 H ALT 157 H Alkaline Phosphatase 117 Total Protein 6.3 L Albumin 2.6 L Lipase 472 H Mitochondria M2 IgG Ab Less than 20.0 Microbiology 08/11/18 15:40 Blood - Line Aerobic Blood Culture - Preliminary No growth in 1 day 08/11/18 15:40 Blood - Line Anaerobic Blood Culture - Preliminary No growth in 1 day 08/11/18 15:44 Blood - Line Aerobic Blood Culture - Preliminary No growth in 1 day 08/11/18 15:44 Blood - Line Anaerobic Blood Culture - Preliminary No growth in 1 day - Imaging Impressions Abdomen/Pelvis CT 08/11/18 00:00 CONCLUSION: 1. Small amount of ascites now seen with free fluid in the pelvis greater than typically seen with physiologic free fluid. 2. Possible hepatic steatosis. 3. Status post cholecystectomy. Chest X-Ray 08/11/18 00:00 CONCLUSION: Under aerated, otherwise negative Assessment and Plan (1) Post-ERCP acute pancreatitis Status: Acute Code(s): K91.89 - Other postprocedural complications and disorders of digestive system; K85.90 - Acute pancreatitis without necrosis or infection, unspecified (2) Abdominal pain Status: Acute Code(s): R10.9 - Unspecified abdominal pain (3) Elevated bilirubin Status: Acute Code(s): R17 - Unspecified jaundice (4) Common bile duct dilatation Status: Acute Code(s): K83.8 - Other specified diseases of biliary tract - Plan Uncontrolled epigastric and gastric discomfort. Patient was seen in the ER approximately 2 days ago with right upper quadrant discomfort as well as uncontrolled epigastric pain. Pain initiated approximately 4 days before this admission acute onset associated with dyspepsia but no dysphasia. Patient denies any hematemesis or coffee-ground emesis and no diarrhea and no rectal bleed. Patient does note increased stressors secondary to work, college, and has noted dark orange urine as well as constipation over the past week. Patient is positive for social alcohol consumption 2-4 times a month as well as history of previous cholecystectomy 1 year ago uneventful until this point. Right upper quadrant is mild pressure to light palpation no other abdominal pain noted labs reviewed which show hemoglobin 13.3, WBC count 3.8, lipase 137, bilirubin 3.1, AST 309 elevated and ALT 612 elevated, alkaline phosphatase 210. Noted liver ultrasound on 215 showed no mass no stone and common bile duct [address] scan performed on 08/07/2018 shows previous cholecystectomy noted with mild intrahepatic biliary ductal dilatation, mild constipation otherwise no acute findings and no bowel obstruction no adenopathy. Gastroenterology was consulted to assist in her care transaminitis, hyperbilirubinemia causes as well as epigastric and gastric discomfort 10 out of 10 at time rule out inflammation versus ulcer disease Patient has had no previous EGD or colonoscopy and no family history of colon cancer or GI disease Dyspepsia uncontrolled, patient does note if she eats spicy foods and late at night due to her schedule. Patient states she is awakened at 1:59 AM with dyspepsia and it is worse in the evening time and after eating. She denies any ibuprofen or Aleve use . Stressors related to college, and work. Erratic eating schedule Hyperbilirubinemia, rule out hepatocellular disease Transaminitis unspecified rule out autoimmune versus obstruction versus infection or inflammation./Stones Social alcohol use, does not appear to be a heavy alcohol consumer History of cholecystectomy Obesity 08/08/2018 Transaminitis Dyspepsia Patient tolerating clear liquid diet without complaint of nausea or vomiting. Endorses generalized abdominal tenderness on palpation during exam -WBC 4.0 hemoglobin 11.5 hematocrit 33.8 -Total bilirubin 4.2 AST 124 ALT 356 alk phos 174 trending down-liver immunology pending -AFP 6.6 -SHERIE pending -Hepatitis panel nonreactive 08/07/2018 MRCP revealed the following : post cholecystectomy with commonly seen mild biliary ductal dilatation. Normal pancreatic duct. No evidence for choledocholithiasis. No acute findings. 08/10/2018 Assessment Patient status post ERCP with sphincterotomy/papillotomy ERCP with removal of calculus/calculi -08/09/2018 Post cholecystectomy biliary ductal dilatation Post ERCP with stones removal Acute pancreatitis post ERCP -abdominal pain secondary to post ERCP pancreatitis most likely due to reactive response to the removal of a huge stone close to the ampulla of the pancreas 08/12/2018 Post ERCP with sphincterotomy/papillotomy next WBC 8.6 hemoglobin 10.1 hematocrit 29.1 Total bilirubin 2.0 AST 60 ALT 157 alk phos 117 all trending down Lipase 472 Patient on full liquid diet, endorses caution with p.o. intake due to fear of abdominal discomfort. Patient advised to attempt increase in p.o. intake while hospitalized for supportive care if needed. Plan Full liquid diet for dinner May advance to soft diet for breakfast if patient tolerates Analgesics and antiemetics as per attending Protonix 40 mg p.o. twice daily ERCP as needed Supportive care Case management for discharge planning Patient stable from GI standpoint for discharge home to follow-up in office in 1 week. This patient has been seen by myself and Dr. Campbell and this note is written on his behalf - Attending Attestation Dr. Campbell (2) Abdominal pain Qualifiers: Abdominal location: epigastric Qualified Code(s): R10.13 - Epigastric pain
[2018-08-13] MEDS: Heparin - SQ 10,000 UNITS/ML Vial SQ SCH ×2 (00:41→08:52)
[2018-08-13] MEDS: Morphine Inj 4 MG/ML Vial IV.PUSH PRN ×2 (00:42→05:01)
[2018-08-13 06:58] LABS: Hematocrit 28.1 % (35.0-46.0); Hemoglobin 9.5 gm/dL (11.6-15.3); Mean Corpuscular HGB Conc 33.9 % (32.0-36.0); Mean Corpuscular Hemoglobin 30.9 pg (27.0-34.0); Mean Platelet Volume 8.9 fL (7.0-11.0); Platelet Count 185 th/mm3 (150-450); Red Blood Count 3.09 mil/mm3 (4.00-5.30); Red Cell Distribution Width 12.8 % (11.6-17.2); White Blood Count 7.8 th/mm3 (4.0-11.0)
[2018-08-13 07:19] LABS: Anion Gap 9 meq/L (5-15); Blood Urea Nitrogen 2 mg/dL (7-18); Calcium 8.5 mg/dL (8.5-10.1); Carbon Dioxide 26.2 meq/L (21.0-32.0); Chloride 106 meq/L (98-107); Glomerular Filtration Rate Greater Than 89 mL/min (>89); Glucose,Random 83 mg/dL (74-106); Lipase 221 U/L (73-393); Potassium 3.7 meq/L (3.5-5.1); Sodium 141 meq/L (136-145)
[2018-08-13] MEDS ORDERED: Naloxone Inj 0.4 MG/ML Vial IV.PUSH PRN (08:08)
[2018-08-13 09:31] VITALS: RESP 20
[2018-08-13] MEDS: Bisacodyl 10 MG Supp RECTAL ONE (09:42)
--- NOTE | 2018-08-13 11:25 | P.PNFP ---
Subjective Interval history: Patient was seen and evaluated this morning. She continues to experience an abdominal "ache." She denies nausea and vomiting. She is tolerating a full liquid diet. She has not yet had a bowel movement. She is agreeable to a suppository today. Patient is eager to go home today. All questions were answered. <Lonny HaleGi - 08/13/18 12:23> Results - Labs Result diagrams: 08/13/18 06:10 08/13/18 06:10 <Jesus Hong - 08/13/18 18:55> Abnormal lab results 08/13/18 08/13/18 Range/Units 06:10 06:10 RBC 3.09 L (4.00-5.30) mil/mm3 Hgb 9.5 L (11.6-15.3) gm/dL Hct 28.1 L (35.0-46.0) % BUN 2 L (7-18) mg/dL Short CBC 08/13/18 Range/Units 06:10 WBC 7.8 (4.0-11.0) th/mm3 Hgb 9.5 L (11.6-15.3) gm/dL Hct 28.1 L (35.0-46.0) % Plt Count 185 (150-450) th/mm3 [facility] 08/13/18 06:10 Sodium 141 Potassium 3.7 Chloride 106 Carbon Dioxide 26.2 BUN 2 L Creatinine 0.56 Calcium 8.5 <Jesus Hong - 08/13/18 18:55> Abnormal lab results 08/13/18 08/13/18 Range/Units 06:10 06:10 RBC 3.09 L (4.00-5.30) mil/mm3 Hgb 9.5 L (11.6-15.3) gm/dL Hct 28.1 L (35.0-46.0) % BUN 2 L (7-18) mg/dL Short CBC 08/13/18 Range/Units 06:10 WBC 7.8 (4.0-11.0) th/mm3 Hgb 9.5 L (11.6-15.3) gm/dL Hct 28.1 L (35.0-46.0) % Plt Count 185 (150-450) th/mm3 [facility] 08/13/18 06:10 Sodium 141 Potassium 3.7 Chloride 106 Carbon Dioxide 26.2 BUN 2 L Creatinine 0.56 Calcium 8.5 <Macoliudmila Gi Hale - 08/13/18 11:25> Physical Exam Vital signs: Vital Signs 08/12/18 20:00 08/13/18 00:00 08/13/18 04:00 Temperature 99.4 F 98.1 F Pulse Rate 92 H 93 H 89 Respiratory Rate 20 17 Blood Pressure 118/60 123/65 Pulse Oximetry 95 95 08/13/18 04:30 08/13/18 08:00 08/13/18 12:00 Temperature 99 F 98.0 F 98.1 F Pulse Rate 90 81 86 Respiratory Rate 16 20 20 Blood Pressure 120/59 L 107/60 135/68 Pulse Oximetry 95 95 95 Intake & Output 08/12/18 08/13/18 08/13/18 18:59 06:59 18:59 Intake Total 3600 / 3600 1897 / 1897 1000 / 1000 Balance 3600 / 3600 1897 / 1897 1000 / 1000 Weight 100 kg Intake: IV 3120 / 3120 1537 / 1537 1000 / 1000 KCl Inj 20 MEQ In LR 1000 mL 3020 / 3020 1537 / 1537 1000 / 1000 Inj 1,000 ML @ 140 mls/hr IV. CONT .Q7H13M [facility] Rx#:[id number] Zosyn 3.375 GM Premix 3.375 gm 100 / 100 In 50 ml @ 100 mls/hr IV.SIG Q6H [facility] Rx#:[id number] Oral 480 / 480 360 / 360 Other: # Voids 2 7 # Bowel Movements 0 0 <Jesus Hong - 08/13/18 18:55> Vital Signs 08/12/18 12:00 08/12/18 16:00 08/12/18 20:00 Temperature 98 F 99.3 F 99.4 F Pulse Rate 94 H 102 H 92 H Respiratory Rate 18 18 20 Blood Pressure 141/81 H 112/52 L 118/60 Pulse Oximetry 94 L 94 L 95 08/13/18 00:00 08/13/18 04:00 08/13/18 04:30 Temperature 98.1 F 99 F Pulse Rate 93 H 89 90 Respiratory Rate 17 16 Blood Pressure 123/65 120/59 L Pulse Oximetry 95 95 08/13/18 08:00 Temperature 98.0 F Pulse Rate 81 Respiratory Rate 20 Blood Pressure 107/60 Pulse Oximetry 95 Intake & Output 08/12/18 08/13/18 08/13/18 18:59 06:59 18:59 Intake Total 3600 / 3600 1897 / 1897 1000 / 1000 Balance 3600 / 3600 1897 / 1897 1000 / 1000 Weight 100 kg Intake: IV 3120 / 3120 1537 / 1537 1000 / 1000 KCl Inj 20 MEQ In LR 1000 mL 3020 / 3020 1537 / 1537 1000 / 1000 Inj 1,000 ML @ 140 mls/hr IV. CONT .Q7H13M [facility] Rx#:[id number] Zosyn 3.375 GM Premix 3.375 gm 100 / 100 In 50 ml @ 100 mls/hr IV.SIG Q6H [facility] Rx#:[id number] Oral 480 / 480 360 / 360 Other: # Voids 2 7 # Bowel Movements 0 0 <Gi Millard - 08/13/18 11:25> Narrative: GENERAL: -Italian female, laying in bed, in no acute distress. SKIN: Warm and dry. HEAD: Atraumatic. Normocephalic. EYES: EMOI. No scleral icterus. No injection or drainage. CARDIOVASCULAR: Regular rate and rhythm. RESPIRATORY: No accessory muscle use. Clear to auscultation. Breath sounds equal bilaterally. GASTROINTESTINAL: Positive bowel sounds. Abdomen soft, nondistended. Mild tenderness upon palpation. MUSCULOSKELETAL: Extremities without clubbing, cyanosis, or edema. No obvious deformities. NEUROLOGICAL: Awake and alert. Normal speech. PSYCHIATRIC: Appropriate mood and affect; insight and judgment normal. <Gi Millard - 08/13/18 12:23> Assessment and Plan - Assessment (1) Sepsis Code(s): A41.9 - Sepsis, unspecified organism Status: Resolved (2) Acute pancreatitis after endoscopic retrograde cholangiopancreatography ( ERCP) Code(s): K91.89 - Other postprocedural complications and disorders of digestive system; K85.90 - Acute pancreatitis without necrosis or infection, unspecified Status: Acute (3) Abdominal pain Code(s): R10.9 - Unspecified abdominal pain Status: Acute (4) Abnormal liver enzymes Code(s): R74.8 - Abnormal levels of other serum enzymes Status: Acute (5) Elevated bilirubin Code(s): R17 - Unspecified jaundice Status: Acute (6) Nutrition, metabolism, and development symptoms Code(s): R63.8 - Other symptoms and signs concerning food and fluid intake Status: Acute <Jesus Hong - 08/13/18 18:55> (1) Sepsis Code(s): A41.9 - Sepsis, unspecified organism Status: Resolved Plan: Resolved. Afebrile. Vitals stable. [place] (08/12/18 - 08/13/18) (2) Acute pancreatitis after endoscopic retrograde cholangiopancreatography ( ERCP) Code(s): K91.89 - Other postprocedural complications and disorders of digestive system; K85.90 - Acute pancreatitis without necrosis or infection, unspecified Status: Acute Plan: Improving. Patient s/p ERCP with sphincterotomy/papillotomy on 08/09/18. * ERCP with removal of calculus. Patient with mild abdominal pain this morning. Lipase downtrending; now wnl. Patient on full liquid diet. Encouraged to eat. [place] for pain control. Protonix PO. GI following; appreciate further recommendations. (3) Abdominal pain Code(s): R10.9 - Unspecified abdominal pain Status: Acute Plan: See Plan above. (4) Abnormal liver enzymes Code(s): R74.8 - Abnormal levels of other serum enzymes Status: Acute Plan: Improving. See Plan above. (5) Elevated bilirubin Code(s): R17 - Unspecified jaundice Status: Acute Plan: Improving. See Plan above. (6) Nutrition, metabolism, and development symptoms Code(s): R63.8 - Other symptoms and signs concerning food and fluid intake Status: Acute Plan: Fluid: Tolerating PO. Diet: Full liquid diet. Electrolytes: Monitor and replete as necessary. <Labell Gi Hale - 08/13/18 12:14> - Assessment and Plan Discharge Planning: Possibly today. Hospital Course: Patient with epigastric pain on admission. CT abdomen/pelvis: No acute findings. Previous cholecystectomy with mild intrahepatic biliary ductal dilatation. Mild constipation. MRCP: Post cholecystectomy with commonly seen mild biliary ductal dilatation. Normal pancreatic duct. No evidence for choledocholithiasis. No acute findings. LFTs abnormal on admission, AST/ALT 103/612, improving today at 76/273. Lipase wnl. Tumor AFP wnl. Hepatitis panel nonreactive. SHERIE negative. Iron 226, TIBC 361, % saturation 62.6, ferritin 63. Ceruloplasmin 32. UA positive for moderate bilirubin, trace leukocyte esterase and 10 white blood cells. Culture indicated. Urine culture less than 50,000 CFU/mL of mixed jhonathan, probable contaminants. No treatment indicated. Patient met sepsis criteria on 08/12/18 with T 101.1, tachycardia (HR >100) and source of infection (pancreas). CT abdomen/pelvis: Small amount of ascites now seen with free fluid in the pelvis greater than typically seen with physiologic free fluid. Possible hepatic steatosis. Status post cholecystectomy. <Gi Millard - 08/13/18 12:23> - Attending Attestation The exam, history, and the medical decision-making described in the above note were completed with the assistance of the resident physician. I reviewed and agree with the findings presented. I attest that I had a [id number] encounter with the patient on the same day, and personally performed and documented my assessment and findings in the medical record. lipase down abd pain improved, soft ntnd +BS tolerating PO can go home when has BM outpatient GI and pcp f/u <Jesus Hong - 08/13/18 18:55> <Gi Millard - Last Filed: 08/13/18 12:14> (3) Abdominal pain Qualifiers: Abdominal location: epigastric Qualified Code(s): R10.13 - Epigastric pain <Jesus Hong - Last Filed: 08/13/18 18:55> (3) Abdominal pain Qualifiers: Abdominal location: epigastric Qualified Code(s): R10.13 - Epigastric pain <Labell Gi Hale - Last Filed: 08/13/18 12:14> (3) Abdominal pain Qualifiers: Abdominal location: epigastric Qualified Code(s): R10.13 - Epigastric pain <Jesus Hong - Last Filed: 08/13/18 18:55> (3) Abdominal pain Qualifiers: Abdominal location: epigastric Qualified Code(s): R10.13 - Epigastric pain
[2018-08-13] MEDS ORDERED: Bisacodyl 10 MG Supp RECTAL ONE (12:30)
[2018-08-13 19:31] VITALS: BP 120/75; PULSE 90; TEMP 97.8; O2SAT 100
== END 2018-08-13 17:38 | disposition home or self-care (01) | DRG 393 ==
LOC: NEPC 11:31 → INTOOBSV 16:24 → OBSVTOIN 16:24 → NEDA 16:35 → NEPGCP 18:41 → N04 08-11 15:56
PROVIDERS: ADMIT Family Medicine; ATTEND Family Medicine
CPT/HCPCS: 71020; 71046; 74000; 74018; 74177; 74181; 74330; 76377; 80048; 80053; 80074; 81001; 82103; 82105; 82390; 82550; 82728; 83520; 83540; 83550; 83605; 83690; 84484; 85025; 85027; 85610; 85730; 86038; 86255; 86256; 87040; 87086; 90761; 90774; 90775; 90784; 96361; 96374; 96375; 99285; C1769; C8952; C9113; J0131; J0295; J1610; J1644; J2270; J2405; J2543; J2704; J3480; J7030; J7120; Q9967